=== PATIENT | female | born 1985 | race Caucasian/White ===

== ENCOUNTER 2016-03-25 05:00 | Inpatient (IN) | payer MEDICAID ==
[2016-03-24 10:44] LABS: ABSOLUTE BASOPHILS # (AUTO) 0.1 10^3/uL (0.0-0.2); ABSOLUTE EOSINOPHILS # (AUTO) 0.5 10^3/uL (0.0-0.6); ABSOLUTE LYMPHOCYTES (AUTO) 2.6 10^3/uL (0.5-4.7); ABSOLUTE MONOCYTES (AUTO) 0.8 10^3/uL (0.1-1.4); ABSOLUTE NEUT (AUTO) 9.6 10^3/uL (1.7-8.2); BASOPHILS % (AUTO) 0.5 % (0-2); EOSINOPHILS % (AUTO) 3.8 % (0-6); HEMATOCRIT 35.9 % (36.0-47.0); HGB HCT DIFFERENCE 0.1; LYMPHOCYTES % (AUTO) 19.4 % (13-45); MEAN CORPUSCULAR HGB CONC 33.4 g/dL (32.0-36.0); MEAN CORPUSCULAR VOLUME 78 fl (80-97); MONOCYTES % (AUTO) 6.2 % (3-13); RED BLOOD COUNT 4.62 10^6/uL (3.72-5.28); RED CELL DISTRIBUTION WIDTH 15.8 % (11.5-14.0); SEGMENTED NEUTROPHILS % (AUTO) 70.1 % (42-78); WHITE BLOOD COUNT 13.7 10^3/uL (4.0-10.5)
[2016-03-24 11:07] LABS: APPEARANCE,URINE CLEAR; BILIRUBIN,URINE NEGATIVE (NEGATIVE); GLUCOSE, URINE NEGATIVE (NEGATIVE); KETONES,URINE NEGATIVE (NEGATIVE); LEUKOCYTE ESTERASE,URINE NEGATIVE (NEGATIVE); NITRITE,URINE NEGATIVE (NEGATIVE); PROTEIN,URINE NEGATIVE (NEGATIVE); URINE SPECIFIC GRAVITY 1.018; UROBILINOGEN,URINE NEGATIVE mg/dL (<2.0)
[2016-03-24 21:01] LABS: URINE BARBITURATES SCREEN NEGATIVE; URINE METHADONE SCREEN NEGATIVE; URINE PHENCYCLIDINE SCREEN NEGATIVE
[~2016-03-25 05:00] MED LIST: CEFAZOLIN SODIUM 1 GM in DEXTROSE 5%-WATER 50 ML IV SCH; LACTATED RINGERS 1000 ML IV PRN; LIDOCAINE 0.5% INJ-PF (5 MG/ML) 50 ML SDV SUBCUT PRN; RINGERS SOLUTION,LACTATED 1,000 ML IV ONE
[2016-03-25] MEDS ORDERED: CEFAZOLIN 1 GM/D5W RTU 1 GM/50 ML RTUPB IV ONE (06:52)
[2016-03-25] MEDS ORDERED: DIPHENHYDRAMINE HCL 50 MG/ML VIAL IV PRN (08:19)
[2016-03-25] MEDS ORDERED: MEPERIDINE HCL/PF INJ 25 MG/1 ML DISP.SYRIN IV PRN (08:19)
[2016-03-25] MEDS ORDERED: OXYCODONE-ACETAMINOPHEN 5-325 MG TABLET PO PRN ×3 (08:19→11:13)
[2016-03-25] MEDS ORDERED: PROMETHAZINE HCL INJ 25 MG/1 ML VIAL IV PRN ×3 (08:19→11:13)
[2016-03-25] MEDS ORDERED: MORPHINE SULFATE 10 MG/ML INJ IV PRN (08:19)
[2016-03-25] MEDS ORDERED: FENTANYL CITRATE INJ/PF 100 MCG/2 ML AMPUL IV PRN ×3 (08:19)
--- NOTE | 2016-03-25 08:47 | Non Stress Test Report ---
Non Stress Test Datetime Report Generated by CPN: 03/25/2016 08:46 DEMOGRAPHIC EGA NST: 33.5 INDICATION Indication for Study: Decreased Movement; Ordered by Provider MONITORING Monitor Explained: Monitor Explained; Test Explained; Patient Verbalized Understanding Time on Monitor: 02/15/2016 17:38 Time off Monitor: 02/15/2016 18:07 NST Duration: 29 NST INTERVENTIONS NST Interventions: PO Hydration Physician Notified NST: Dr. Peters BABY A: [id number] BABY A Contraction Frequency : None FHR Baseline : 135 Accelerations : 15X15 Decelerations : None Variability : Moderate 6-25bpm NST Review: Meets Criteria for Reactive NST NST Review and Verified By : Kiran Pruitt, RN NST Results: Reactive NST REPORT Report Trigger: Send Report
[2016-03-25] MEDS ORDERED: OXYTOCIN 10 UNIT/ML VIAL ONE (09:13)
[2016-03-25] MEDS ORDERED: OXYTOCIN/NORMAL SALINE 20 UNIT/1,000 ML RTUINJ ONE (09:14)
[2016-03-25] MEDS ORDERED: FENTANYL CITRATE INJ/PF 100 MCG/2 ML AMPUL ONE (09:14)
[2016-03-25] MEDS ORDERED: MIDAZOLAM 2 MG/2 ML INJ ONE (09:14)
[2016-03-25] MEDS ORDERED: ACETAMINOPHEN 100 ML IV ONE (09:16)
[2016-03-25] MEDS ORDERED: MEPERIDINE HCL/PF INJ 25 MG/1 ML DISP.SYRIN ONE (10:02)
[2016-03-25] MEDS ORDERED: MORPHINE SULFATE 10 MG/ML INJ ONE (10:02)
--- NOTE | 2016-03-25 10:41 | Brief Operative Note ---
BRIEF OPERATIVE REPORT DATE OF SURGERY: 03/25/16 TIME OF SURGERY: 08:00 PREOPERATIVE DIAGNOSIS: 39w , previous section times 3, 10cm right ovarian cyst POSTOPERATIVE DIAGNOSIS: same, delivered, simple right ovarian cyst SURGEON: BIJAN MUÑOZ FINDINGS: vaible female weight 8-14, ap 8/9; spontaneous intact placenta 3vc; 10cm right simple ovarian cyst, normal uterus and tubes COMPLICATIONS: none ESTIMATED BLOOD LOSS: 600cc TISSUE REMOVED OR ALTERED: placenta, ovarian cyst TECHNICAL PROCEDURE: Repeat Low Transverse Section. Right Ovarian Cystectomy
[2016-03-25] MEDS ORDERED: SIMETHICONE 80 MG TAB.CHEW PO PRN (11:13)
[2016-03-25] MEDS ORDERED: HYDROMORPHONE HCL INJ/PF 2 MG/ML AMPULE IV PRN (11:13)
[2016-03-25] MEDS ORDERED: DIPH/PERTUSS(ACELL)/TETANUS VAC/PF 0.5 ML SYR (>=10YO) IM PRN (11:13)
[2016-03-25] MEDS ORDERED: MEASLES,MUMPS&RUBELLA VACC/PF 0.5 ML VIAL SUBCUT PRN (11:13)
[2016-03-25] MEDS ORDERED: ACETAMINOPHEN 325 MG TABLET PO PRN (11:13)
[2016-03-25] MEDS ORDERED: OXYTOCIN/NORMAL SALINE 1,000 ML IV PRN (11:13)
--- NOTE | 2016-03-25 12:01 | L&D Flow Sheet ---
LD Flowsheet Datetime Report Generated by CPN: 03/25/2016 12:00 Datetime: 03/25/2016 11:00 Respirations: 16 (Annette Ra, RN) Pain Scale: 2 (Annette Ra, RN) Pain Presence: Intermittent (Annette Ra, RN) Pain Type: Cramping (Annette Ra, RN) Pain Location: Abdomen (Annette Ra, RN) Pain Relief Measures: Comfort Measures (Annette Ra, RN) Datetime: 03/25/2016 10:45 Pulse: 61 (QS system process) SpO2 (%): 100 (QS system process) Pain Scale: 2 (Annette Ra, RN) Pain Presence: Intermittent (Annette Ra, RN) Pain Type: Cramping; Ache (Annette Ra, RN) Pain Location: Abdomen (Annette Ra, RN) Pain Relief Measures: Comfort Measures (Annette Ra, RN) Datetime: 03/25/2016 10:40 NBP Sys/Edel/Mean (mmHg): 106 (QS system process) : 71 (QS system process) : 82 (QS system process) Pulse: 70 (QS system process) Pulse: 64 (QS system process) SpO2 (%): 99 (QS system process) Datetime: 03/25/2016 10:35 Pulse: 60 (QS system process) SpO2 (%): 98 (QS system process) Datetime: 03/25/2016 10:30 Pulse: 57 (QS system process) Respirations: 17 (Annette Ra, RN) SpO2 (%): 100 (QS system process) Pain Scale: 2 (Annette Ra, RN) Pain Presence: Intermittent (Annette Ra, RN) Pain Type: Cramping; Ache (Annette Ra, RN) Pain Location: Abdomen (Annette Ra, RN) Pain Relief Measures: Comfort Measures (Annette Ra, RN) Datetime: 03/25/2016 10:25 NBP Sys/Deel/Mean (mmHg): 108 (QS system process) : 71 (QS system process) : 86 (QS system process) Pulse: 63 (QS system process) Pulse: 60 (QS system process) SpO2 (%): 99 (QS system process) Datetime: 03/25/2016 10:20 Pulse: 62 (QS system process) SpO2 (%): 99 (QS system process) Datetime: 03/25/2016 10:15 Pulse: 63 (QS system process) Respirations: 17 (Annette Ra, RN) SpO2 (%): 99 (QS system process) Pain Scale: 3 (Annette Knapp, RN) Pain Presence: Constant (Annette Knapp, RN) Pain Type: Burning; Ache (Annette Ra, RN) Pain Location: Abdomen (Annette Ra, RN) Pain Relief Measures: Comfort Measures (Annette Ra, RN) Datetime: 03/25/2016 10:10 NBP Sys/Edel/Mean (mmHg): 103 (QS system process) : 67 (QS system process) : 82 (QS system process) Pulse: 59 (QS system process) SpO2 (%): 99 (QS system process) Datetime: 03/25/2016 10:05 Pulse: 60 (QS system process) SpO2 (%): 99 (QS system process) Datetime: 03/25/2016 10:00 Pulse: 69 (QS system process) SpO2 (%): 98 (QS system process) Temperature (F): 98.0 (Annette Knapp RN) Temperature (C): 36.7 (QS system process) Pain Scale: 4 (Annette Knapp RN) Pain Presence: Intermittent (Annette Knapp RN) Pain Type: Burning; Ache (Annette Knapp RN) Pain Location: Abdomen (Annette Knapp RN) Pain Relief Measures: Comfort Measures (Annette Knapp RN) Pain Assessment Comments: pt requesting pain medication and medication for the shivering (Annette Knapp RN) Datetime: 03/25/2016 09:55 NBP Sys/Edel/Mean (mmHg): 106 (QS system process) : 64 (QS system process) : 78 (QS system process) Pulse: 71 (QS system process) Pulse: 67 (QS system process) SpO2 (%): 99 (QS system process) Datetime: 03/25/2016 09:50 Pulse: 74 (QS system process) SpO2 (%): 98 (QS system process) Datetime: 03/25/2016 09:45 Pulse: 66 (QS system process) Pulse: 64 (QS system process) SpO2 (%): 98 (QS system process) SpO2 (%): 94 (QS system process) Pain Scale: 0 (Annette Knapp RN) Pain Presence: None/Denies (Annette Knapp RN) Pain Type: N/A (Annette Knapp RN) Datetime: 03/25/2016 09:40 NBP Sys/Edel/Mean (mmHg): 102 (QS system process) : 63 (QS system process) : 78 (QS system process) Pulse: 69 (QS system process) Pulse: 74 (QS system process) SpO2 (%): 99 (QS system process) Datetime: 03/25/2016 09:35 Pulse: 77 (QS system process) SpO2 (%): 99 (QS system process) Datetime: 03/25/2016 09:30 Pulse: 91 (QS system process) SpO2 (%): 98 (QS system process) Pain Scale: 0 (Annette Ra, RN) Pain Presence: None/Denies (Annette Ra, RN) Pain Type: N/A (Annette Ra, RN) Datetime: 03/25/2016 09:25 NBP Sys/Edel/Mean (mmHg): 100 (QS system process) : 55 (QS system process) : 70 (QS system process) Pulse: 68 (QS system process) Pulse: 61 (QS system process) SpO2 (%): 100 (QS system process) Datetime: 03/25/2016 09:20 Pulse: 70 (QS system process) SpO2 (%): 98 (QS system process) Datetime: 03/25/2016 09:15 Pulse: 75 (QS system process) SpO2 (%): 98 (QS system process) Pain Scale: 0 (Annette Ra, RN) Pain Presence: None/Denies (Annette Ra, RN) Pain Type: N/A (Annette Ra, RN) Datetime: 03/25/2016 09:10 NBP Sys/Edel/Mean (mmHg): 98 (QS system process) : 55 (QS system process) : 71 (QS system process) Pulse: 70 (QS system process) Pulse: 74 (QS system process) SpO2 (%): 97 (QS system process) Datetime: 03/25/2016 09:08 NBP Sys/Edel/Mean (mmHg): 94 (QS system process) : 55 (QS system process) : 68 (QS system process) Pulse: 74 (QS system process) Datetime: 03/25/2016 09:06 Stage of : Recovery (Annette Knapp RN) NBP Sys/Edel/Mean (mmHg): 98 (QS system process) : 56 (QS system process) : 72 (QS system process) Pulse: 76 (QS system process) Datetime: 03/25/2016 09:02 Respirations: 16 (Annette Knapp RN) Temperature (F): 97.0 (Annette Knapp RN) Temperature (C): 36.1 (QS system process) Pain Scale: 0 (Annette Knapp RN) Pain Presence: None/Denies (Annette Knapp RN) Pain Type: N/A (Annette Knapp RN) LaborFlag: Antepartum (QS system process)
[2016-03-25] MEDS: OXYCODONE-ACETAMINOPHEN 5-325 MG TABLET PO PRN ×3 (12:28→23:54)
[2016-03-25] MEDS: RINGERS SOLUTION,LACTATED 1,000 ML IV PRN ×2 (12:31→20:40)
[2016-03-25] MEDS ORDERED: KETOROLAC TROMETHAMINE INJ/PF 30 MG/1 ML SDV IV SCH (14:00)
[2016-03-25] MEDS ORDERED: KETOROLAC TROMETHAMINE 60 MG/2 ML SDV ONE (14:24)
[2016-03-25] MEDS ORDERED: PHENYLEPHRINE HCL INJ/PF 10 MG/1 ML SDV ONE (14:24)
[2016-03-25] MEDS ORDERED: ONDANSETRON HCL INJ/PF 4 MG/2 ML SDV ONE (14:24)
[2016-03-25] MEDS: DOCUSATE SODIUM 100 MG CAPSULE PO SCH (17:30)
[2016-03-25] MEDS: KETOROLAC TROMETHAMINE INJ/PF 30 MG/1 ML SDV IV SCH (17:31)
[2016-03-26] MEDS: KETOROLAC TROMETHAMINE INJ/PF 30 MG/1 ML SDV IV SCH (02:06)
--- NOTE | 2016-03-26 06:11 | L&D Current Admission ---
Current Admit Datetime Report Generated by CPN: 03/26/2016 06:00 ADMISSION INFORMATION Chief Complaint: Decreased Movement (02/15/2016 17:53:Ade Brewster RN)
--- NOTE | 2016-03-26 06:12 | L&D General Admission ---
General Admit Datetime Report Generated by CPN: 03/26/2016 06:00 INFORMATION Patient Age: 30 (01/31/2016 21:05:QS system process) EDC: 03/30/2016 00:00 (01/31/2016 21:28:Bria Christian RN) EDC per Ultrasound: 03/30/2016 00:00 (01/31/2016 21:28:Bria Christian RN) LMP: 06/14/2015 00:00 (01/31/2016 21:28:Bria Christian RN) : 4 (01/31/2016 21:28:Bria Christian RN) Para: 3 (01/31/2016 21:28:Bria Christian RN) Term: 3 (01/31/2016 21:28:Bria Christian RN) : 0 (01/31/2016 21:28:Bria Christian RN) Spontaneous Abortions: 0 (01/31/2016 21:28:Bria Christian RN) Induced Abortions: 0 (01/31/2016 21:28:Bria Christian RN) Livin (01/31/2016 21:28:Bria Christian RN) Cesareans: 3 (01/31/2016 21:28:Bria Christian RN) VBACs: 0 (01/31/2016 21:28:Bria Christain RN) Ectopic: 0 (01/31/2016 21:28:Bria Christian RN) Multiple Births: 0 (01/31/2016 21:28:Bria Christian RN) Baby, Number in Womb: 1 (01/31/2016 21:28:Bria Christian RN) CARE Primary Director Product Safety: Other-Annotate (01/31/2016 21:28:Bria Christian RN) Director Product Safety [facility] (01/31/2016 21:28:Bria Christian RN) Month of 1st Visit: July (01/31/2016 21:28:Bria Christian RN) Adequate Care: Yes (01/31/2016 21:28:Bria Christian RN) Height (in): 65 (01/31/2016 21:23:QS system process) ALLERGIES Medication Allergy: No (01/31/2016 21:28:Bria Ring, RN) Medication Allergies: No Known Allergies (03/20/2016) (03/25/2016 07:42:QS system process) Latex Allergy: No Latex Allergies (01/31/2016 21:28:Bria Ring, RN) Food Allergies: None (01/31/2016 21:28:Bria Ring, RN) Environmental Allergies: None (01/31/2016 21:28:Bria Ring, RN) COMMUNICATION Primary Language: German (01/31/2016 21:28:Bria Ring, RN) Medical Tx Preferred Language: German (01/31/2016 21:28:Bria Ring, RN) DEMOGRAPHICS Address: [address] [place] [id number] (03/25/2016 07:42:QS system process) Zipcode: [id number] (01/31/2016 21:05:QS system process) Home (01/31/2016 21:05:QS system process) Work (01/31/2016 21:05:QS system process) SSN: [id number] (01/31/2016 21:05:QS system process) Next of Kin Name: ANJALI TEE (01/31/2016 21:05:QS system process) Next of Kin (01/31/2016 21:05:QS system process) Next of Kin Relationship: SPO (01/31/2016 21:05:QS system process) Date of : 1985 (01/31/2016 21:05:QS system process) Marital Status: (01/31/2016 21:05:QS system process) Sex: Female (01/31/2016 21:05:QS system process) Race: (01/31/2016 21:05:QS system process) Ethnicity: Non- or (01/31/2016 21:05:QS system process) Adventism: Hoahaoism (01/31/2016 21:05:QS system process) DRUG AND ALCOHOL USE Alcohol: No (01/31/2016 21:28:Bria Christian RN) Cigarettes: Former Smoker. [id number] (01/31/2016 21:28:Bria Christian RN) Marijuana: No (01/31/2016 21:28:Bria Christian RN) Cocaine: No (01/31/2016 21:28:Bria Christian RN) Other Illicit Drugs: No (01/31/2016 21:28:Bria Christian RN) VACCINE HISTORY Influenza Vaccine: No (01/31/2016 21:28:Bria Christian RN) Pneumococcal Vaccine: No (01/31/2016 21:28:Bria Christian RN) Tetanus Vaccine: Yes (01/31/2016 21:28:Bria Christian RN) Tdap Vaccine: Yes (01/31/2016 21:28:Bria Christian RN) Tdap Date: 2015 (01/31/2016 21:28:Bria Christian RN) Hepatitis B Vaccine: Yes (01/31/2016 21:28:Bria Christian RN) Feeding Preference: Breast (01/31/2016 21:28:Bria Christian RN) Benefit of Breast Feed Discussed: Yes (01/31/2016 21:28:Bria Christian RN) Circumcision: N/A (01/31/2016 21:28:Bria Christian RN) Classes Attended: No (01/31/2016 21:28:Bria Christian RN) Tubal Ligation: Yes (01/31/2016 21:28:Bria Christian RN) Consent: N/A (01/31/2016 21:28:Bria Christian RN) Consent Signed: N/A (01/31/2016 21:28:Bria Christian RN) Pain Management Plans: Spinal (01/31/2016 21:28:Bria Christian RN) Support Person: Anjali Tee (01/31/2016 21:28:Bria Christian RN) Support Person Relationship: (01/31/2016 21:28:Bria Christian RN) Cultural/Spritual Practice: No (01/31/2016 21:28:Bria Christian RN) Spir/Cult Dietary Needs: No (01/31/2016 21:28:Bria Christian RN) LIVING SITUATION/DISCHARGE PLAN Living Arrangements: House (01/31/2016 21:28:Bria Christian RN) Adequate Access to:: Electric; Heat; Refrigeration; Plumbing/Running water; Phone; Transportation (01/31/2016 21:28:Bria Christian RN) WIC Program: Yes (01/31/2016 21:28:Bria Christian RN) Discharge Water Manager Person: Anjali (01/31/2016 21:28:Bria Christian RN) Person to Help after Discharge: Anjali (01/31/2016 21:28:Bria Christian RN) Currently Using Commun Resources: Yes (01/31/2016 21:28:Bria Christian RN) Specify Current Resource Used: Medicaid and foodstamps (01/31/2016 21:28:Bria Christian RN) Outside Agency/Orange Picker: N/A (01/31/2016 21:28:Bria Christian RN) Car Seat for Discharge: Yes (01/31/2016 21:28:Bria Christian RN) Adoption Requested: No (01/31/2016 21:28:Bria Christian RN) Pt Contact w/infant Post : N/A (01/31/2016 21:28:Bria Ring, RN) LABS Blood Type: O Positive (01/31/2016 21:28:Bria Christian RN) Antibody Screen: Negative (01/31/2016 21:28:Bria Christian RN) Hemoglobin: 12.0 (03/24/2016 09:50:QS system process) Hematocrit: 35.9 L (03/24/2016 09:50:QS system process) MCV: 78 L (03/24/2016 09:50:QS system process) HIV Results: NEGATIVE (01/31/2016 22:01:QS system process) Rubella: POSITIVE NEGATIVE IF LESS THAN OR EQUAL TO 9.99 IU/mL POSITIVE IF GREATER THAN OR EQUAL TO 10.0 IU/mL (01/31/2016 22:01:QS system process) Rubella Titer: 23.60 (01/31/2016 22:01:QS system process) OB/PREVIOUS HISTORY LMP: 06/14/2015 00:00 (01/31/2016 21:28:Bria Christian RN) Previous Procedures: Ultrasound (01/31/2016 21:28:Bria Christian RN) Current Procedures: Ultrasound (01/31/2016 21:28:Bria Christian RN) History of Previous : Yes (01/31/2016 21:28:Bria Christian RN) History of Gestational Diabetes: No (01/31/2016 21:28:Bria Christian RN) History of PIH: No (01/31/2016 21:28:Bria Christian RN) History of Incompetent Cervix: No (01/31/2016 21:28:Bria Christian RN) History of Placenta Previa/Abrup: No (01/31/2016 21:28:Bria Christian RN) History of Macrosomia: Yes (01/31/2016 21:28:Bria Christian RN) History of IUGR: No (01/31/2016 21:28:Bria Christian RN) History of Hemorrhage: No (01/31/2016 21:28:Bria Christian RN) History of Loss/Stillborn: No (01/31/2016 21:28:Bria Christian RN) History of : No (01/31/2016 21:28:Bria Christian RN) History of D (Rh) Sensitization: No (01/31/2016 21:28:Bria Christian RN) History Recurrent Loss/Stillborn: No (01/31/2016 21:28:Bria Christian RN) History Depression/PP Depression: No (01/31/2016 21:28:Bria Christian RN) History of Uterine Anomaly/SUHAS: No (01/31/2016 21:28:Bria Christian RN) History of Infertility: No (01/31/2016 21:28:Brai Christian RN) History of ART Treatment: No (01/31/2016 21:28:Bria Christian RN) History of SUHAS: No (01/31/2016 21:28:Bria Christian RN) Comments Obstetrical History: G1: 2004; for breech presentation (42 weeks; baby turned during induction); boy 9#10 oz G2: 2006; repeat ; boy 8# 12 oz G3: 2012; repeat ; girl 10#15 oz (01/31/2016 21:28:Bria Christian RN) MEDICAL HISTORY Med Hx Diabetes: No (01/31/2016 21:28:Bria Christian RN) Med Hx Hypertension: No (01/31/2016 21:28:Bria Christian RN) Med Hx Heart Disease: No (01/31/2016 21:28:Bria Christian RN) Med Hx Autoimmune Disorder: No (01/31/2016 21:28:Bria Christian RN) Med Hx Kidney Disease/UTI: No (01/31/2016 21:28:Bria Christian RN) Med Hx Neurologic/Epilepsy: No (01/31/2016 21:28:Bria Christian RN) Med Hx Psychiatric Disorders: No (01/31/2016 21:28:Bria Christian RN) Med Hx Hepatitis/Liver Disease: No (01/31/2016 21:28:Bria Christian RN) Med Hx Varicosities/Phlebitis: No (01/31/2016 21:28:Bria Christian RN) Med Hx Thyroid Dysfunction: No (01/31/2016 21:28:Bria Christian RN) Med Hx Trauma/Violence: No (01/31/2016 21:28:Bria Christian RN) Med Hx Blood Transfusion: No (01/31/2016 21:28:Bria Christian RN) Med Hx Pulmonary (Asthma,TB): No (01/31/2016 21:28:Bria Christian RN) Med Hx Breast: No (01/31/2016 21:28:Bria Christian RN) Med Hx 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 MACHINE 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 Surgery: No (01/31/2016 21:28:Bria Christian RN) Med Hx Hospitalization/Surgery: Yes (01/31/2016 21:28:Bria Christian RN) Med Hx Anesthetic Complications: No (01/31/2016 21:28:Bria Christian RN) Med Hx Abnormal Pap Smear: Yes (01/31/2016 21:28:Bria Christian RN) Other Medical Diseases: No (01/31/2016 21:28:Bria Christian RN) Med Hx Significant Family Hx: No (01/31/2016 21:28:Bria Christian RN) Details of Med/Surg Hx: hospitalized for prior ; MRSA in 2014 (surgically removed in pubic area) (01/31/2016 21:28:Bria Christian RN) INFECTIOUS HISTORY Inf Hx Gonorrhea: No (01/31/2016 21:28:Bria Christian RN) Inf Hx Chlamydia: No (01/31/2016 21:28:Bria Christian RN) Inf Hx Syphilis: No (01/31/2016 21:28:Bria Christian RN) Inf Hx HIV/AIDS: No (01/31/2016 21:28:Bria Christian RN) Inf Hx Human Papilloma Virus: No (01/31/2016 21:28:Bria Christian RN) Inf Hx Pt/Partner Genital Herpes: No (01/31/2016 21:28:Bria Christian RN) Inf Hx Tuberculosis/Exposure: No (01/31/2016 21:28:Bria Christian RN) Inf Hx Hepatitis B,C: No (01/31/2016 21:28:Bria Christian RN) Inf Hx Rash or Viral Illness: No (01/31/2016 21:28:Bria Christian RN) GENETIC HISTORY Gen Hx Age >=35 at RK: Yes (01/31/2016 21:28:Bria Christian RN) Gen Hx Thalassemia: No (01/31/2016 21:28:Bria Christian RN) Gen Hx Congenital Heart Defect: No (01/31/2016 21:28:Bria Christian RN) Gen Hx Neural Tube Defect: No (01/31/2016 21:28:Bria Christian RN) Gen Hx Down's Syndrome: No (01/31/2016 21:28:Bria Christian RN) Gen Hx Allan-Sachs: No (01/31/2016 21:28:Bria Christian RN) Gen Hx Elio: No (01/31/2016 21:28:Bria Christian RN) Gen Hx Familial Dysautonomia: No (01/31/2016 21:28:Bria Christian RN) Gen Hx Sickle Cell Disease/Trait: Yes (01/31/2016 21:28:Bria Christian RN) Gen Hx Hemophilia/Blood Disorder: No (01/31/2016 21:28:Bria Christian RN) Gen Hx Muscular Dystrophy: No (01/31/2016 21:28:Bria Christian RN) Gen Hx Cystic Fibrosis: No (01/31/2016 21:28:Bria Christian RN) Gen Hx Huntingtons Chorea: No (01/31/2016 21:28:Bria Christian RN) Gen Hx Mental Retardation/Autism: No (01/31/2016 21:28:Bria Christian RN) Gen Hx Tested for Fragile X: No (01/31/2016 21:28:Bria Christian RN) Gen Hx Other Inher/Chromosomal: No (01/31/2016 21:28:Bria Christian RN) Gen Hx Maternal Metabolic DO: Yes (01/31/2016 21:28:Bria Christian RN) Gen Hx Pt Father or FOB Defect: No (01/31/2016 21:28:Bria Christian RN) Gen Hx Other Genetic History: No (01/31/2016 21:28:Bria Christian RN) Gen Hx Drugs/Meds since LMP: Yes (01/31/2016 21:28:Bria Christian RN) Gen Hx Medications: PNV; antacids (01/31/2016 21:28:Bria Christian RN) Details of Genetic History: RANDELL is 44 years old; FOB has sickle cell trait and all three children carry trait; FOB has cousins that from sickle cell; mom's father from type I diabetes (01/31/2016 21:28:Bria Christian RN)
[2016-03-26] MEDS: OXYCODONE-ACETAMINOPHEN 5-325 MG TABLET PO PRN ×3 (06:36→19:02)
[2016-03-26 07:51] LABS: HEMATOCRIT 29.8 % (36.0-47.0); HEMOGLOBIN 10.1 g/dL (12.0-15.5); HGB HCT DIFFERENCE 0.5; MEAN CORPUSCULAR HEMOGLOBIN 25.9 pg (27.0-33.4); MEAN CORPUSCULAR HGB CONC 33.9 g/dL (32.0-36.0); MEAN CORPUSCULAR VOLUME 77 fl (80-97); RED CELL DISTRIBUTION WIDTH 16.1 % (11.5-14.0); WHITE BLOOD COUNT 15.6 10^3/uL (4.0-10.5)
--- NOTE | 2016-03-26 09:02 | PDOC PROGRESS REPORT ---
Subjective-OB Subjective: Post Delivery Day: 1 30 year old. Denies any needs at this time, is voiding without difficulty, pain well controlled, lochia is stable, tolerating diet, passing gas. Physical Exam (OB) Vital Signs: Temp Pulse Resp BP Pulse Ox 98.1 F 87 16 111/63 99 03/26/16 07:24 03/26/16 07:24 03/26/16 07:24 03/26/16 07:24 03/26/16 07:24 Intake & Output 03/25/16 03/26/16 03/27/16 06:59 06:59 06:59 Intake Total 430 2850 Output Total 1500 Balance 430 1350 - Dressing Removed: No - medipore dressing removed; peripad placed over incision Incision: Dressing Closure Type: Sutures - Lochia Lochia Amount: Scant < 10 ml Lochia Color: Rubra/Red - Abdomen Description: Tender, Soft Hernia Present: No Fundal Description: Firm, Midline Fundal Height: u/u - u/2 Objective-Diagnostic Laboratory: 03/26/16 07:30 03/26/16 07:30 WBC 15.6 H RBC 3.90 Hgb 10.1 L Hct 29.8 L MCV 77 L MCH 25.9 L MCHC 33.9 RDW 16.1 H Plt Count 271 Assessment and Plan(PN) - Assessment and Plan (1) Status post repeat low transverse section Is this a current diagnosis for this admission?: YesPlan: routine post op care - Time Spent with Patient Time with patient: Less than 15 minutes Critical Time spent with patient: Less than 15 minutes Medications reviewed and adjusted accordingly: Yes - Disposition Anticipated Discharge: Home Within: within 24 hours
[2016-03-26] MEDS: PRENATAL VITAMIN W-O CA NO5/FE FUMARATE/FA CAPSULE PO SCH (09:18)
[2016-03-26] MEDS: IBUPROFEN 800 MG TABLET PO SCH ×3 (09:18→20:27)
[2016-03-26] MEDS: DOCUSATE SODIUM 100 MG CAPSULE PO SCH ×2 (09:19→19:02)
[2016-03-26] MEDS ORDERED: IBUPROFEN 800 MG TABLET PO SCH (12:00)
[2016-03-27] MEDS: OXYCODONE-ACETAMINOPHEN 5-325 MG TABLET PO PRN ×2 (01:08→07:06)
[2016-03-27] MEDS: IBUPROFEN 800 MG TABLET PO SCH ×2 (03:48→09:29)
--- NOTE | 2016-03-27 06:12 | L&D General Admission ---
General Admit Datetime Report Generated by CPN: 03/27/2016 06:00 INFORMATION Patient Age: 30 (01/31/2016 21:05:QS system process) EDC: 03/30/2016 00:00 (01/31/2016 21:28:Bria Christian RN) EDC per Ultrasound: 03/30/2016 00:00 (01/31/2016 21:28:Bria Christian RN) LMP: 06/14/2015 00:00 (01/31/2016 21:28:Bria Christian RN) : 4 (01/31/2016 21:28:Bria Christian RN) Para: 3 (01/31/2016 21:28:Bria Christian RN) Term: 3 (01/31/2016 21:28:Bria Christian RN) : 0 (01/31/2016 21:28:Bria Christian RN) Spontaneous Abortions: 0 (01/31/2016 21:28:Bria Christian RN) Induced Abortions: 0 (01/31/2016 21:28:Bria Christian RN) Livin (01/31/2016 21:28:Bria Christian RN) Cesareans: 3 (01/31/2016 21:28:Bria Christian RN) VBACs: 0 (01/31/2016 21:28:Bria Christian RN) Ectopic: 0 (01/31/2016 21:28:Bria Christian RN) Multiple Births: 0 (01/31/2016 21:28:Bria Christian RN) Baby, Number in Womb: 1 (01/31/2016 21:28:Bria Christian RN) CARE Primary Grounding Engineer: Other-Annotate (01/31/2016 21:28:Bria Christian RN) Grounding Engineer Other: [facility] (01/31/2016 21:28:Bria Christian RN) Month of 1st Visit: July (01/31/2016 21:28:Bria Christian RN) Adequate Care: Yes (01/31/2016 21:28:Bria Christian RN) Height (in): 65 (01/31/2016 21:23:QS system process) ALLERGIES Medication Allergy: No (01/31/2016 21:28:Bria Ring, RN) Medication Allergies: No Known Allergies (03/20/2016) (03/25/2016 07:42:QS system process) Latex Allergy: No Latex Allergies (01/31/2016 21:28:Bria Ring, RN) Food Allergies: None (01/31/2016 21:28:Bria Ring, RN) Environmental Allergies: None (01/31/2016 21:28:Bria Ring, RN) COMMUNICATION Primary Language: Yakut (01/31/2016 21:28:Bria Ring, RN) Medical Tx Preferred Language: Yakut (01/31/2016 21:28:Bria Ring, RN) DEMOGRAPHICS Address: [address] [place] [id number] (03/25/2016 07:42:QS system process) Zipcode: [id number] (01/31/2016 21:05:QS system process) Home (01/31/2016 21:05:QS system process) Work (01/31/2016 21:05:QS system process) SSN: [id number] (01/31/2016 21:05:QS system process) Next of Kin Name: ANJALI TEE (01/31/2016 21:05:QS system process) Next of Kin (01/31/2016 21:05:QS system process) Next of Kin Relationship: SPO (01/31/2016 21:05:QS system process) Date of : 1985 (01/31/2016 21:05:QS system process) Marital Status: (01/31/2016 21:05:QS system process) Sex: Female (01/31/2016 21:05:QS system process) Race: (01/31/2016 21:05:QS system process) Ethnicity: Non- or (01/31/2016 21:05:QS system process) Christian: Faith (01/31/2016 21:05:QS system process) DRUG AND ALCOHOL USE Alcohol: No (01/31/2016 21:28:Bria Christian RN) Cigarettes: Former Smoker. [id number] (01/31/2016 21:28:Bria Christian RN) Marijuana: No (01/31/2016 21:28:Bria Christian RN) Cocaine: No (01/31/2016 21:28:Bria Christian RN) Other Illicit Drugs: No (01/31/2016 21:28:Bria Christian RN) VACCINE HISTORY Influenza Vaccine: No (01/31/2016 21:28:Bria Christian RN) Pneumococcal Vaccine: No (01/31/2016 21:28:Bria Christian RN) Tetanus Vaccine: Yes (01/31/2016 21:28:Bria Christian RN) Tdap Vaccine: Yes (01/31/2016 21:28:Bria Christian RN) Tdap Date: 2015 (01/31/2016 21:28:Bria Christian RN) Hepatitis B Vaccine: Yes (01/31/2016 21:28:Bria Christian RN) Feeding Preference: Breast (01/31/2016 21:28:Bria Christian RN) Benefit of Breast Feed Discussed: Yes (01/31/2016 21:28:Bria Christian RN) Circumcision: N/A (01/31/2016 21:28:Bria Christian RN) Classes Attended: No (01/31/2016 21:28:Bria Christian RN) Tubal Ligation: Yes (01/31/2016 21:28:Bria Christian RN) Consent: N/A (01/31/2016 21:28:Bria Christian RN) Consent Signed: N/A (01/31/2016 21:28:Bria Christian RN) Pain Management Plans: Spinal (01/31/2016 21:28:Bria Christian RN) Support Person: Anjali Tee (01/31/2016 21:28:Bria Christian RN) Support Person Relationship: (01/31/2016 21:28:Bria Christian RN) Cultural/Spritual Practice: No (01/31/2016 21:28:Bria Christian RN) Spir/Cult Dietary Needs: No (01/31/2016 21:28:Bria Christian RN) LIVING SITUATION/DISCHARGE PLAN Living Arrangements: House (01/31/2016 21:28:Bria Christian RN) Adequate Access to:: Electric; Heat; Refrigeration; Plumbing/Running water; Phone; Transportation (01/31/2016 21:28:Bria Christian RN) WIC Program: Yes (01/31/2016 21:28:Bria Christian RN) Discharge Core Blower Person: Anjali (01/31/2016 21:28:Bria Christian RN) Person to Help after Discharge: Anjali (01/31/2016 21:28:Bria Christian RN) Currently Using Commun Resources: Yes (01/31/2016 21:28:Bria Christian RN) Specify Current Resource Used: Medicaid and foodstamps (01/31/2016 21:28:Bria Christian RN) Outside Agency/Loss Prevention Manager: N/A (01/31/2016 21:28:Bria Christian RN) Car Seat for Discharge: Yes (01/31/2016 21:28:Bria Christian RN) Adoption Requested: No (01/31/2016 21:28:Bria Christian RN) Pt Contact w/infant Post : N/A (01/31/2016 21:28:Bria Ring, RN) LABS Blood Type: O Positive (01/31/2016 21:28:Bria Christian RN) Antibody Screen: Negative (01/31/2016 21:28:Bria Christian RN) Hemoglobin: 10.1 L (03/26/2016 07:30:QS system process) Hematocrit: 29.8 L (03/26/2016 07:30:QS system process) MCV: 77 L (03/26/2016 07:30:QS system process) HIV Results: NEGATIVE (01/31/2016 22:01:QS system process) Rubella: POSITIVE NEGATIVE IF LESS THAN OR EQUAL TO 9.99 IU/mL POSITIVE IF GREATER THAN OR EQUAL TO 10.0 IU/mL (01/31/2016 22:01:QS system process) Rubella Titer: 23.60 (01/31/2016 22:01:QS system process) OB/PREVIOUS HISTORY LMP: 06/14/2015 00:00 (01/31/2016 21:28:Bria Christian RN) Previous Procedures: Ultrasound (01/31/2016 21:28:Bria Christian RN) Current Procedures: Ultrasound (01/31/2016 21:28:Bria Christian RN) History of Previous : Yes (01/31/2016 21:28:Bria Christian RN) History of Gestational Diabetes: No (01/31/2016 21:28:Bria Christian RN) History of PIH: No (01/31/2016 21:28:Bria Christian RN) History of Incompetent Cervix: No (01/31/2016 21:28:Bria Christian RN) History of Placenta Previa/Abrup: No (01/31/2016 21:28:Bria Christian RN) History of Macrosomia: Yes (01/31/2016 21:28:Bria Christian RN) History of IUGR: No (01/31/2016 21:28:Bria Christian RN) History of Hemorrhage: No (01/31/2016 21:28:Bria Christian RN) History of Loss/Stillborn: No (01/31/2016 21:28:Bria Christian RN) History of : No (01/31/2016 21:28:Bria Christian RN) History of D (Rh) Sensitization: No (01/31/2016 21:28:Bria Christian RN) History Recurrent Loss/Stillborn: No (01/31/2016 21:28:Bria Christian RN) History Depression/PP Depression: No (01/31/2016 21:28:Bria Christian RN) History of Uterine Anomaly/SUHAS: No (01/31/2016 21:28:Bria Christian RN) History of Infertility: No (01/31/2016 21:28:Bria Christian RN) History of ART Treatment: No (01/31/2016 21:28:Bria Christian RN) History of SUHAS: No (01/31/2016 21:28:Bria Christian RN) Comments Obstetrical History: G1: 2004; for breech presentation (42 weeks; baby turned during induction); boy 9#10 oz G2: 2006; repeat ; boy 8# 12 oz G3: 2012; repeat ; girl 10#15 oz (01/31/2016 21:28:Bria Christian RN) MEDICAL HISTORY Med Hx Diabetes: No (01/31/2016 21:28:Bria Christian RN) Med Hx Hypertension: No (01/31/2016 21:28:Bria Christian RN) Med Hx Heart Disease: No (01/31/2016 21:28:Bria Christian RN) Med Hx Autoimmune Disorder: No (01/31/2016 21:28:Bria Christian RN) Med Hx Kidney Disease/UTI: No (01/31/2016 21:28:Bira Christian RN) Med Hx Neurologic/Epilepsy: No (01/31/2016 21:28:Bria Christian RN) Med Hx Psychiatric Disorders: No (01/31/2016 21:28:Bria Christian RN) Med Hx Hepatitis/Liver Disease: No (01/31/2016 21:28:Bria Christian RN) Med Hx Varicosities/Phlebitis: No (01/31/2016 21:28:Bria Christian RN) Med Hx Thyroid Dysfunction: No (01/31/2016 21:28:Bria Christian RN) Med Hx Trauma/Violence: No (01/31/2016 21:28:Bria Christian RN) Med Hx Blood Transfusion: No (01/31/2016 21:28:Bria Christian RN) Med Hx Pulmonary (Asthma,TB): No (01/31/2016 21:28:Bria Christian RN) Med Hx Breast: No (01/31/2016 21:28:Bria Christian RN) Med Hx CATEGORY DEVELOPMENT MANAGER Surgery: No (01/31/2016 21:28:Bria Christian RN) Med Hx Hospitalization/Surgery: Yes (01/31/2016 21:28:Bria Christian RN) Med Hx Anesthetic Complications: No (01/31/2016 21:28:Bria Christian RN) Med Hx Abnormal Pap Smear: Yes (01/31/2016 21:28:Bria Christian RN) Other Medical Diseases: No (01/31/2016 21:28:Bria Christian RN) Med Hx Significant Family Hx: No (01/31/2016 21:28:Bria Christian RN) Details of Med/Surg Hx: hospitalized for prior ; MRSA in 2014 (surgically removed in pubic area) (01/31/2016 21:28:Bria Christian RN) INFECTIOUS HISTORY Inf Hx Gonorrhea: No (01/31/2016 21:28:Bria Christian RN) Inf Hx Chlamydia: No (01/31/2016 21:28:Bria Christian RN) Inf Hx Syphilis: No (01/31/2016 21:28:Bria Christian RN) Inf Hx HIV/AIDS: No (01/31/2016 21:28:Bria Christian RN) Inf Hx Human Papilloma Virus: No (01/31/2016 21:28:Bria Christian RN) Inf Hx Pt/Partner Genital Herpes: No (01/31/2016 21:28:Bria Christian RN) Inf Hx Tuberculosis/Exposure: No (01/31/2016 21:28:Bria Christian RN) Inf Hx Hepatitis B,C: No (01/31/2016 21:28:Bria Christian RN) Inf Hx Rash or Viral Illness: No (01/31/2016 21:28:Bria Christian RN) GENETIC HISTORY Gen Hx Age >=35 at RK: Yes (01/31/2016 21:28:Bria Christian RN) Gen Hx Thalassemia: No (01/31/2016 21:28:Bria Christian RN) Gen Hx Congenital Heart Defect: No (01/31/2016 21:28:Bria Christian RN) Gen Hx Neural Tube Defect: No (01/31/2016 21:28:Bria Christian RN) Gen Hx Down's Syndrome: No (01/31/2016 21:28:Bria Christian RN) Gen Hx Allan-Sachs: No (01/31/2016 21:28:Bria Christian RN) Gen Hx Elio: No (01/31/2016 21:28:Bria Christian RN) Gen Hx Familial Dysautonomia: No (01/31/2016 21:28:Bria Christian RN) Gen Hx Sickle Cell Disease/Trait: Yes (01/31/2016 21:28:Bria Christian RN) Gen Hx Hemophilia/Blood Disorder: No (01/31/2016 21:28:Bria Christian RN) Gen Hx Muscular Dystrophy: No (01/31/2016 21:28:Bria Christian RN) Gen Hx Cystic Fibrosis: No (01/31/2016 21:28:Bria Christian RN) Gen Hx [place] Chorea: No (01/31/2016 21:28:Bria Christian RN) Gen Hx Mental Retardation/Autism: No (01/31/2016 21:28:Bria Christian RN) Gen Hx Tested for Fragile X: No (01/31/2016 21:28:Bria Christian RN) Gen Hx Other Inher/Chromosomal: No (01/31/2016 21:28:Bria Christian RN) Gen Hx Maternal Metabolic DO: Yes (01/31/2016 21:28:Bria Christian RN) Gen Hx Pt Father or FOB Defect: No (01/31/2016 21:28:Bria Christian RN) Gen Hx Other Genetic History: No (01/31/2016 21:28:Bria Christian RN) Gen Hx Drugs/Meds since LMP: Yes (01/31/2016 21:28:Bria Christian RN) Gen Hx Medications: PNV; antacids (01/31/2016 21:28:Bria Christian RN) Details of Genetic History: RANDELL is 44 years old; FOB has sickle cell trait and all three children carry trait; FOB has cousins that from sickle cell; mom's father from type I diabetes (01/31/2016 21:28:Bria Christian RN)
--- NOTE | 2016-03-27 06:12 | L&D Current Admission ---
Current Admit Datetime Report Generated by CPN: 03/27/2016 06:00 ADMISSION INFORMATION Chief Complaint: Decreased Movement (02/15/2016 17:53:Ade Brewster RN)
[2016-03-27] MEDS: DOCUSATE SODIUM 100 MG CAPSULE PO SCH (09:28)
[2016-03-27] MEDS: PRENATAL VITAMIN W-O CA NO5/FE FUMARATE/FA CAPSULE PO SCH (09:29)
[2016-03-27 12:07] VITALS: BP 113/73
--- NOTE | 2016-03-27 13:24 | PDOC DISCHARGE SUMMARY ---
Discharge Summary-OB Discharge Date: 03/27/16 - Final Diagnosis (1) Status post repeat low transverse section Is this a current diagnosis for this admission?: Yes - Discharge Medication Home Medications: Vit/Iron Fumarate/FA [ Tablet] 1 each PO DAILY 01/31/16 Docusate Sodium [Colace 100 mg Capsule] 100 mg PO BID #60 capsule 03/27/16 Ferrous Sulfate [Feosol 325 mg Tablet] 325 mg PO BID #60 tab 03/27/16 Ibuprofen [Motrin 800 mg Tablet] 800 mg PO Q8HP PRN #90 tablet 03/27/16 Oxycodone HCl/Acetaminophen [Percocet 5-325 mg Tablet] 1 tab PO Q4HP PRN #30 tablet 03/27/16 Pnv W-O Ca No5/Fe Fumarate/FA [-U Multiple Vitamin Capsule] 1 cap PO DAILY #0 capsule 03/27/16 Reason(s) for Admission: Ceasarean Section-Repeat Procedures: NST, Ultrasound Intrapartum Procedure(s): : Low Cervical, Transverse - [place] Data Baby 1 Female at 1 minute: 8 at 5 minutes: 9 Weight: 4.026 kg Home with Mother: Yes Complications: No - Diagnosis Test Laboratory: Temp Pulse Resp BP Pulse Ox 97.7 F 76 18 110/62 100 03/27/16 09:50 03/27/16 09:50 03/27/16 09:50 03/27/16 09:50 03/27/16 09:50 03/24/16 03/24/16 03/26/16 09:45 09:50 07:30 RBC 4.62 3.90 Hgb 12.0 10.1 L Hct 35.9 L 29.8 L Urine Opiates Screen NEGATIVE - Discharge information/Instructions Discharge Activity: Activity As Tolerated, No Driving, No Lifting Over 10 Pounds , No Lifting/Push/Pulling, Pelvic Rest, No tub bath Discharge Diet: As Tolerated Disposition: HOME, SELF-CARE Follow up with: [facility] in: 1, Weeks - incision check Physical Exam (OB) Vital Signs: Temp Pulse Resp BP Pulse Ox 97.7 F 76 18 110/62 100 03/27/16 09:50 03/27/16 09:50 03/27/16 09:50 03/27/16 09:50 03/27/16 09:50 Intake & Output 03/26/16 03/27/16 03/28/16 06:59 06:59 06:59 Intake Total 2850 1580 400 Output Total 1500 Balance 1350 1580 400 - General General Appearance: Appears well, Alert In distress: None - Dressing Removed: Yes - pink peripad in place over sutures Incision: Well Approximated Closure Type: Sutures - Lochia Lochia Amount: Scant < 10 ml Lochia Color: Rubra/Red - Abdomen Description: Tender, Soft Hernia Present: No Flatus Presence: Present Fundal Description: Firm, Midline Fundal Height: u/u - u/2 - Respiratory Respiratory Status: No respiratory distress - Extremities Upper extremity: Normal inspection Lower extremities: Normal inspection - Neurological Cognition: Normal Orientation: AAOx4 - Psychological Associated symptoms: Normal affect, Normal mood - bonding well with baby, family supportive and at bedside
--- NOTE | 2016-03-28 06:13 | L&D Current Admission ---
Current Admit Datetime Report Generated by CPN: 03/28/2016 06:00 ADMISSION INFORMATION Chief Complaint: Decreased Movement (02/15/2016 17:53:Ade Brewster RN)
--- NOTE | 2016-03-28 06:13 | L&D General Admission ---
General Admit Datetime Report Generated by CPN: 03/28/2016 06:00 INFORMATION Patient Age: 30 (01/31/2016 21:05:QS system process) EDC: 03/30/2016 00:00 (01/31/2016 21:28:Bria Christian RN) EDC per Ultrasound: 03/30/2016 00:00 (01/31/2016 21:28:Bria Christian RN) LMP: 06/14/2015 00:00 (01/31/2016 21:28:Bria Christian RN) : 4 (01/31/2016 21:28:Bria Christian RN) Para: 3 (01/31/2016 21:28:Bria Christian RN) Term: 3 (01/31/2016 21:28:Bria Christian RN) : 0 (01/31/2016 21:28:Bria Christian RN) Spontaneous Abortions: 0 (01/31/2016 21:28:Bria Christian RN) Induced Abortions: 0 (01/31/2016 21:28:Bria Christian RN) Livin (01/31/2016 21:28:Bria Christian RN) Cesareans: 3 (01/31/2016 21:28:Bria Christian RN) VBACs: 0 (01/31/2016 21:28:Bria Christian RN) Ectopic: 0 (01/31/2016 21:28:Bria Christian RN) Multiple Births: 0 (01/31/2016 21:28:Bria Christian RN) Baby, Number in Womb: 1 (01/31/2016 21:28:Bria Christian RN) CARE Primary Display Manager: Other-Annotate (01/31/2016 21:28:Bria Christian RN) Display Manager Other: [facility] (01/31/2016 21:28:Bria Christian RN) Month of 1st Visit: July (01/31/2016 21:28:Bria Christian RN) Adequate Care: Yes (01/31/2016 21:28:Bria Christian RN) Height (in): 65 (01/31/2016 21:23:QS system process) ALLERGIES Medication Allergy: No (01/31/2016 21:28:Bria Ring, RN) Medication Allergies: No Known Allergies (03/20/2016) (03/25/2016 07:42:QS system process) Latex Allergy: No Latex Allergies (01/31/2016 21:28:Bria Ring, RN) Food Allergies: None (01/31/2016 21:28:Bria Ring, RN) Environmental Allergies: None (01/31/2016 21:28:Bria Ring, RN) COMMUNICATION Primary Language: Arabic (01/31/2016 21:28:Bria Ring, RN) Medical Tx Preferred Language: Arabic (01/31/2016 21:28:Bria Ring, RN) DEMOGRAPHICS Address: [address] [place] [id number] (03/25/2016 07:42:QS system process) Zipcode: [id number] (01/31/2016 21:05:QS system process) Home (01/31/2016 21:05:QS system process) Work (01/31/2016 21:05:QS system process) SSN: [id number] (01/31/2016 21:05:QS system process) Next of Kin Name: ANJALI TEE (01/31/2016 21:05:QS system process) Next of Kin (01/31/2016 21:05:QS system process) Next of Kin Relationship: SPO (01/31/2016 21:05:QS system process) Date of : 1985 (01/31/2016 21:05:QS system process) Marital Status: (01/31/2016 21:05:QS system process) Sex: Female (01/31/2016 21:05:QS system process) Race: (01/31/2016 21:05:QS system process) Ethnicity: Non- or (01/31/2016 21:05:QS system process) Yarsani: Uatsdin (01/31/2016 21:05:QS system process) DRUG AND ALCOHOL USE Alcohol: No (01/31/2016 21:28:Bria Christian RN) Cigarettes: Former Smoker. [id number] (01/31/2016 21:28:Bria Christian RN) Marijuana: No (01/31/2016 21:28:Bria Christian RN) Cocaine: No (01/31/2016 21:28:Bria Christian RN) Other Illicit Drugs: No (01/31/2016 21:28:Bria Christian RN) VACCINE HISTORY Influenza Vaccine: No (01/31/2016 21:28:Bria Christian RN) Pneumococcal Vaccine: No (01/31/2016 21:28:Bria Christian RN) Tetanus Vaccine: Yes (01/31/2016 21:28:Bria Christian RN) Tdap Vaccine: Yes (01/31/2016 21:28:Bria Christian RN) Tdap Date: 2015 (01/31/2016 21:28:Bria Christian RN) Hepatitis B Vaccine: Yes (01/31/2016 21:28:Bria Christian RN) Feeding Preference: Breast (01/31/2016 21:28:Bria Christian RN) Benefit of Breast Feed Discussed: Yes (01/31/2016 21:28:Bria Christian RN) Circumcision: N/A (01/31/2016 21:28:Bria Christian RN) Classes Attended: No (01/31/2016 21:28:Bria Christian RN) Tubal Ligation: Yes (01/31/2016 21:28:Bria Christian RN) Consent: N/A (01/31/2016 21:28:Bria Christian RN) Consent Signed: N/A (01/31/2016 21:28:Bria Christian RN) Pain Management Plans: Spinal (01/31/2016 21:28:Bria Christian RN) Support Person: Anjali Tee (01/31/2016 21:28:Bria Christian RN) Support Person Relationship: (01/31/2016 21:28:Bria Christian RN) Cultural/Spritual Practice: No (01/31/2016 21:28:Bria Christian RN) Spir/Cult Dietary Needs: No (01/31/2016 21:28:Bria Christian RN) LIVING SITUATION/DISCHARGE PLAN Living Arrangements: House (01/31/2016 21:28:Bria Christian RN) Adequate Access to:: Electric; Heat; Refrigeration; Plumbing/Running water; Phone; Transportation (01/31/2016 21:28:Bria Christian RN) WIC Program: Yes (01/31/2016 21:28:Bria Christian RN) Discharge Digital Computer Operator Person: Anjali (01/31/2016 21:28:Bria Christian RN) Person to Help after Discharge: Anjali (01/31/2016 21:28:Bria Christian RN) Currently Using Commun Resources: Yes (01/31/2016 21:28:Bria Christian RN) Specify Current Resource Used: Medicaid and foodstamps (01/31/2016 21:28:Bria Christian RN) Outside Agency/Summer School Coordinator: N/A (01/31/2016 21:28:Bria Christian RN) Car Seat for Discharge: Yes (01/31/2016 21:28:Bria Christian RN) Adoption Requested: No (01/31/2016 21:28:Bria Christian RN) Pt Contact w/infant Post : N/A (01/31/2016 21:28:Bria Ring, RN) LABS Blood Type: O Positive (01/31/2016 21:28:Bria Christian RN) Antibody Screen: Negative (01/31/2016 21:28:Bria Christian RN) Hemoglobin: 10.1 L (03/26/2016 07:30:QS system process) Hematocrit: 29.8 L (03/26/2016 07:30:QS system process) MCV: 77 L (03/26/2016 07:30:QS system process) HIV Results: NEGATIVE (01/31/2016 22:01:QS system process) Rubella: POSITIVE NEGATIVE IF LESS THAN OR EQUAL TO 9.99 IU/mL POSITIVE IF GREATER THAN OR EQUAL TO 10.0 IU/mL (01/31/2016 22:01:QS system process) Rubella Titer: 23.60 (01/31/2016 22:01:QS system process) OB/PREVIOUS HISTORY LMP: 06/14/2015 00:00 (01/31/2016 21:28:Bria Christian RN) Previous Procedures: Ultrasound (01/31/2016 21:28:Bria Christian RN) Current Procedures: Ultrasound (01/31/2016 21:28:Bria Christian RN) History of Previous : Yes (01/31/2016 21:28:Bria Christian RN) History of Gestational Diabetes: No (01/31/2016 21:28:Bria Christian RN) History of PIH: No (01/31/2016 21:28:Bria Christian RN) History of Incompetent Cervix: No (01/31/2016 21:28:Bria Christian RN) History of Placenta Previa/Abrup: No (01/31/2016 21:28:Bria Christian RN) History of Macrosomia: Yes (01/31/2016 21:28:Bria Christian RN) History of IUGR: No (01/31/2016 21:28:Bria Christian RN) History of Hemorrhage: No (01/31/2016 21:28:Bria Christian RN) History of Loss/Stillborn: No (01/31/2016 21:28:Bria Christian RN) History of : No (01/31/2016 21:28:Bria Christian RN) History of D (Rh) Sensitization: No (01/31/2016 21:28:Bria Christian RN) History Recurrent Loss/Stillborn: No (01/31/2016 21:28:Bria Christian RN) History Depression/PP Depression: No (01/31/2016 21:28:Bria Christian RN) History of Uterine Anomaly/SUHAS: No (01/31/2016 21:28:Bria Christian RN) History of Infertility: No (01/31/2016 21:28:Bria Christian RN) History of ART Treatment: No (01/31/2016 21:28:Bria Christian RN) History of SUHAS: No (01/31/2016 21:28:Bria Christian RN) Comments Obstetrical History: G1: 2004; for breech presentation (42 weeks; baby turned during induction); boy 9#10 oz G2: 2006; repeat ; boy 8# 12 oz G3: 2012; repeat ; girl 10#15 oz (01/31/2016 21:28:Bria Christian RN) MEDICAL HISTORY Med Hx Diabetes: No (01/31/2016 21:28:Bria Christian RN) Med Hx Hypertension: No (01/31/2016 21:28:Bria Christian RN) Med Hx Heart Disease: No (01/31/2016 21:28:Bria Christian RN) Med Hx Autoimmune Disorder: No (01/31/2016 21:28:Bria Christian RN) Med Hx Kidney Disease/UTI: No (01/31/2016 21:28:Bria Christian RN) Med Hx Neurologic/Epilepsy: No (01/31/2016 21:28:Bria Christian RN) Med Hx Psychiatric Disorders: No (01/31/2016 21:28:Bria Christian RN) Med Hx Hepatitis/Liver Disease: No (01/31/2016 21:28:Bria Christian RN) Med Hx Varicosities/Phlebitis: No (01/31/2016 21:28:Bria Christian RN) Med Hx Thyroid Dysfunction: No (01/31/2016 21:28:Bria Christian RN) Med Hx Trauma/Violence: No (01/31/2016 21:28:Bria Christian RN) Med Hx Blood Transfusion: No (01/31/2016 21:28:Bria Christian RN) Med Hx Pulmonary (Asthma,TB): No (01/31/2016 21:28:Bria Christian RN) Med Hx Breast: No (01/31/2016 21:28:Bria Christian RN) Med Hx MOLASSES AND CARAMEL OPERATOR Surgery: No (01/31/2016 21:28:Bria Christian RN) Med Hx Hospitalization/Surgery: Yes (01/31/2016 21:28:Bria Christian RN) Med Hx Anesthetic Complications: No (01/31/2016 21:28:Bria Christian RN) Med Hx Abnormal Pap Smear: Yes (01/31/2016 21:28:Bria Christian RN) Other Medical Diseases: No (01/31/2016 21:28:Bria Christian RN) Med Hx Significant Family Hx: No (01/31/2016 21:28:Bria Christian RN) Details of Med/Surg Hx: hospitalized for prior ; MRSA in 2014 (surgically removed in pubic area) (01/31/2016 21:28:Bria Christian RN) INFECTIOUS HISTORY Inf Hx Gonorrhea: No (01/31/2016 21:28:Bria Christian RN) Inf Hx Chlamydia: No (01/31/2016 21:28:Bria Christian RN) Inf Hx Syphilis: No (01/31/2016 21:28:Bria Christian RN) Inf Hx HIV/AIDS: No (01/31/2016 21:28:Bria Christian RN) Inf Hx Human Papilloma Virus: No (01/31/2016 21:28:Bria Christian RN) Inf Hx Pt/Partner Genital Herpes: No (01/31/2016 21:28:Bria Christian RN) Inf Hx Tuberculosis/Exposure: No (01/31/2016 21:28:Bria Christian RN) Inf Hx Hepatitis B,C: No (01/31/2016 21:28:Bria Christian RN) Inf Hx Rash or Viral Illness: No (01/31/2016 21:28:Bria Christian RN) GENETIC HISTORY Gen Hx Age >=35 at RK: Yes (01/31/2016 21:28:Bria Christian RN) Gen Hx Thalassemia: No (01/31/2016 21:28:Bria Christian RN) Gen Hx Congenital Heart Defect: No (01/31/2016 21:28:Bria Christian RN) Gen Hx Neural Tube Defect: No (01/31/2016 21:28:Bria Christian RN) Gen Hx Down's Syndrome: No (01/31/2016 21:28:Bria Christian RN) Gen Hx Allan-Sachs: No (01/31/2016 21:28:Bria Christian RN) Gen Hx Elio: No (01/31/2016 21:28:Bria Christian RN) Gen Hx Familial Dysautonomia: No (01/31/2016 21:28:Bria Christian RN) Gen Hx Sickle Cell Disease/Trait: Yes (01/31/2016 21:28:Bria Christian RN) Gen Hx Hemophilia/Blood Disorder: No (01/31/2016 21:28:Bria Christian RN) Gen Hx Muscular Dystrophy: No (01/31/2016 21:28:Bria Christian RN) Gen Hx Cystic Fibrosis: No (01/31/2016 21:28:Bria Christian RN) Gen Hx [place] Chorea: No (01/31/2016 21:28:Bria Christian RN) Gen Hx Mental Retardation/Autism: No (01/31/2016 21:28:Bria Christian RN) Gen Hx Tested for Fragile X: No (01/31/2016 21:28:Bria Christian RN) Gen Hx Other Inher/Chromosomal: No (01/31/2016 21:28:Bria Christian RN) Gen Hx Maternal Metabolic DO: Yes (01/31/2016 21:28:Bria Chirstian RN) Gen Hx Pt Father or FOB Defect: No (01/31/2016 21:28:Bria Christian RN) Gen Hx Other Genetic History: No (01/31/2016 21:28:Bria Christian RN) Gen Hx Drugs/Meds since LMP: Yes (01/31/2016 21:28:Bria Christian RN) Gen Hx Medications: PNV; antacids (01/31/2016 21:28:Bria Christian RN) Details of Genetic History: RANDELL is 42 years old; FOB has sickle cell trait and all three children carry trait; FOB has cousins that from sickle cell; mom's father from type I diabetes (01/31/2016 21:28:Bria Christian RN)
--- NOTE | 2016-03-29 06:11 | L&D Current Admission ---
Current Admit Datetime Report Generated by CPN: 03/29/2016 06:00 ADMISSION INFORMATION Chief Complaint: Decreased Movement (02/15/2016 17:53:Ade Brewster RN)
--- NOTE | 2016-03-29 06:11 | L&D General Admission ---
General Admit Datetime Report Generated by CPN: 03/29/2016 06:00 INFORMATION Patient Age: 30 (01/31/2016 21:05:QS system process) EDC: 03/30/2016 00:00 (01/31/2016 21:28:Bria Christian RN) EDC per Ultrasound: 03/30/2016 00:00 (01/31/2016 21:28:Bria Christian RN) LMP: 06/14/2015 00:00 (01/31/2016 21:28:Bria Christian RN) : 4 (01/31/2016 21:28:Bria Christian RN) Para: 3 (01/31/2016 21:28:Bria Christian RN) Term: 3 (01/31/2016 21:28:Bria Christian RN) : 0 (01/31/2016 21:28:Bria Christian RN) Spontaneous Abortions: 0 (01/31/2016 21:28:Bria Christian RN) Induced Abortions: 0 (01/31/2016 21:28:Bria Christian RN) Livin (01/31/2016 21:28:Bria Christian RN) Cesareans: 3 (01/31/2016 21:28:Bria Christian RN) VBACs: 0 (01/31/2016 21:28:Bria Christian RN) Ectopic: 0 (01/31/2016 21:28:Bria Christian RN) Multiple Births: 0 (01/31/2016 21:28:Bria Christian RN) Baby, Number in Womb: 1 (01/31/2016 21:28:Bria Christian RN) CARE Primary Hand Ii Tube Bender: Other-Annotate (01/31/2016 21:28:Bria Christian RN) Hand Ii Tube Bender [facility] (01/31/2016 21:28:Bria Christian RN) Month of 1st Visit: July (01/31/2016 21:28:Bria Christian RN) Adequate Care: Yes (01/31/2016 21:28:Bria Christian RN) Height (in): 65 (01/31/2016 21:23:QS system process) ALLERGIES Medication Allergy: No (01/31/2016 21:28:Bria Ring, RN) Medication Allergies: No Known Allergies (03/20/2016) (03/25/2016 07:42:QS system process) Latex Allergy: No Latex Allergies (01/31/2016 21:28:Bria Ring, RN) Food Allergies: None (01/31/2016 21:28:Bria Ring, RN) Environmental Allergies: None (01/31/2016 21:28:Bria Ring, RN) COMMUNICATION Primary Language: Sami (01/31/2016 21:28:Bria Ring, RN) Medical Tx Preferred Language: Sami (01/31/2016 21:28:Bria Ring, RN) DEMOGRAPHICS Address: [address] [place] [id number] (03/25/2016 07:42:QS system process) Zipcode: [id number] (01/31/2016 21:05:QS system process) Home (01/31/2016 21:05:QS system process) Work (01/31/2016 21:05:QS system process) SSN: [id number] (01/31/2016 21:05:QS system process) Next of Kin Name: ANJALI TEE (01/31/2016 21:05:QS system process) Next of Kin (01/31/2016 21:05:QS system process) Next of Kin Relationship: SPO (01/31/2016 21:05:QS system process) Date of : 1985 (01/31/2016 21:05:QS system process) Marital Status: (01/31/2016 21:05:QS system process) Sex: Female (01/31/2016 21:05:QS system process) Race: (01/31/2016 21:05:QS system process) Ethnicity: Non- or (01/31/2016 21:05:QS system process) Adventist: Shinto (01/31/2016 21:05:QS system process) DRUG AND ALCOHOL USE Alcohol: No (01/31/2016 21:28:Bria Christian RN) Cigarettes: Former Smoker. [id number] (01/31/2016 21:28:Bria Christian RN) Marijuana: No (01/31/2016 21:28:Bria Christian RN) Cocaine: No (01/31/2016 21:28:Bria Christian RN) Other Illicit Drugs: No (01/31/2016 21:28:Bria Christian RN) VACCINE HISTORY Influenza Vaccine: No (01/31/2016 21:28:Bria Christian RN) Pneumococcal Vaccine: No (01/31/2016 21:28:Bria Christian RN) Tetanus Vaccine: Yes (01/31/2016 21:28:Bria Christian RN) Tdap Vaccine: Yes (01/31/2016 21:28:Bria Christian RN) Tdap Date: 2015 (01/31/2016 21:28:Bria Christian RN) Hepatitis B Vaccine: Yes (01/31/2016 21:28:Bria Christian RN) Feeding Preference: Breast (01/31/2016 21:28:Bria Christian RN) Benefit of Breast Feed Discussed: Yes (01/31/2016 21:28:Bria Christian RN) Circumcision: N/A (01/31/2016 21:28:Bria Christian RN) Classes Attended: No (01/31/2016 21:28:Bria Christian RN) Tubal Ligation: Yes (01/31/2016 21:28:Bria Christian RN) Consent: N/A (01/31/2016 21:28:Bria Christian RN) Consent Signed: N/A (01/31/2016 21:28:Bria Christian RN) Pain Management Plans: Spinal (01/31/2016 21:28:Bria Christian RN) Support Person: Anjali Tee (01/31/2016 21:28:Bria Christian RN) Support Person Relationship: (01/31/2016 21:28:Bria Christian RN) Cultural/Spritual Practice: No (01/31/2016 21:28:Bria Christian RN) Spir/Cult Dietary Needs: No (01/31/2016 21:28:Bria Christian RN) LIVING SITUATION/DISCHARGE PLAN Living Arrangements: House (01/31/2016 21:28:Bria Christian RN) Adequate Access to:: Electric; Heat; Refrigeration; Plumbing/Running water; Phone; Transportation (01/31/2016 21:28:Bria Christian RN) WIC Program: Yes (01/31/2016 21:28:Bria Christian RN) Discharge Clin Nurse Person: Anjali (01/31/2016 21:28:Bria Christian RN) Person to Help after Discharge: Anjali (01/31/2016 21:28:Bria Christian RN) Currently Using Commun Resources: Yes (01/31/2016 21:28:Bria hCristian RN) Specify Current Resource Used: Medicaid and foodstamps (01/31/2016 21:28:Bria Christian RN) Outside Agency/Fishing Tool Supervisor: N/A (01/31/2016 21:28:Bria Christian RN) Car Seat for Discharge: Yes (01/31/2016 21:28:Bria Christian RN) Adoption Requested: No (01/31/2016 21:28:Bria Christian RN) Pt Contact w/infant Post : N/A (01/31/2016 21:28:Bria Ring, RN) LABS Blood Type: O Positive (01/31/2016 21:28:Bria Christian RN) Antibody Screen: Negative (01/31/2016 21:28:Bria Christian RN) Hemoglobin: 10.1 L (03/26/2016 07:30:QS system process) Hematocrit: 29.8 L (03/26/2016 07:30:QS system process) MCV: 77 L (03/26/2016 07:30:QS system process) HIV Results: NEGATIVE (01/31/2016 22:01:QS system process) Rubella: POSITIVE NEGATIVE IF LESS THAN OR EQUAL TO 9.99 IU/mL POSITIVE IF GREATER THAN OR EQUAL TO 10.0 IU/mL (01/31/2016 22:01:QS system process) Rubella Titer: 23.60 (01/31/2016 22:01:QS system process) OB/PREVIOUS HISTORY LMP: 06/14/2015 00:00 (01/31/2016 21:28:Bria Christian RN) Previous Procedures: Ultrasound (01/31/2016 21:28:Bria Christian RN) Current Procedures: Ultrasound (01/31/2016 21:28:Bria Christian RN) History of Previous : Yes (01/31/2016 21:28:Bria Christian RN) History of Gestational Diabetes: No (01/31/2016 21:28:Bria Christian RN) History of PIH: No (01/31/2016 21:28:Bria Christian RN) History of Incompetent Cervix: No (01/31/2016 21:28:Bria Christian RN) History of Placenta Previa/Abrup: No (01/31/2016 21:28:Bria Christian RN) History of Macrosomia: Yes (01/31/2016 21:28:Bria Christian RN) History of IUGR: No (01/31/2016 21:28:Bria Christian RN) History of Hemorrhage: No (01/31/2016 21:28:Bria Christian RN) History of Loss/Stillborn: No (01/31/2016 21:28:Bria Christian RN) History of : No (01/31/2016 21:28:Bria Christian RN) History of D (Rh) Sensitization: No (01/31/2016 21:28:Bria Christian RN) History Recurrent Loss/Stillborn: No (01/31/2016 21:28:Bria Christian RN) History Depression/PP Depression: No (01/31/2016 21:28:Bria Christian RN) History of Uterine Anomaly/SUHAS: No (01/31/2016 21:28:Bria Christian RN) History of Infertility: No (01/31/2016 21:28:Bria Christian RN) History of ART Treatment: No (01/31/2016 21:28:Bria Christian RN) History of SUHAS: No (01/31/2016 21:28:Bria Christian RN) Comments Obstetrical History: G1: 2004; for breech presentation (42 weeks; baby turned during induction); boy 9#10 oz G2: 2006; repeat ; boy 8# 12 oz G3: 2012; repeat ; girl 10#15 oz (01/31/2016 21:28:Bria Christian RN) MEDICAL HISTORY Med Hx Diabetes: No (01/31/2016 21:28:Bria Christian RN) Med Hx Hypertension: No (01/31/2016 21:28:Bria Christian RN) Med Hx Heart Disease: No (01/31/2016 21:28:Bria Christian RN) Med Hx Autoimmune Disorder: No (01/31/2016 21:28:Bria Christian RN) Med Hx Kidney Disease/UTI: No (01/31/2016 21:28:Bria Christian RN) Med Hx Neurologic/Epilepsy: No (01/31/2016 21:28:Bria Christian RN) Med Hx Psychiatric Disorders: No (01/31/2016 21:28:Bria Christian RN) Med Hx Hepatitis/Liver Disease: No (01/31/2016 21:28:Bria Christian RN) Med Hx Varicosities/Phlebitis: No (01/31/2016 21:28:Bria Christian RN) Med Hx Thyroid Dysfunction: No (01/31/2016 21:28:Bria Christian RN) Med Hx Trauma/Violence: No (01/31/2016 21:28:Bria Christian RN) Med Hx Blood Transfusion: No (01/31/2016 21:28:Bria Christian RN) Med Hx Pulmonary (Asthma,TB): No (01/31/2016 21:28:Bria Christian RN) Med Hx Breast: No (01/31/2016 21:28:Bria Christian RN) Med Hx OUTLET MANAGER Surgery: No (01/31/2016 21:28:Bria Christian RN) Med Hx Hospitalization/Surgery: Yes (01/31/2016 21:28:Bria Christian RN) Med Hx Anesthetic Complications: No (01/31/2016 21:28:Bria Christian RN) Med Hx Abnormal Pap Smear: Yes (01/31/2016 21:28:Bria Christian RN) Other Medical Diseases: No (01/31/2016 21:28:Bria Christian RN) Med Hx Significant Family Hx: No (01/31/2016 21:28:Bria Christian RN) Details of Med/Surg Hx: hospitalized for prior ; MRSA in 2014 (surgically removed in pubic area) (01/31/2016 21:28:Bria Christian RN) INFECTIOUS HISTORY Inf Hx Gonorrhea: No (01/31/2016 21:28:Bria Christian RN) Inf Hx Chlamydia: No (01/31/2016 21:28:Bria Christian RN) Inf Hx Syphilis: No (01/31/2016 21:28:Bria Christian RN) Inf Hx HIV/AIDS: No (01/31/2016 21:28:Bria Christian RN) Inf Hx Human Papilloma Virus: No (01/31/2016 21:28:Bria Christian RN) Inf Hx Pt/Partner Genital Herpes: No (01/31/2016 21:28:Bria Christian RN) Inf Hx Tuberculosis/Exposure: No (01/31/2016 21:28:Bria Christian RN) Inf Hx Hepatitis B,C: No (01/31/2016 21:28:Bria Christian RN) Inf Hx Rash or Viral Illness: No (01/31/2016 21:28:Bria Christian RN) GENETIC HISTORY Gen Hx Age >=35 at RK: Yes (01/31/2016 21:28:Bria Christian RN) Gen Hx Thalassemia: No (01/31/2016 21:28:Bria Christian RN) Gen Hx Congenital Heart Defect: No (01/31/2016 21:28:Bria Christian RN) Gen Hx Neural Tube Defect: No (01/31/2016 21:28:Bria Christian RN) Gen Hx Down's Syndrome: No (01/31/2016 21:28:Bria Christian RN) Gen Hx Allan-Sachs: No (01/31/2016 21:28:Bria Christian RN) Gen Hx Elio: No (01/31/2016 21:28:Bria Christian RN) Gen Hx Familial Dysautonomia: No (01/31/2016 21:28:Bria Christian RN) Gen Hx Sickle Cell Disease/Trait: Yes (01/31/2016 21:28:Bria Christian RN) Gen Hx Hemophilia/Blood Disorder: No (01/31/2016 21:28:Bria Christian RN) Gen Hx Muscular Dystrophy: No (01/31/2016 21:28:Bria Christian RN) Gen Hx Cystic Fibrosis: No (01/31/2016 21:28:Bria Christian RN) Gen Hx [place] Chorea: No (01/31/2016 21:28:Bria Christian RN) Gen Hx Mental Retardation/Autism: No (01/31/2016 21:28:Bria Christian RN) Gen Hx Tested for Fragile X: No (01/31/2016 21:28:Bria Christian RN) Gen Hx Other Inher/Chromosomal: No (01/31/2016 21:28:Bria Christian RN) Gen Hx Maternal Metabolic DO: Yes (01/31/2016 21:28:Bria Christian RN) Gen Hx Pt Father or FOB Defect: No (01/31/2016 21:28:Bria Christian RN) Gen Hx Other Genetic History: No (01/31/2016 21:28:Bria Christian RN) Gen Hx Drugs/Meds since LMP: Yes (01/31/2016 21:28:Bria Christian RN) Gen Hx Medications: PNV; antacids (01/31/2016 21:28:Bria Christian RN) Details of Genetic History: RANDELL is 42 years old; FOB has sickle cell trait and all three children carry trait; FOB has cousins that from sickle cell; mom's father from type I diabetes (01/31/2016 21:28:Bria Christian RN)
--- NOTE | 2016-03-30 06:11 | L&D Current Admission ---
Current Admit Datetime Report Generated by CPN: 03/30/2016 06:00 ADMISSION INFORMATION Chief Complaint: Decreased Movement (02/15/2016 17:53:Ade Brewster RN)
--- NOTE | 2016-03-30 06:11 | L&D General Admission ---
General Admit Datetime Report Generated by CPN: 03/30/2016 06:00 INFORMATION Patient Age: 30 (01/31/2016 21:05:QS system process) EDC: 03/30/2016 00:00 (01/31/2016 21:28:Bria Christian RN) EDC per Ultrasound: 03/30/2016 00:00 (01/31/2016 21:28:Bria Christian RN) LMP: 06/14/2015 00:00 (01/31/2016 21:28:Bria Christian RN) : 4 (01/31/2016 21:28:Bria Christian RN) Para: 3 (01/31/2016 21:28:Bria Christian RN) Term: 3 (01/31/2016 21:28:Bria Christian RN) : 0 (01/31/2016 21:28:Bria Christian RN) Spontaneous Abortions: 0 (01/31/2016 21:28:Bria Christian RN) Induced Abortions: 0 (01/31/2016 21:28:Bria Christian RN) Livin (01/31/2016 21:28:Bria Christian RN) Cesareans: 3 (01/31/2016 21:28:Bria Christian RN) VBACs: 0 (01/31/2016 21:28:Bria Christian RN) Ectopic: 0 (01/31/2016 21:28:Bria Christian RN) Multiple Births: 0 (01/31/2016 21:28:Bria Christian RN) Baby, Number in Womb: 1 (01/31/2016 21:28:Bria Christian RN) CARE Primary Manager Php: Other-Annotate (01/31/2016 21:28:Bria Christian RN) Manager Php Other: [facility] (01/31/2016 21:28:Bria Christian RN) Month of 1st Visit: July (01/31/2016 21:28:Bria Christian RN) Adequate Care: Yes (01/31/2016 21:28:Bria Christian RN) Height (in): 65 (01/31/2016 21:23:QS system process) ALLERGIES Medication Allergy: No (01/31/2016 21:28:Bria Ring, RN) Medication Allergies: No Known Allergies (03/20/2016) (03/25/2016 07:42:QS system process) Latex Allergy: No Latex Allergies (01/31/2016 21:28:Bria Ring, RN) Food Allergies: None (01/31/2016 21:28:Bria Ring, RN) Environmental Allergies: None (01/31/2016 21:28:Bria Ring, RN) COMMUNICATION Primary Language: Malay (01/31/2016 21:28:Bria Ring, RN) Medical Tx Preferred Language: Malay (01/31/2016 21:28:Bria Ring, RN) DEMOGRAPHICS Address: [address] [place] [address] (03/25/2016 07:42:QS system process) Zipcode: [id number] (01/31/2016 21:05:QS system process) Home (01/31/2016 21:05:QS system process) Work (01/31/2016 21:05:QS system process) SSN: [id number] (01/31/2016 21:05:QS system process) Next of Kin Name: ANJALI TEE (01/31/2016 21:05:QS system process) Next of Kin (01/31/2016 21:05:QS system process) Next of Kin Relationship: SPO (01/31/2016 21:05:QS system process) Date of : 1985 (01/31/2016 21:05:QS system process) Marital Status: (01/31/2016 21:05:QS system process) Sex: Female (01/31/2016 21:05:QS system process) Race: (01/31/2016 21:05:QS system process) Ethnicity: Non- or (01/31/2016 21:05:QS system process) Confucianist: Congregation (01/31/2016 21:05:QS system process) DRUG AND ALCOHOL USE Alcohol: No (01/31/2016 21:28:Bria Christian RN) Cigarettes: Former Smoker. [id number] (01/31/2016 21:28:Bria Christian RN) Marijuana: No (01/31/2016 21:28:Bria Christian RN) Cocaine: No (01/31/2016 21:28:Bria Christian RN) Other Illicit Drugs: No (01/31/2016 21:28:Bria Christian RN) VACCINE HISTORY Influenza Vaccine: No (01/31/2016 21:28:Bria Christian RN) Pneumococcal Vaccine: No (01/31/2016 21:28:Bria Christian RN) Tetanus Vaccine: Yes (01/31/2016 21:28:Bria Christian RN) Tdap Vaccine: Yes (01/31/2016 21:28:Bria Christian RN) Tdap Date: 2015 (01/31/2016 21:28:Bria Christian RN) Hepatitis B Vaccine: Yes (01/31/2016 21:28:Bria Christian RN) Feeding Preference: Breast (01/31/2016 21:28:Bria Christian RN) Benefit of Breast Feed Discussed: Yes (01/31/2016 21:28:Bria Christian RN) Circumcision: N/A (01/31/2016 21:28:Bria Christian RN) Classes Attended: No (01/31/2016 21:28:Bria Christian RN) Tubal Ligation: Yes (01/31/2016 21:28:Bria Christian RN) Consent: N/A (01/31/2016 21:28:Bria Christian RN) Consent Signed: N/A (01/31/2016 21:28:Bria Christian RN) Pain Management Plans: Spinal (01/31/2016 21:28:Bria Christian RN) Support Person: Anjali Tee (01/31/2016 21:28:Bria Christian RN) Support Person Relationship: (01/31/2016 21:28:Bria Christian RN) Cultural/Spritual Practice: No (01/31/2016 21:28:Bria Christian RN) Spir/Cult Dietary Needs: No (01/31/2016 21:28:Bria Christian RN) LIVING SITUATION/DISCHARGE PLAN Living Arrangements: House (01/31/2016 21:28:Bria Christian RN) Adequate Access to:: Electric; Heat; Refrigeration; Plumbing/Running water; Phone; Transportation (01/31/2016 21:28:Bria Christian RN) WIC Program: Yes (01/31/2016 21:28:Bria Christian RN) Discharge Data Analytics Developer Person: Anjali (01/31/2016 21:28:Bria Christian RN) Person to Help after Discharge: Anjali (01/31/2016 21:28:Bria Christian RN) Currently Using Commun Resources: Yes (01/31/2016 21:28:Bria Christian RN) Specify Current Resource Used: Medicaid and foodstamps (01/31/2016 21:28:Bria Christian RN) Outside Agency/Product/Device Technologist: N/A (01/31/2016 21:28:Bria Christian RN) Car Seat for Discharge: Yes (01/31/2016 21:28:Bria Christian RN) Adoption Requested: No (01/31/2016 21:28:Bria Christian RN) Pt Contact w/infant Post : N/A (01/31/2016 21:28:Bria Ring, RN) LABS Blood Type: O Positive (01/31/2016 21:28:Bria hCristian RN) Antibody Screen: Negative (01/31/2016 21:28:Bria Christian RN) Hemoglobin: 10.1 L (03/26/2016 07:30:QS system process) Hematocrit: 29.8 L (03/26/2016 07:30:QS system process) MCV: 77 L (03/26/2016 07:30:QS system process) HIV Results: NEGATIVE (01/31/2016 22:01:QS system process) Rubella: POSITIVE NEGATIVE IF LESS THAN OR EQUAL TO 9.99 IU/mL POSITIVE IF GREATER THAN OR EQUAL TO 10.0 IU/mL (01/31/2016 22:01:QS system process) Rubella Titer: 23.60 (01/31/2016 22:01:QS system process) OB/PREVIOUS HISTORY LMP: 06/14/2015 00:00 (01/31/2016 21:28:Bria Christian RN) Previous Procedures: Ultrasound (01/31/2016 21:28:Bria Christian RN) Current Procedures: Ultrasound (01/31/2016 21:28:Bria Christian RN) History of Previous : Yes (01/31/2016 21:28:Bria Christian RN) History of Gestational Diabetes: No (01/31/2016 21:28:Bria Christian RN) History of PIH: No (01/31/2016 21:28:Bria Christian RN) History of Incompetent Cervix: No (01/31/2016 21:28:Bria Christian RN) History of Placenta Previa/Abrup: No (01/31/2016 21:28:Bria Christian RN) History of Macrosomia: Yes (01/31/2016 21:28:Bria Christian RN) History of IUGR: No (01/31/2016 21:28:Bria Christian RN) History of Hemorrhage: No (01/31/2016 21:28:Bria Christian RN) History of Loss/Stillborn: No (01/31/2016 21:28:Bria Christian RN) History of : No (01/31/2016 21:28:Bria Christian RN) History of D (Rh) Sensitization: No (01/31/2016 21:28:Bria Christian RN) History Recurrent Loss/Stillborn: No (01/31/2016 21:28:Bria Christian RN) History Depression/PP Depression: No (01/31/2016 21:28:Bria Christian RN) History of Uterine Anomaly/SUHAS: No (01/31/2016 21:28:Bria Christian RN) History of Infertility: No (01/31/2016 21:28:Bria Christian RN) History of ART Treatment: No (01/31/2016 21:28:Bria Christian RN) History of SUHAS: No (01/31/2016 21:28:Bria Christian RN) Comments Obstetrical History: G1: 2004; for breech presentation (42 weeks; baby turned during induction); boy 9#10 oz G2: 2006; repeat ; boy 8# 12 oz G3: 2012; repeat ; girl 10#15 oz (01/31/2016 21:28:Bria Christian RN) MEDICAL HISTORY Med Hx Diabetes: No (01/31/2016 21:28:Bria Christian RN) Med Hx Hypertension: No (01/31/2016 21:28:Bria Christian RN) Med Hx Heart Disease: No (01/31/2016 21:28:Bria Christian RN) Med Hx Autoimmune Disorder: No (01/31/2016 21:28:Bria Christian RN) Med Hx Kidney Disease/UTI: No (01/31/2016 21:28:Bria Christian RN) Med Hx Neurologic/Epilepsy: No (01/31/2016 21:28:Bria Christian RN) Med Hx Psychiatric Disorders: No (01/31/2016 21:28:Bria Christian RN) Med Hx Hepatitis/Liver Disease: No (01/31/2016 21:28:Bria Christian RN) Med Hx Varicosities/Phlebitis: No (01/31/2016 21:28:Bria Christian RN) Med Hx Thyroid Dysfunction: No (01/31/2016 21:28:Bria Christian RN) Med Hx Trauma/Violence: No (01/31/2016 21:28:Bria Christian RN) Med Hx Blood Transfusion: No (01/31/2016 21:28:Bria Christian RN) Med Hx Pulmonary (Asthma,TB): No (01/31/2016 21:28:Bria Christian RN) Med Hx Breast: No (01/31/2016 21:28:Bria Christian RN) Med Hx INSURANCE PRODUCER Surgery: No (01/31/2016 21:28:Bria Christian RN) Med Hx Hospitalization/Surgery: Yes (01/31/2016 21:28:Bria Christian RN) Med Hx Anesthetic Complications: No (01/31/2016 21:28:Bria Christian RN) Med Hx Abnormal Pap Smear: Yes (01/31/2016 21:28:Bria Christian RN) Other Medical Diseases: No (01/31/2016 21:28:Bria Christian RN) Med Hx Significant Family Hx: No (01/31/2016 21:28:Bria Christian RN) Details of Med/Surg Hx: hospitalized for prior ; MRSA in 2014 (surgically removed in pubic area) (01/31/2016 21:28:Bria Christian RN) INFECTIOUS HISTORY Inf Hx Gonorrhea: No (01/31/2016 21:28:Bria Christian RN) Inf Hx Chlamydia: No (01/31/2016 21:28:Bria Christian RN) Inf Hx Syphilis: No (01/31/2016 21:28:Bria Christian RN) Inf Hx HIV/AIDS: No (01/31/2016 21:28:Bria Christian RN) Inf Hx Human Papilloma Virus: No (01/31/2016 21:28:Bria Christian RN) Inf Hx Pt/Partner Genital Herpes: No (01/31/2016 21:28:Bria Christian RN) Inf Hx Tuberculosis/Exposure: No (01/31/2016 21:28:Bria Christian RN) Inf Hx Hepatitis B,C: No (01/31/2016 21:28:Bria Christian RN) Inf Hx Rash or Viral Illness: No (01/31/2016 21:28:Bria Christian RN) GENETIC HISTORY Gen Hx Age >=35 at RK: Yes (01/31/2016 21:28:Bria Christian RN) Gen Hx Thalassemia: No (01/31/2016 21:28:Bria Christian RN) Gen Hx Congenital Heart Defect: No (01/31/2016 21:28:Bria Christian RN) Gen Hx Neural Tube Defect: No (01/31/2016 21:28:Bria Christian RN) Gen Hx Down's Syndrome: No (01/31/2016 21:28:Bria Christian RN) Gen Hx Allan-Sachs: No (01/31/2016 21:28:Bria Christian RN) Gen Hx Elio: No (01/31/2016 21:28:Bria Christian RN) Gen Hx Familial Dysautonomia: No (01/31/2016 21:28:Bria Christian RN) Gen Hx Sickle Cell Disease/Trait: Yes (01/31/2016 21:28:Bria Christian RN) Gen Hx Hemophilia/Blood Disorder: No (01/31/2016 21:28:Bria Christian RN) Gen Hx Muscular Dystrophy: No (01/31/2016 21:28:Bria Christian RN) Gen Hx Cystic Fibrosis: No (01/31/2016 21:28:Bria Christian RN) Gen Hx [place] Chorea: No (01/31/2016 21:28:Bria Christian RN) Gen Hx Mental Retardation/Autism: No (01/31/2016 21:28:Bria Christian RN) Gen Hx Tested for Fragile X: No (01/31/2016 21:28:Bria Christian RN) Gen Hx Other Inher/Chromosomal: No (01/31/2016 21:28:Bria Christian RN) Gen Hx Maternal Metabolic DO: Yes (01/31/2016 21:28:Bria Christian RN) Gen Hx Pt Father or FOB Defect: No (01/31/2016 21:28:Bria Christian RN) Gen Hx Other Genetic History: No (01/31/2016 21:28:Bria Christian RN) Gen Hx Drugs/Meds since LMP: Yes (01/31/2016 21:28:Bria Christian RN) Gen Hx Medications: PNV; antacids (01/31/2016 21:28:Bria Christian RN) Details of Genetic History: RANDELL is 42 years old; FOB has sickle cell trait and all three children carry trait; FOB has cousins that from sickle cell; mom's father from type I diabetes (01/31/2016 21:28:Bria Christian RN)
--- NOTE | 2016-03-31 06:12 | L&D General Admission ---
General Admit Datetime Report Generated by CPN: 03/31/2016 06:00 INFORMATION Patient Age: 30 (01/31/2016 21:05:QS system process) EDC: 03/30/2016 00:00 (01/31/2016 21:28:Bria Christian RN) EDC per Ultrasound: 03/30/2016 00:00 (01/31/2016 21:28:Bria Christian RN) LMP: 06/14/2015 00:00 (01/31/2016 21:28:Bria Christian RN) : 4 (01/31/2016 21:28:Bria Christian RN) Para: 3 (01/31/2016 21:28:Bria Christian RN) Term: 3 (01/31/2016 21:28:Bria Chrsitian RN) : 0 (01/31/2016 21:28:Bria Christian RN) Spontaneous Abortions: 0 (01/31/2016 21:28:Bria Christian RN) Induced Abortions: 0 (01/31/2016 21:28:Bria Christian RN) Livin (01/31/2016 21:28:Bria Christian RN) Cesareans: 3 (01/31/2016 21:28:Bria Christian RN) VBACs: 0 (01/31/2016 21:28:Bria Christian RN) Ectopic: 0 (01/31/2016 21:28:Bria Christian RN) Multiple Births: 0 (01/31/2016 21:28:Bria Christian RN) Baby, Number in Womb: 1 (01/31/2016 21:28:Bria Christian RN) CARE Primary Machinist Bench: Other-Annotate (01/31/2016 21:28:Bria Christian RN) Machinist Bench [facility] (01/31/2016 21:28:Bria Christian RN) Month of 1st Visit: July (01/31/2016 21:28:Bria Christian RN) Adequate Care: Yes (01/31/2016 21:28:Bria Christian RN) Height (in): 65 (01/31/2016 21:23:QS system process) ALLERGIES Medication Allergy: No (01/31/2016 21:28:Bria Ring, RN) Medication Allergies: No Known Allergies (03/20/2016) (03/25/2016 07:42:QS system process) Latex Allergy: No Latex Allergies (01/31/2016 21:28:Bria Ring, RN) Food Allergies: None (01/31/2016 21:28:Bria Ring, RN) Environmental Allergies: None (01/31/2016 21:28:Bria Ring, RN) COMMUNICATION Primary Language: Slovenian (01/31/2016 21:28:Bria Ring, RN) Medical Tx Preferred Language: Slovenian (01/31/2016 21:28:Bria Ring, RN) DEMOGRAPHICS Address: [address] [place] [id number] (03/25/2016 07:42:QS system process) Zipcode: [address] (01/31/2016 21:05:QS system process) Home (01/31/2016 21:05:QS system process) Work (01/31/2016 21:05:QS system process) SSN: [id number] (01/31/2016 21:05:QS system process) Next of Kin Name: ANJALI TEE (01/31/2016 21:05:QS system process) Next of Kin (01/31/2016 21:05:QS system process) Next of Kin Relationship: SPO (01/31/2016 21:05:QS system process) Date of : 1985 (01/31/2016 21:05:QS system process) Marital Status: (01/31/2016 21:05:QS system process) Sex: Female (01/31/2016 21:05:QS system process) Race: (01/31/2016 21:05:QS system process) Ethnicity: Non- or (01/31/2016 21:05:QS system process) Confucianism: Confucianism (01/31/2016 21:05:QS system process) DRUG AND ALCOHOL USE Alcohol: No (01/31/2016 21:28:Bria Christian RN) Cigarettes: Former Smoker. [id number] (01/31/2016 21:28:Bria Christian RN) Marijuana: No (01/31/2016 21:28:Bria Christian RN) Cocaine: No (01/31/2016 21:28:Bria Christian RN) Other Illicit Drugs: No (01/31/2016 21:28:Bria Christian RN) VACCINE HISTORY Influenza Vaccine: No (01/31/2016 21:28:Bria Christian RN) Pneumococcal Vaccine: No (01/31/2016 21:28:Bria Christian RN) Tetanus Vaccine: Yes (01/31/2016 21:28:Bria Christian RN) Tdap Vaccine: Yes (01/31/2016 21:28:Bria Christian RN) Tdap Date: 2015 (01/31/2016 21:28:Bria Christian RN) Hepatitis B Vaccine: Yes (01/31/2016 21:28:Bria Christian RN) Feeding Preference: Breast (01/31/2016 21:28:Bria Christian RN) Benefit of Breast Feed Discussed: Yes (01/31/2016 21:28:Bria Christian RN) Circumcision: N/A (01/31/2016 21:28:Bria Christian RN) Classes Attended: No (01/31/2016 21:28:Bria Christian RN) Tubal Ligation: Yes (01/31/2016 21:28:Bria Christian RN) Consent: N/A (01/31/2016 21:28:Bria Christian RN) Consent Signed: N/A (01/31/2016 21:28:Bria Christian RN) Pain Management Plans: Spinal (01/31/2016 21:28:Bria Christian RN) Support Person: Anjali Tee (01/31/2016 21:28:Bria Christian RN) Support Person Relationship: (01/31/2016 21:28:Bria Christian RN) Cultural/Spritual Practice: No (01/31/2016 21:28:Bria Christian RN) Spir/Cult Dietary Needs: No (01/31/2016 21:28:Bria Christian RN) LIVING SITUATION/DISCHARGE PLAN Living Arrangements: House (01/31/2016 21:28:Bria Christian RN) Adequate Access to:: Electric; Heat; Refrigeration; Plumbing/Running water; Phone; Transportation (01/31/2016 21:28:Bria Christian RN) WIC Program: Yes (01/31/2016 21:28:Bria Christian RN) Discharge Cable Installer Repairer Person: Anjali (01/31/2016 21:28:Bria Christian RN) Person to Help after Discharge: Anjali (01/31/2016 21:28:Bria Christian RN) Currently Using Commun Resources: Yes (01/31/2016 21:28:Bria Christian RN) Specify Current Resource Used: Medicaid and foodstamps (01/31/2016 21:28:Bria Christian RN) Outside Agency/Livestock Commission Agent: N/A (01/31/2016 21:28:Bria Christian RN) Car Seat for Discharge: Yes (01/31/2016 21:28:Bria Christian RN) Adoption Requested: No (01/31/2016 21:28:Bria Christian RN) Pt Contact w/infant Post : N/A (01/31/2016 21:28:Bria Ring, RN) LABS Blood Type: O Positive (01/31/2016 21:28:Bria Christian RN) Antibody Screen: Negative (01/31/2016 21:28:Bria Christian RN) Hemoglobin: 10.1 L (03/26/2016 07:30:QS system process) Hematocrit: 29.8 L (03/26/2016 07:30:QS system process) MCV: 77 L (03/26/2016 07:30:QS system process) HIV Results: NEGATIVE (01/31/2016 22:01:QS system process) Rubella: POSITIVE NEGATIVE IF LESS THAN OR EQUAL TO 9.99 IU/mL POSITIVE IF GREATER THAN OR EQUAL TO 10.0 IU/mL (01/31/2016 22:01:QS system process) Rubella Titer: 23.60 (01/31/2016 22:01:QS system process) OB/PREVIOUS HISTORY LMP: 06/14/2015 00:00 (01/31/2016 21:28:Bria Christian RN) Previous Procedures: Ultrasound (01/31/2016 21:28:Bria Christian RN) Current Procedures: Ultrasound (01/31/2016 21:28:Bria Christian RN) History of Previous : Yes (01/31/2016 21:28:Bria Christian RN) History of Gestational Diabetes: No (01/31/2016 21:28:Bria Christian RN) History of PIH: No (01/31/2016 21:28:Bria Christian RN) History of Incompetent Cervix: No (01/31/2016 21:28:Bria Christian RN) History of Placenta Previa/Abrup: No (01/31/2016 21:28:Bria Christian RN) History of Macrosomia: Yes (01/31/2016 21:28:Bria Christian RN) History of IUGR: No (01/31/2016 21:28:Bria Christian RN) History of Hemorrhage: No (01/31/2016 21:28:Bria Christian RN) History of Loss/Stillborn: No (01/31/2016 21:28:Bria Christian RN) History of : No (01/31/2016 21:28:Bria Christian RN) History of D (Rh) Sensitization: No (01/31/2016 21:28:Bria Christian RN) History Recurrent Loss/Stillborn: No (01/31/2016 21:28:Bria Christian RN) History Depression/PP Depression: No (01/31/2016 21:28:Bria Christian RN) History of Uterine Anomaly/SUHAS: No (01/31/2016 21:28:Bria Christian RN) History of Infertility: No (01/31/2016 21:28:Bria Christian RN) History of ART Treatment: No (01/31/2016 21:28:Bria Christian RN) History of SUHAS: No (01/31/2016 21:28:Bria Christian RN) Comments Obstetrical History: G1: 2004; for breech presentation (42 weeks; baby turned during induction); boy 9#10 oz G2: 2006; repeat ; boy 8# 12 oz G3: 2012; repeat ; girl 10#15 oz (01/31/2016 21:28:Bria Christian RN) MEDICAL HISTORY Med Hx Diabetes: No (01/31/2016 21:28:Bria Christian RN) Med Hx Hypertension: No (01/31/2016 21:28:Bria Christian RN) Med Hx Heart Disease: No (01/31/2016 21:28:Bria Christian RN) Med Hx Autoimmune Disorder: No (01/31/2016 21:28:Bria Christian RN) Med Hx Kidney Disease/UTI: No (01/31/2016 21:28:Bria Christian RN) Med Hx Neurologic/Epilepsy: No (01/31/2016 21:28:Bria Christian RN) Med Hx Psychiatric Disorders: No (01/31/2016 21:28:Bria Christian RN) Med Hx Hepatitis/Liver Disease: No (01/31/2016 21:28:Bria Christian RN) Med Hx Varicosities/Phlebitis: No (01/31/2016 21:28:Bria Christian RN) Med Hx Thyroid Dysfunction: No (01/31/2016 21:28:Bria Christian RN) Med Hx Trauma/Violence: No (01/31/2016 21:28:Bria Christian RN) Med Hx Blood Transfusion: No (01/31/2016 21:28:Bria Christian RN) Med Hx Pulmonary (Asthma,TB): No (01/31/2016 21:28:Bria Christian RN) Med Hx Breast: No (01/31/2016 21:28:Bria Christian RN) Med Hx TOOL DESIGN ENGINEER Surgery: No (01/31/2016 21:28:Bria Christian RN) Med Hx Hospitalization/Surgery: Yes (01/31/2016 21:28:Bria Christian RN) Med Hx Anesthetic Complications: No (01/31/2016 21:28:Bria Christian RN) Med Hx Abnormal Pap Smear: Yes (01/31/2016 21:28:Bria Christian RN) Other Medical Diseases: No (01/31/2016 21:28:Bria Christian RN) Med Hx Significant Family Hx: No (01/31/2016 21:28:Bria Christian RN) Details of Med/Surg Hx: hospitalized for prior ; MRSA in 2014 (surgically removed in pubic area) (01/31/2016 21:28:Bria Christian RN) INFECTIOUS HISTORY Inf Hx Gonorrhea: No (01/31/2016 21:28:Bria Christian RN) Inf Hx Chlamydia: No (01/31/2016 21:28:Bria Christian RN) Inf Hx Syphilis: No (01/31/2016 21:28:Bria Christian RN) Inf Hx HIV/AIDS: No (01/31/2016 21:28:Bria Christian RN) Inf Hx Human Papilloma Virus: No (01/31/2016 21:28:Bria Christian RN) Inf Hx Pt/Partner Genital Herpes: No (01/31/2016 21:28:Bria Christian RN) Inf Hx Tuberculosis/Exposure: No (01/31/2016 21:28:Bria Christian RN) Inf Hx Hepatitis B,C: No (01/31/2016 21:28:Bria Christian RN) Inf Hx Rash or Viral Illness: No (01/31/2016 21:28:Bria Christian RN) GENETIC HISTORY Gen Hx Age >=35 at RK: Yes (01/31/2016 21:28:Bria Christian RN) Gen Hx Thalassemia: No (01/31/2016 21:28:Bria Christian RN) Gen Hx Congenital Heart Defect: No (01/31/2016 21:28:Bria Christian RN) Gen Hx Neural Tube Defect: No (01/31/2016 21:28:Bria Christian RN) Gen Hx Down's Syndrome: No (01/31/2016 21:28:Bria Christian RN) Gen Hx Allan-Sachs: No (01/31/2016 21:28:Bria Christian RN) Gen Hx Elio: No (01/31/2016 21:28:Bria Christian RN) Gen Hx Familial Dysautonomia: No (01/31/2016 21:28:Bria Christian RN) Gen Hx Sickle Cell Disease/Trait: Yes (01/31/2016 21:28:Bria Christian RN) Gen Hx Hemophilia/Blood Disorder: No (01/31/2016 21:28:Bria Christian RN) Gen Hx Muscular Dystrophy: No (01/31/2016 21:28:Bria Christian RN) Gen Hx Cystic Fibrosis: No (01/31/2016 21:28:Bria Christian RN) Gen Hx [place] Chorea: No (01/31/2016 21:28:Bria Christian RN) Gen Hx Mental Retardation/Autism: No (01/31/2016 21:28:Bria Christian RN) Gen Hx Tested for Fragile X: No (01/31/2016 21:28:Bria Christian RN) Gen Hx Other Inher/Chromosomal: No (01/31/2016 21:28:Bria Christian RN) Gen Hx Maternal Metabolic DO: Yes (01/31/2016 21:28:Bria Christian RN) Gen Hx Pt Father or FOB Defect: No (01/31/2016 21:28:Bria Christian RN) Gen Hx Other Genetic History: No (01/31/2016 21:28:Bria Christian RN) Gen Hx Drugs/Meds since LMP: Yes (01/31/2016 21:28:Bria Christian RN) Gen Hx Medications: PNV; antacids (01/31/2016 21:28:Bria Christian RN) Details of Genetic History: RANDELL is 44 years old; FOB has sickle cell trait and all three children carry trait; FOB has cousins that from sickle cell; mom's father from type I diabetes (01/31/2016 21:28:Bria Christian RN)
--- NOTE | 2016-03-31 06:12 | L&D Current Admission ---
Current Admit Datetime Report Generated by CPN: 03/31/2016 06:00 ADMISSION INFORMATION Chief Complaint: Decreased Movement (02/15/2016 17:53:Ade Brewster RN)
--- NOTE | 2016-04-01 06:12 | L&D General Admission ---
General Admit Datetime Report Generated by CPN: 04/01/2016 06:00 INFORMATION Patient Age: 30 (01/31/2016 21:05:QS system process) EDC: 03/30/2016 00:00 (01/31/2016 21:28:Bria Christian RN) EDC per Ultrasound: 03/30/2016 00:00 (01/31/2016 21:28:Bria Christian RN) LMP: 06/14/2015 00:00 (01/31/2016 21:28:Bria Christian RN) : 4 (01/31/2016 21:28:Bria Christian RN) Para: 3 (01/31/2016 21:28:Bria Christian RN) Term: 3 (01/31/2016 21:28:Bria Christian RN) : 0 (01/31/2016 21:28:Bria Christian RN) Spontaneous Abortions: 0 (01/31/2016 21:28:Bria Christian RN) Induced Abortions: 0 (01/31/2016 21:28:Bria Christian RN) Livin (01/31/2016 21:28:Bria Christian RN) Cesareans: 3 (01/31/2016 21:28:Bria Christian RN) VBACs: 0 (01/31/2016 21:28:Bria Christian RN) Ectopic: 0 (01/31/2016 21:28:Bria Christian RN) Multiple Births: 0 (01/31/2016 21:28:Bria Christian RN) Baby, Number in Womb: 1 (01/31/2016 21:28:Bria Christian RN) CARE Primary Lieutenant General: Other-Annotate (01/31/2016 21:28:Bria Christian RN) Lieutenant General [facility]: [facility] (01/31/2016 21:28:Bria Christian RN) Month of 1st Visit: July (01/31/2016 21:28:Bria Christian RN) Adequate Care: Yes (01/31/2016 21:28:Bria Christian RN) Height (in): 65 (01/31/2016 21:23:QS system process) ALLERGIES Medication Allergy: No (01/31/2016 21:28:Bria Ring, RN) Medication Allergies: No Known Allergies (03/20/2016) (03/25/2016 07:42:QS system process) Latex Allergy: No Latex Allergies (01/31/2016 21:28:Bria Ring, RN) Food Allergies: None (01/31/2016 21:28:Bria Ring, RN) Environmental Allergies: None (01/31/2016 21:28:Bria Ring, RN) COMMUNICATION Primary Language: Malay (01/31/2016 21:28:Bria Ring, RN) Medical Tx Preferred Language: Malay (01/31/2016 21:28:Bria Ring, RN) DEMOGRAPHICS Address: [address] [place] [id number] (03/25/2016 07:42:QS system process) Zipcode: [id number] (01/31/2016 21:05:QS system process) Home (01/31/2016 21:05:QS system process) Work (01/31/2016 21:05:QS system process) SSN: [id number] (01/31/2016 21:05:QS system process) Next of Kin Name: ANJALI TEE (01/31/2016 21:05:QS system process) Next of Kin (01/31/2016 21:05:QS system process) Next of Kin Relationship: SPO (01/31/2016 21:05:QS system process) Date of : 1985 (01/31/2016 21:05:QS system process) Marital Status: (01/31/2016 21:05:QS system process) Sex: Female (01/31/2016 21:05:QS system process) Race: (01/31/2016 21:05:QS system process) Ethnicity: Non- or (01/31/2016 21:05:QS system process) Presybeterian: Hoahaoism (01/31/2016 21:05:QS system process) DRUG AND ALCOHOL USE Alcohol: No (01/31/2016 21:28:Bria Christian RN) Cigarettes: Former Smoker. [id number] (01/31/2016 21:28:Bria Christian RN) Marijuana: No (01/31/2016 21:28:Bria Christian RN) Cocaine: No (01/31/2016 21:28:Bria Christian RN) Other Illicit Drugs: No (01/31/2016 21:28:Bria Christian RN) VACCINE HISTORY Influenza Vaccine: No (01/31/2016 21:28:Bria Christian RN) Pneumococcal Vaccine: No (01/31/2016 21:28:Bria Christian RN) Tetanus Vaccine: Yes (01/31/2016 21:28:Bria Christian RN) Tdap Vaccine: Yes (01/31/2016 21:28:Bria Christian RN) Tdap Date: 2015 (01/31/2016 21:28:Bria Christian RN) Hepatitis B Vaccine: Yes (01/31/2016 21:28:Bria Christian RN) Feeding Preference: Breast (01/31/2016 21:28:Bria Christian RN) Benefit of Breast Feed Discussed: Yes (01/31/2016 21:28:Bria Christian RN) Circumcision: N/A (01/31/2016 21:28:Bria Christian RN) Classes Attended: No (01/31/2016 21:28:Bria Christian RN) Tubal Ligation: Yes (01/31/2016 21:28:Bria Christian RN) Consent: N/A (01/31/2016 21:28:Bria Christian RN) Consent Signed: N/A (01/31/2016 21:28:Bria Christian RN) Pain Management Plans: Spinal (01/31/2016 21:28:Bria Christian RN) Support Person: Anjali Tee (01/31/2016 21:28:Bria Christian RN) Support Person Relationship: (01/31/2016 21:28:Bria Christian RN) Cultural/Spritual Practice: No (01/31/2016 21:28:Bria Christian RN) Spir/Cult Dietary Needs: No (01/31/2016 21:28:Bria Christian RN) LIVING SITUATION/DISCHARGE PLAN Living Arrangements: House (01/31/2016 21:28:Bria Christian RN) Adequate Access to:: Electric; Heat; Refrigeration; Plumbing/Running water; Phone; Transportation (01/31/2016 21:28:Bria Christian RN) WIC Program: Yes (01/31/2016 21:28:Bria Christian RN) Discharge Supervisor Plastics Person: Anjali (01/31/2016 21:28:Bria Christian RN) Person to Help after Discharge: Anjali (01/31/2016 21:28:Bria Christian RN) Currently Using Commun Resources: Yes (01/31/2016 21:28:Bria Christian RN) Specify Current Resource Used: Medicaid and foodstamps (01/31/2016 21:28:Bria Christian RN) Outside Agency/Tripe Finisher: N/A (01/31/2016 21:28:Bria Christian RN) Car Seat for Discharge: Yes (01/31/2016 21:28:Bria Christian RN) Adoption Requested: No (01/31/2016 21:28:Bria Christian RN) Pt Contact w/infant Post : N/A (01/31/2016 21:28:Bria Ring, RN) LABS Blood Type: O Positive (01/31/2016 21:28:Bria Christian RN) Antibody Screen: Negative (01/31/2016 21:28:Bria Christian RN) Hemoglobin: 10.1 L (03/26/2016 07:30:QS system process) Hematocrit: 29.8 L (03/26/2016 07:30:QS system process) MCV: 77 L (03/26/2016 07:30:QS system process) HIV Results: NEGATIVE (01/31/2016 22:01:QS system process) Rubella: POSITIVE NEGATIVE IF LESS THAN OR EQUAL TO 9.99 IU/mL POSITIVE IF GREATER THAN OR EQUAL TO 10.0 IU/mL (01/31/2016 22:01:QS system process) Rubella Titer: 23.60 (01/31/2016 22:01:QS system process) OB/PREVIOUS HISTORY LMP: 06/14/2015 00:00 (01/31/2016 21:28:Bria Christian RN) Previous Procedures: Ultrasound (01/31/2016 21:28:Bria Christian RN) Current Procedures: Ultrasound (01/31/2016 21:28:Bria Christian RN) History of Previous : Yes (01/31/2016 21:28:Bria Christian RN) History of Gestational Diabetes: No (01/31/2016 21:28:Bria Christian RN) History of PIH: No (01/31/2016 21:28:Bria Christian RN) History of Incompetent Cervix: No (01/31/2016 21:28:Bria Christian RN) History of Placenta Previa/Abrup: No (01/31/2016 21:28:Bria Christian RN) History of Macrosomia: Yes (01/31/2016 21:28:Bria Christian RN) History of IUGR: No (01/31/2016 21:28:Bria Christian RN) History of Hemorrhage: No (01/31/2016 21:28:Bria Christian RN) History of Loss/Stillborn: No (01/31/2016 21:28:Bria Christian RN) History of : No (01/31/2016 21:28:Bria Christian RN) History of D (Rh) Sensitization: No (01/31/2016 21:28:Bria Christian RN) History Recurrent Loss/Stillborn: No (01/31/2016 21:28:Bria Christian RN) History Depression/PP Depression: No (01/31/2016 21:28:Bria Christian RN) History of Uterine Anomaly/SUHAS: No (01/31/2016 21:28:Bria Christian RN) History of Infertility: No (01/31/2016 21:28:Bria Christian RN) History of ART Treatment: No (01/31/2016 21:28:Bria Christian RN) History of SUHAS: No (01/31/2016 21:28:Bria Christian RN) Comments Obstetrical History: G1: 2004; for breech presentation (42 weeks; baby turned during induction); boy 9#10 oz G2: 2006; repeat ; boy 8# 12 oz G3: 2012; repeat ; girl 10#15 oz (01/31/2016 21:28:Bria Christian RN) MEDICAL HISTORY Med Hx Diabetes: No (01/31/2016 21:28:Bria Christian RN) Med Hx Hypertension: No (01/31/2016 21:28:Bria Christian RN) Med Hx Heart Disease: No (01/31/2016 21:28:Bria Christian RN) Med Hx Autoimmune Disorder: No (01/31/2016 21:28:Bria Christian RN) Med Hx Kidney Disease/UTI: No (01/31/2016 21:28:Bria Christian RN) Med Hx Neurologic/Epilepsy: No (01/31/2016 21:28:Bria Christian RN) Med Hx Psychiatric Disorders: No (01/31/2016 21:28:Bria Christian RN) Med Hx Hepatitis/Liver Disease: No (01/31/2016 21:28:Bria Christian RN) Med Hx Varicosities/Phlebitis: No (01/31/2016 21:28:Bria Christian RN) Med Hx Thyroid Dysfunction: No (01/31/2016 21:28:Bria Christian RN) Med Hx Trauma/Violence: No (01/31/2016 21:28:Bria Christian RN) Med Hx Blood Transfusion: No (01/31/2016 21:28:Bria Christian RN) Med Hx Pulmonary (Asthma,TB): No (01/31/2016 21:28:Bria Christian RN) Med Hx Breast: No (01/31/2016 21:28:Bria Christian RN) Med Hx SHEARER SCREEN MEASURER AND TRIMMER Surgery: No (01/31/2016 21:28:Bria Christian RN) Med Hx Hospitalization/Surgery: Yes (01/31/2016 21:28:Bria Christian RN) Med Hx Anesthetic Complications: No (01/31/2016 21:28:Bria Christian RN) Med Hx Abnormal Pap Smear: Yes (01/31/2016 21:28:Bria Christian RN) Other Medical Diseases: No (01/31/2016 21:28:Bria Christian RN) Med Hx Significant Family Hx: No (01/31/2016 21:28:Bria Christian RN) Details of Med/Surg Hx: hospitalized for prior ; MRSA in 2014 (surgically removed in pubic area) (01/31/2016 21:28:Bria Christian RN) INFECTIOUS HISTORY Inf Hx Gonorrhea: No (01/31/2016 21:28:Bria Christian RN) Inf Hx Chlamydia: No (01/31/2016 21:28:Bria Christian RN) Inf Hx Syphilis: No (01/31/2016 21:28:Bria Christian RN) Inf Hx HIV/AIDS: No (01/31/2016 21:28:Bria Christian RN) Inf Hx Human Papilloma Virus: No (01/31/2016 21:28:Bria Christian RN) Inf Hx Pt/Partner Genital Herpes: No (01/31/2016 21:28:Bria Christian RN) Inf Hx Tuberculosis/Exposure: No (01/31/2016 21:28:Bria Christian RN) Inf Hx Hepatitis B,C: No (01/31/2016 21:28:Bria Christian RN) Inf Hx Rash or Viral Illness: No (01/31/2016 21:28:Bria Christian RN) GENETIC HISTORY Gen Hx Age >=35 at RK: Yes (01/31/2016 21:28:Bria Christian RN) Gen Hx Thalassemia: No (01/31/2016 21:28:Bria Christian RN) Gen Hx Congenital Heart Defect: No (01/31/2016 21:28:Bria Christian RN) Gen Hx Neural Tube Defect: No (01/31/2016 21:28:Bria Christian RN) Gen Hx Down's Syndrome: No (01/31/2016 21:28:Bria Christian RN) Gen Hx Allan-Sachs: No (01/31/2016 21:28:Bria Christian RN) Gen Hx Elio: No (01/31/2016 21:28:Bria Christian RN) Gen Hx Familial Dysautonomia: No (01/31/2016 21:28:Bria Christian RN) Gen Hx Sickle Cell Disease/Trait: Yes (01/31/2016 21:28:Bria Christian RN) Gen Hx Hemophilia/Blood Disorder: No (01/31/2016 21:28:Bria Christian RN) Gen Hx Muscular Dystrophy: No (01/31/2016 21:28:Bria Christian RN) Gen Hx Cystic Fibrosis: No (01/31/2016 21:28:Bria Christian RN) Gen Hx [place] Chorea: No (01/31/2016 21:28:Bria Christian RN) Gen Hx Mental Retardation/Autism: No (01/31/2016 21:28:Bria Christian RN) Gen Hx Tested for Fragile X: No (01/31/2016 21:28:Bria Christian RN) Gen Hx Other Inher/Chromosomal: No (01/31/2016 21:28:Bria Christian RN) Gen Hx Maternal Metabolic DO: Yes (01/31/2016 21:28:Bria Christian RN) Gen Hx Pt Father or FOB Defect: No (01/31/2016 21:28:Bria Christian RN) Gen Hx Other Genetic History: No (01/31/2016 21:28:Bria Christian RN) Gen Hx Drugs/Meds since LMP: Yes (01/31/2016 21:28:Bria Christian RN) Gen Hx Medications: PNV; antacids (01/31/2016 21:28:Bria Christian RN) Details of Genetic History: RANDELL is 42 years old; FOB has sickle cell trait and all three children carry trait; FOB has cousins that from sickle cell; mom's father from type I diabetes (01/31/2016 21:28:Bria Christian RN)
--- NOTE | 2016-04-01 06:12 | L&D Current Admission ---
Current Admit Datetime Report Generated by CPN: 04/01/2016 06:00 ADMISSION INFORMATION Chief Complaint: Decreased Movement (02/15/2016 17:53:Ade Brewster RN)
--- NOTE | 2016-04-02 06:12 | L&D Current Admission ---
Current Admit Datetime Report Generated by CPN: 04/02/2016 06:00 ADMISSION INFORMATION Chief Complaint: Decreased Movement (02/15/2016 17:53:Ade Brewster RN)
--- NOTE | 2016-04-02 06:12 | L&D General Admission ---
General Admit Datetime Report Generated by CPN: 04/02/2016 06:00 INFORMATION Patient Age: 30 (01/31/2016 21:05:QS system process) EDC: 03/30/2016 00:00 (01/31/2016 21:28:Bria Christian RN) EDC per Ultrasound: 03/30/2016 00:00 (01/31/2016 21:28:Bria Christian RN) LMP: 06/14/2015 00:00 (01/31/2016 21:28:Bria Christian RN) : 4 (01/31/2016 21:28:Bria Christian RN) Para: 3 (01/31/2016 21:28:Bria Christian RN) Term: 3 (01/31/2016 21:28:Bria Christian RN) : 0 (01/31/2016 21:28:Bria Christian RN) Spontaneous Abortions: 0 (01/31/2016 21:28:Bria Christian RN) Induced Abortions: 0 (01/31/2016 21:28:Bria Christian RN) Livin (01/31/2016 21:28:Bria Christian RN) Cesareans: 3 (01/31/2016 21:28:Bria Christian RN) VBACs: 0 (01/31/2016 21:28:Bria Christian RN) Ectopic: 0 (01/31/2016 21:28:Bria Christian RN) Multiple Births: 0 (01/31/2016 21:28:Bria Christian RN) Baby, Number in Womb: 1 (01/31/2016 21:28:Bria Christian RN) CARE Primary Copy Clerk: Other-Annotate (01/31/2016 21:28:Bria Christian RN) Copy Clerk Other: [facility] (01/31/2016 21:28:Bria Christian RN) Month of 1st Visit: July (01/31/2016 21:28:Bria Christian RN) Adequate Care: Yes (01/31/2016 21:28:Bria Christian RN) Height (in): 65 (01/31/2016 21:23:QS system process) ALLERGIES Medication Allergy: No (01/31/2016 21:28:Bria Ring, RN) Medication Allergies: No Known Allergies (03/20/2016) (03/25/2016 07:42:QS system process) Latex Allergy: No Latex Allergies (01/31/2016 21:28:Bria Ring, RN) Food Allergies: None (01/31/2016 21:28:Bria Ring, RN) Environmental Allergies: None (01/31/2016 21:28:Bria Ring, RN) COMMUNICATION Primary Language: Upper Sorbian (01/31/2016 21:28:Bria Ring, RN) Medical Tx Preferred Language: Upper Sorbian (01/31/2016 21:28:Bria Ring, RN) DEMOGRAPHICS Address: [address] [place] [id number] (03/25/2016 07:42:QS system process) Zipcode: [id number] (01/31/2016 21:05:QS system process) Home (01/31/2016 21:05:QS system process) Work (01/31/2016 21:05:QS system process) SSN: [id number] (01/31/2016 21:05:QS system process) Next of Kin Name: ANJALI TEE (01/31/2016 21:05:QS system process) Next of Kin (01/31/2016 21:05:QS system process) Next of Kin Relationship: SPO (01/31/2016 21:05:QS system process) Date of : 1985 (01/31/2016 21:05:QS system process) Marital Status: (01/31/2016 21:05:QS system process) Sex: Female (01/31/2016 21:05:QS system process) Race: (01/31/2016 21:05:QS system process) Ethnicity: Non- or (01/31/2016 21:05:QS system process) Yazdanism: Advent (01/31/2016 21:05:QS system process) DRUG AND ALCOHOL USE Alcohol: No (01/31/2016 21:28:Bria Christian RN) Cigarettes: Former Smoker. [id number] (01/31/2016 21:28:Bria Christian RN) Marijuana: No (01/31/2016 21:28:Bria Christian RN) Cocaine: No (01/31/2016 21:28:Bria Christian RN) Other Illicit Drugs: No (01/31/2016 21:28:Bria Christian RN) VACCINE HISTORY Influenza Vaccine: No (01/31/2016 21:28:Bria Christian RN) Pneumococcal Vaccine: No (01/31/2016 21:28:Bria Christian RN) Tetanus Vaccine: Yes (01/31/2016 21:28:Bria Christian RN) Tdap Vaccine: Yes (01/31/2016 21:28:Bria Christian RN) Tdap Date: 2015 (01/31/2016 21:28:Bria Christian RN) Hepatitis B Vaccine: Yes (01/31/2016 21:28:Bria Christian RN) Feeding Preference: Breast (01/31/2016 21:28:Bria Christian RN) Benefit of Breast Feed Discussed: Yes (01/31/2016 21:28:Bria Christian RN) Circumcision: N/A (01/31/2016 21:28:Bria Christian RN) Classes Attended: No (01/31/2016 21:28:Bria Christian RN) Tubal Ligation: Yes (01/31/2016 21:28:Bria Christian RN) Consent: N/A (01/31/2016 21:28:Bria Christian RN) Consent Signed: N/A (01/31/2016 21:28:Bria Christian RN) Pain Management Plans: Spinal (01/31/2016 21:28:Bria Christian RN) Support Person: Anjali Tee (01/31/2016 21:28:Bria Christian RN) Support Person Relationship: (01/31/2016 21:28:Bria Christian RN) Cultural/Spritual Practice: No (01/31/2016 21:28:Bria Christian RN) Spir/Cult Dietary Needs: No (01/31/2016 21:28:Bria Christian RN) LIVING SITUATION/DISCHARGE PLAN Living Arrangements: House (01/31/2016 21:28:Bria Christian RN) Adequate Access to:: Electric; Heat; Refrigeration; Plumbing/Running water; Phone; Transportation (01/31/2016 21:28:Bria Christian RN) WIC Program: Yes (01/31/2016 21:28:Bria Christian RN) Discharge Donor Recruitment Manager Person: Anjali (01/31/2016 21:28:Bria Christian RN) Person to Help after Discharge: Anjali (01/31/2016 21:28:Bria Christian RN) Currently Using Commun Resources: Yes (01/31/2016 21:28:Bria Christian RN) Specify Current Resource Used: Medicaid and foodstamps (01/31/2016 21:28:Bria Christian RN) Outside Agency/Information Systems Auditor: N/A (01/31/2016 21:28:Bria Christian RN) Car Seat for Discharge: Yes (01/31/2016 21:28:Bria Christian RN) Adoption Requested: No (01/31/2016 21:28:Bria Christian RN) Pt Contact w/infant Post : N/A (01/31/2016 21:28:Bria Ring, RN) LABS Blood Type: O Positive (01/31/2016 21:28:Bria Christian RN) Antibody Screen: Negative (01/31/2016 21:28:Bria Christian RN) Hemoglobin: 10.1 L (03/26/2016 07:30:QS system process) Hematocrit: 29.8 L (03/26/2016 07:30:QS system process) MCV: 77 L (03/26/2016 07:30:QS system process) HIV Results: NEGATIVE (01/31/2016 22:01:QS system process) Rubella: POSITIVE NEGATIVE IF LESS THAN OR EQUAL TO 9.99 IU/mL POSITIVE IF GREATER THAN OR EQUAL TO 10.0 IU/mL (01/31/2016 22:01:QS system process) Rubella Titer: 23.60 (01/31/2016 22:01:QS system process) OB/PREVIOUS HISTORY LMP: 06/14/2015 00:00 (01/31/2016 21:28:Bria Christian RN) Previous Procedures: Ultrasound (01/31/2016 21:28:Bria Christian RN) Current Procedures: Ultrasound (01/31/2016 21:28:Bria Christian RN) History of Previous : Yes (01/31/2016 21:28:Bria Christian RN) History of Gestational Diabetes: No (01/31/2016 21:28:Bria Christian RN) History of PIH: No (01/31/2016 21:28:Bria Christian RN) History of Incompetent Cervix: No (01/31/2016 21:28:Bria Christian RN) History of Placenta Previa/Abrup: No (01/31/2016 21:28:Bria Christian RN) History of Macrosomia: Yes (01/31/2016 21:28:Bria Christian RN) History of IUGR: No (01/31/2016 21:28:Bria Christian RN) History of Hemorrhage: No (01/31/2016 21:28:Bria Christian RN) History of Loss/Stillborn: No (01/31/2016 21:28:Bria Christian RN) History of : No (01/31/2016 21:28:Bria Christian RN) History of D (Rh) Sensitization: No (01/31/2016 21:28:Bria Christian RN) History Recurrent Loss/Stillborn: No (01/31/2016 21:28:Bria Christian RN) History Depression/PP Depression: No (01/31/2016 21:28:Bria Christian RN) History of Uterine Anomaly/SUHAS: No (01/31/2016 21:28:Bria Christian RN) History of Infertility: No (01/31/2016 21:28:Bria Christian RN) History of ART Treatment: No (01/31/2016 21:28:Bria Christian RN) History of SUHAS: No (01/31/2016 21:28:Bria Christian RN) Comments Obstetrical History: G1: 2004; for breech presentation (42 weeks; baby turned during induction); boy 9#10 oz G2: 2006; repeat ; boy 8# 12 oz G3: 2012; repeat ; girl 10#15 oz (01/31/2016 21:28:Bria Christian RN) MEDICAL HISTORY Med Hx Diabetes: No (01/31/2016 21:28:Bria Christian RN) Med Hx Hypertension: No (01/31/2016 21:28:Bria Christian RN) Med Hx Heart Disease: No (01/31/2016 21:28:Bria Christian RN) Med Hx Autoimmune Disorder: No (01/31/2016 21:28:Bria Christian RN) Med Hx Kidney Disease/UTI: No (01/31/2016 21:28:Bria Christian RN) Med Hx Neurologic/Epilepsy: No (01/31/2016 21:28:Bria Christian RN) Med Hx Psychiatric Disorders: No (01/31/2016 21:28:Bria Christian RN) Med Hx Hepatitis/Liver Disease: No (01/31/2016 21:28:Bria Christian RN) Med Hx Varicosities/Phlebitis: No (01/31/2016 21:28:Bria Christian RN) Med Hx Thyroid Dysfunction: No (01/31/2016 21:28:Bria Christian RN) Med Hx Trauma/Violence: No (01/31/2016 21:28:Bria Christian RN) Med Hx Blood Transfusion: No (01/31/2016 21:28:Bria Christian RN) Med Hx Pulmonary (Asthma,TB): No (01/31/2016 21:28:Bria Christian RN) Med Hx Breast: No (01/31/2016 21:28:Bria Christian RN) Med Hx BAKERY MACHINE MECHANIC Surgery: No (01/31/2016 21:28:Bria Christian RN) Med Hx Hospitalization/Surgery: Yes (01/31/2016 21:28:Bria Christian RN) Med Hx Anesthetic Complications: No (01/31/2016 21:28:Bria Christian RN) Med Hx Abnormal Pap Smear: Yes (01/31/2016 21:28:Bria Christian RN) Other Medical Diseases: No (01/31/2016 21:28:Bria Christian RN) Med Hx Significant Family Hx: No (01/31/2016 21:28:Bria Christian RN) Details of Med/Surg Hx: hospitalized for prior ; MRSA in 2014 (surgically removed in pubic area) (01/31/2016 21:28:Bria Christian RN) INFECTIOUS HISTORY Inf Hx Gonorrhea: No (01/31/2016 21:28:Bria Christian RN) Inf Hx Chlamydia: No (01/31/2016 21:28:Bria Christian RN) Inf Hx Syphilis: No (01/31/2016 21:28:Bria Christian RN) Inf Hx HIV/AIDS: No (01/31/2016 21:28:Bria Christian RN) Inf Hx Human Papilloma Virus: No (01/31/2016 21:28:Bria Christian RN) Inf Hx Pt/Partner Genital Herpes: No (01/31/2016 21:28:Bria Christian RN) Inf Hx Tuberculosis/Exposure: No (01/31/2016 21:28:Bria Christian RN) Inf Hx Hepatitis B,C: No (01/31/2016 21:28:Bria Christian RN) Inf Hx Rash or Viral Illness: No (01/31/2016 21:28:Bria Christian RN) GENETIC HISTORY Gen Hx Age >=35 at RK: Yes (01/31/2016 21:28:Bria Christian RN) Gen Hx Thalassemia: No (01/31/2016 21:28:Bria Christian RN) Gen Hx Congenital Heart Defect: No (01/31/2016 21:28:Bria Christian RN) Gen Hx Neural Tube Defect: No (01/31/2016 21:28:Bria Christian RN) Gen Hx Down's Syndrome: No (01/31/2016 21:28:Bria Christian RN) Gen Hx Allan-Sachs: No (01/31/2016 21:28:Bria Christian RN) Gen Hx Elio: No (01/31/2016 21:28:Bria Christian RN) Gen Hx Familial Dysautonomia: No (01/31/2016 21:28:Bria Christian RN) Gen Hx Sickle Cell Disease/Trait: Yes (01/31/2016 21:28:Bria Christian RN) Gen Hx Hemophilia/Blood Disorder: No (01/31/2016 21:28:Bria Christian RN) Gen Hx Muscular Dystrophy: No (01/31/2016 21:28:Bria Christian RN) Gen Hx Cystic Fibrosis: No (01/31/2016 21:28:Bria Christian RN) Gen Hx [place] Chorea: No (01/31/2016 21:28:Bria Christian RN) Gen Hx Mental Retardation/Autism: No (01/31/2016 21:28:Bria Christian RN) Gen Hx Tested for Fragile X: No (01/31/2016 21:28:Bria Christian RN) Gen Hx Other Inher/Chromosomal: No (01/31/2016 21:28:Bria Christian RN) Gen Hx Maternal Metabolic DO: Yes (01/31/2016 21:28:Bria Christian RN) Gen Hx Pt Father or FOB Defect: No (01/31/2016 21:28:Bria Christian RN) Gen Hx Other Genetic History: No (01/31/2016 21:28:Bria Christian RN) Gen Hx Drugs/Meds since LMP: Yes (01/31/2016 21:28:Bria Christian RN) Gen Hx Medications: PNV; antacids (01/31/2016 21:28:Bria Christian RN) Details of Genetic History: RANDELL is 42 years old; FOB has sickle cell trait and all three children carry trait; FOB has cousins that from sickle cell; mom's father from type I diabetes (01/31/2016 21:28:Bria Christian RN)
--- NOTE | 2016-04-03 06:10 | L&D Current Admission ---
Current Admit Datetime Report Generated by CPN: 04/03/2016 06:00 ADMISSION INFORMATION Chief Complaint: Decreased Movement (02/15/2016 17:53:Ade Brewster RN)
--- NOTE | 2016-04-03 06:10 | L&D General Admission ---
General Admit Datetime Report Generated by CPN: 04/03/2016 06:00 INFORMATION Patient Age: 30 (01/31/2016 21:05:QS system process) EDC: 03/30/2016 00:00 (01/31/2016 21:28:Bria Christian RN) EDC per Ultrasound: 03/30/2016 00:00 (01/31/2016 21:28:Bria Christian RN) LMP: 06/14/2015 00:00 (01/31/2016 21:28:Bria Christian RN) : 4 (01/31/2016 21:28:Bria Christian RN) Para: 3 (01/31/2016 21:28:Bria Christian RN) Term: 3 (01/31/2016 21:28:Bria Christian RN) : 0 (01/31/2016 21:28:Bria Christian RN) Spontaneous Abortions: 0 (01/31/2016 21:28:Bria Christian RN) Induced Abortions: 0 (01/31/2016 21:28:Bria Christian RN) Livin (01/31/2016 21:28:Bria Christian RN) Cesareans: 3 (01/31/2016 21:28:Bria Christian RN) VBACs: 0 (01/31/2016 21:28:Bria Christian RN) Ectopic: 0 (01/31/2016 21:28:Bria Christian RN) Multiple Births: 0 (01/31/2016 21:28:Bria Christian RN) Baby, Number in Womb: 1 (01/31/2016 21:28:Bria Christian RN) CARE Primary Park Naturalist: Other-Annotate (01/31/2016 21:28:Bria Christian RN) Park Naturalist [facility] (01/31/2016 21:28:Bria Christian RN) Month of 1st Visit: July (01/31/2016 21:28:Bria Christian RN) Adequate Care: Yes (01/31/2016 21:28:Bria Christian RN) Height (in): 65 (01/31/2016 21:23:QS system process) ALLERGIES Medication Allergy: No (01/31/2016 21:28:Bria Ring, RN) Medication Allergies: No Known Allergies (03/20/2016) (03/25/2016 07:42:QS system process) Latex Allergy: No Latex Allergies (01/31/2016 21:28:Bria Ring, RN) Food Allergies: None (01/31/2016 21:28:Bira Ring, RN) Environmental Allergies: None (01/31/2016 21:28:Bria Ring, RN) COMMUNICATION Primary Language: Latvian (01/31/2016 21:28:Bria Ring, RN) Medical Tx Preferred Language: Latvian (01/31/2016 21:28:Bria Ring, RN) DEMOGRAPHICS Address: [address] [place] [id number] (03/25/2016 07:42:QS system process) Zipcode: [id number] (01/31/2016 21:05:QS system process) Home (01/31/2016 21:05:QS system process) Work (01/31/2016 21:05:QS system process) SSN: [id number] (01/31/2016 21:05:QS system process) Next of Kin Name: ANJALI TEE (01/31/2016 21:05:QS system process) Next of Kin (01/31/2016 21:05:QS system process) Next of Kin Relationship: SPO (01/31/2016 21:05:QS system process) Date of : 1985 (01/31/2016 21:05:QS system process) Marital Status: (01/31/2016 21:05:QS system process) Sex: Female (01/31/2016 21:05:QS system process) Race: (01/31/2016 21:05:QS system process) Ethnicity: Non- or (01/31/2016 21:05:QS system process) Taoism: Jehovah'S Witness (01/31/2016 21:05:QS system process) DRUG AND ALCOHOL USE Alcohol: No (01/31/2016 21:28:Bria Christian RN) Cigarettes: Former Smoker. [id number] (01/31/2016 21:28:Bria Christian RN) Marijuana: No (01/31/2016 21:28:Bria Christian RN) Cocaine: No (01/31/2016 21:28:Bria Christian RN) Other Illicit Drugs: No (01/31/2016 21:28:Bria Christian RN) VACCINE HISTORY Influenza Vaccine: No (01/31/2016 21:28:Bria Christian RN) Pneumococcal Vaccine: No (01/31/2016 21:28:Bria Christian RN) Tetanus Vaccine: Yes (01/31/2016 21:28:rBia Christian RN) Tdap Vaccine: Yes (01/31/2016 21:28:Bria Christian RN) Tdap Date: 2015 (01/31/2016 21:28:Bria Christian RN) Hepatitis B Vaccine: Yes (01/31/2016 21:28:Bria Christian RN) Feeding Preference: Breast (01/31/2016 21:28:Bria Christian RN) Benefit of Breast Feed Discussed: Yes (01/31/2016 21:28:Bria Christian RN) Circumcision: N/A (01/31/2016 21:28:Bria Christian RN) Classes Attended: No (01/31/2016 21:28:Bria Christian RN) Tubal Ligation: Yes (01/31/2016 21:28:Bria Christian RN) Consent: N/A (01/31/2016 21:28:Bria Christian RN) Consent Signed: N/A (01/31/2016 21:28:Bria Christian RN) Pain Management Plans: Spinal (01/31/2016 21:28:Bria Christian RN) Support Person: Anjali Tee (01/31/2016 21:28:Bria Christian RN) Support Person Relationship: (01/31/2016 21:28:Bria Christian RN) Cultural/Spritual Practice: No (01/31/2016 21:28:Bria Christian RN) Spir/Cult Dietary Needs: No (01/31/2016 21:28:Bria Christian RN) LIVING SITUATION/DISCHARGE PLAN Living Arrangements: House (01/31/2016 21:28:Bria Christian RN) Adequate Access to:: Electric; Heat; Refrigeration; Plumbing/Running water; Phone; Transportation (01/31/2016 21:28:Bria Christian RN) WIC Program: Yes (01/31/2016 21:28:Bria Christian RN) Discharge Railroad Surveyor Person: Anjali (01/31/2016 21:28:Bria Christian RN) Person to Help after Discharge: Anjali (01/31/2016 21:28:Bria Christian RN) Currently Using Commun Resources: Yes (01/31/2016 21:28:Bria Christian RN) Specify Current Resource Used: Medicaid and foodstamps (01/31/2016 21:28:Bria Christian RN) Outside Agency/[employer] Former Supervisor: N/A (01/31/2016 21:28:Bria Christian RN) Car Seat for Discharge: Yes (01/31/2016 21:28:Bria Christian RN) Adoption Requested: No (01/31/2016 21:28:Bria Christian RN) Pt Contact w/infant Post : N/A (01/31/2016 21:28:Bria Ring, RN) LABS Blood Type: O Positive (01/31/2016 21:28:Bria Christian RN) Antibody Screen: Negative (01/31/2016 21:28:Bria Christian RN) Hemoglobin: 10.1 L (03/26/2016 07:30:QS system process) Hematocrit: 29.8 L (03/26/2016 07:30:QS system process) MCV: 77 L (03/26/2016 07:30:QS system process) HIV Results: NEGATIVE (01/31/2016 22:01:QS system process) Rubella: POSITIVE NEGATIVE IF LESS THAN OR EQUAL TO 9.99 IU/mL POSITIVE IF GREATER THAN OR EQUAL TO 10.0 IU/mL (01/31/2016 22:01:QS system process) Rubella Titer: 23.60 (01/31/2016 22:01:QS system process) OB/PREVIOUS HISTORY LMP: 06/14/2015 00:00 (01/31/2016 21:28:Bria Christian RN) Previous Procedures: Ultrasound (01/31/2016 21:28:Bria Christian RN) Current Procedures: Ultrasound (01/31/2016 21:28:Bria Christian RN) History of Previous : Yes (01/31/2016 21:28:Bria Christian RN) History of Gestational Diabetes: No (01/31/2016 21:28:Bria Christian RN) History of PIH: No (01/31/2016 21:28:Bria Christian RN) History of Incompetent Cervix: No (01/31/2016 21:28:Bria Christian RN) History of Placenta Previa/Abrup: No (01/31/2016 21:28:Bria Christian RN) History of Macrosomia: Yes (01/31/2016 21:28:Bria Christian RN) History of IUGR: No (01/31/2016 21:28:Bria Christian RN) History of Hemorrhage: No (01/31/2016 21:28:Bria Christian RN) History of Loss/Stillborn: No (01/31/2016 21:28:Bria Christian RN) History of : No (01/31/2016 21:28:Bria Christian RN) History of D (Rh) Sensitization: No (01/31/2016 21:28:Bria Christian RN) History Recurrent Loss/Stillborn: No (01/31/2016 21:28:Bria Christian RN) History Depression/PP Depression: No (01/31/2016 21:28:Bria Christian RN) History of Uterine Anomaly/SUHAS: No (01/31/2016 21:28:Bria Christian RN) History of Infertility: No (01/31/2016 21:28:Bria Christian RN) History of ART Treatment: No (01/31/2016 21:28:Bria Christian RN) History of SUHAS: No (01/31/2016 21:28:Bria Christian RN) Comments Obstetrical History: G1: 2004; for breech presentation (42 weeks; baby turned during induction); boy 9#10 oz G2: 2006; repeat ; boy 8# 12 oz G3: 2012; repeat ; girl 10#15 oz (01/31/2016 21:28:Bria Christian RN) MEDICAL HISTORY Med Hx Diabetes: No (01/31/2016 21:28:Bria Christian RN) Med Hx Hypertension: No (01/31/2016 21:28:Bria Christian RN) Med Hx Heart Disease: No (01/31/2016 21:28:Bria Christian RN) Med Hx Autoimmune Disorder: No (01/31/2016 21:28:Bria Christian RN) Med Hx Kidney Disease/UTI: No (01/31/2016 21:28:Bria Christian RN) Med Hx Neurologic/Epilepsy: No (01/31/2016 21:28:Bria Christian RN) Med Hx Psychiatric Disorders: No (01/31/2016 21:28:Bria Christian RN) Med Hx Hepatitis/Liver Disease: No (01/31/2016 21:28:Bria Christian RN) Med Hx Varicosities/Phlebitis: No (01/31/2016 21:28:Bria Christian RN) Med Hx Thyroid Dysfunction: No (01/31/2016 21:28:Bria Christian RN) Med Hx Trauma/Violence: No (01/31/2016 21:28:Bria Christian RN) Med Hx Blood Transfusion: No (01/31/2016 21:28:Bria Christian RN) Med Hx Pulmonary (Asthma,TB): No (01/31/2016 21:28:Bria Christian RN) Med Hx Breast: No (01/31/2016 21:28:Bria Christian RN) Med Hx SERVICE DESK DIRECTOR Surgery: No (01/31/2016 21:28:Bria Christian RN) Med Hx Hospitalization/Surgery: Yes (01/31/2016 21:28:Bria Christian RN) Med Hx Anesthetic Complications: No (01/31/2016 21:28:Bria Christian RN) Med Hx Abnormal Pap Smear: Yes (01/31/2016 21:28:Bria Christian RN) Other Medical Diseases: No (01/31/2016 21:28:Bria Christian RN) Med Hx Significant Family Hx: No (01/31/2016 21:28:Bria Christian RN) Details of Med/Surg Hx: hospitalized for prior ; MRSA in 2014 (surgically removed in pubic area) (01/31/2016 21:28:Bria Christian RN) INFECTIOUS HISTORY Inf Hx Gonorrhea: No (01/31/2016 21:28:Bria Christian RN) Inf Hx Chlamydia: No (01/31/2016 21:28:Bria Christian RN) Inf Hx Syphilis: No (01/31/2016 21:28:Bria Christian RN) Inf Hx HIV/AIDS: No (01/31/2016 21:28:Bria Christian RN) Inf Hx Human Papilloma Virus: No (01/31/2016 21:28:Bria Christian RN) Inf Hx Pt/Partner Genital Herpes: No (01/31/2016 21:28:Bria Christian RN) Inf Hx Tuberculosis/Exposure: No (01/31/2016 21:28:Bria Christian RN) Inf Hx Hepatitis B,C: No (01/31/2016 21:28:Bria Christian RN) Inf Hx Rash or Viral Illness: No (01/31/2016 21:28:Bria Christian RN) GENETIC HISTORY Gen Hx Age >=35 at RK: Yes (01/31/2016 21:28:Bria Christian RN) Gen Hx Thalassemia: No (01/31/2016 21:28:Bria Christian RN) Gen Hx Congenital Heart Defect: No (01/31/2016 21:28:Bria Christian RN) Gen Hx Neural Tube Defect: No (01/31/2016 21:28:Bria Christian RN) Gen Hx Down's Syndrome: No (01/31/2016 21:28:Bria Christian RN) Gen Hx Allan-Sachs: No (01/31/2016 21:28:Bria Christian RN) Gen Hx Elio: No (01/31/2016 21:28:Bria Christian RN) Gen Hx Familial Dysautonomia: No (01/31/2016 21:28:Bria Christian RN) Gen Hx Sickle Cell Disease/Trait: Yes (01/31/2016 21:28:Bria Christian RN) Gen Hx Hemophilia/Blood Disorder: No (01/31/2016 21:28:Bria Christian RN) Gen Hx Muscular Dystrophy: No (01/31/2016 21:28:Bria Christian RN) Gen Hx Cystic Fibrosis: No (01/31/2016 21:28:Bria Christian RN) Gen Hx [place] Chorea: No (01/31/2016 21:28:Bria Christian RN) Gen Hx Mental Retardation/Autism: No (01/31/2016 21:28:Bria Christian RN) Gen Hx Tested for Fragile X: No (01/31/2016 21:28:Bria Christian RN) Gen Hx Other Inher/Chromosomal: No (01/31/2016 21:28:Bria Christian RN) Gen Hx Maternal Metabolic DO: Yes (01/31/2016 21:28:Bria Christian RN) Gen Hx Pt Father or FOB Defect: No (01/31/2016 21:28:Bria Christian RN) Gen Hx Other Genetic History: No (01/31/2016 21:28:Bria Christian RN) Gen Hx Drugs/Meds since LMP: Yes (01/31/2016 21:28:Bria Christian RN) Gen Hx Medications: PNV; antacids (01/31/2016 21:28:Bria Christian RN) Details of Genetic History: RANDELL is 42 years old; FOB has sickle cell trait and all three children carry trait; FOB has cousins that from sickle cell; mom's father from type I diabetes (01/31/2016 21:28:Bria Christian RN)
--- NOTE | 2016-04-04 06:11 | L&D Current Admission ---
Current Admit Datetime Report Generated by CPN: 04/04/2016 06:00 ADMISSION INFORMATION Chief Complaint: Decreased Movement (02/15/2016 17:53:Ade Brewster RN)
--- NOTE | 2016-04-04 06:11 | L&D General Admission ---
General Admit Datetime Report Generated by CPN: 04/04/2016 06:00 INFORMATION Patient Age: 30 (01/31/2016 21:05:QS system process) EDC: 03/30/2016 00:00 (01/31/2016 21:28:Bria Christian RN) EDC per Ultrasound: 03/30/2016 00:00 (01/31/2016 21:28:Bria Christian RN) LMP: 06/14/2015 00:00 (01/31/2016 21:28:Bria Christian RN) : 4 (01/31/2016 21:28:Bria Christian RN) Para: 3 (01/31/2016 21:28:Bria Christian RN) Term: 3 (01/31/2016 21:28:Bria Christian RN) : 0 (01/31/2016 21:28:Bria Christian RN) Spontaneous Abortions: 0 (01/31/2016 21:28:Bria Christian RN) Induced Abortions: 0 (01/31/2016 21:28:Bria Christian RN) Livin (01/31/2016 21:28:Bria Christian RN) Cesareans: 3 (01/31/2016 21:28:Bria Christian RN) VBACs: 0 (01/31/2016 21:28:Bria Christian RN) Ectopic: 0 (01/31/2016 21:28:Bria Christian RN) Multiple Births: 0 (01/31/2016 21:28:Bria Christian RN) Baby, Number in Womb: 1 (01/31/2016 21:28:Bria Christian RN) CARE Primary Director Private Music Therapy Agency: Other-Annotate (01/31/2016 21:28:Bria Christian RN) Director Private Music Therapy Agency Other: [facility] (01/31/2016 21:28:Bria Christian RN) Month of 1st Visit: July (01/31/2016 21:28:Bria Christian RN) Adequate Care: Yes (01/31/2016 21:28:Bria Christian RN) Height (in): 65 (01/31/2016 21:23:QS system process) ALLERGIES Medication Allergy: No (01/31/2016 21:28:Bria Ring, RN) Medication Allergies: No Known Allergies (03/20/2016) (03/25/2016 07:42:QS system process) Latex Allergy: No Latex Allergies (01/31/2016 21:28:Bria Ring, RN) Food Allergies: None (01/31/2016 21:28:Bria Ring, RN) Environmental Allergies: None (01/31/2016 21:28:Bria Ring, RN) COMMUNICATION Primary Language: Spanish (01/31/2016 21:28:Bria Ring, RN) Medical Tx Preferred Language: Spanish (01/31/2016 21:28:Bria Ring, RN) DEMOGRAPHICS Address: [address] [place] [address] (03/25/2016 07:42:QS system process) Zipcode: [id number] (01/31/2016 21:05:QS system process) Home (01/31/2016 21:05:QS system process) Work (01/31/2016 21:05:QS system process) SSN: [id number] (01/31/2016 21:05:QS system process) Next of Kin Name: ANJALI TEE (01/31/2016 21:05:QS system process) Next of Kin (01/31/2016 21:05:QS system process) Next of Kin Relationship: SPO (01/31/2016 21:05:QS system process) Date of : 1985 (01/31/2016 21:05:QS system process) Marital Status: (01/31/2016 21:05:QS system process) Sex: Female (01/31/2016 21:05:QS system process) Race: (01/31/2016 21:05:QS system process) Ethnicity: Non- or (01/31/2016 21:05:QS system process) Confucianism: Rastafari (01/31/2016 21:05:QS system process) DRUG AND ALCOHOL USE Alcohol: No (01/31/2016 21:28:Bria Christian RN) Cigarettes: Former Smoker. [id number] (01/31/2016 21:28:Bria Christian RN) Marijuana: No (01/31/2016 21:28:Bria Christian RN) Cocaine: No (01/31/2016 21:28:Bria Christian RN) Other Illicit Drugs: No (01/31/2016 21:28:Bria Christian RN) VACCINE HISTORY Influenza Vaccine: No (01/31/2016 21:28:Bria Christian RN) Pneumococcal Vaccine: No (01/31/2016 21:28:Bria Christian RN) Tetanus Vaccine: Yes (01/31/2016 21:28:Bria Christian RN) Tdap Vaccine: Yes (01/31/2016 21:28:Bria Christian RN) Tdap Date: 2015 (01/31/2016 21:28:Bria Christian RN) Hepatitis B Vaccine: Yes (01/31/2016 21:28:Bria Christian RN) Feeding Preference: Breast (01/31/2016 21:28:Bria Christian RN) Benefit of Breast Feed Discussed: Yes (01/31/2016 21:28:Bria Christian RN) Circumcision: N/A (01/31/2016 21:28:Bria Christian RN) Classes Attended: No (01/31/2016 21:28:Bria Christian RN) Tubal Ligation: Yes (01/31/2016 21:28:Bria Christian RN) Consent: N/A (01/31/2016 21:28:Bria Christian RN) Consent Signed: N/A (01/31/2016 21:28:Bria Christian RN) Pain Management Plans: Spinal (01/31/2016 21:28:Bria Christian RN) Support Person: Anjali Tee (01/31/2016 21:28:Bria Christian RN) Support Person Relationship: (01/31/2016 21:28:Bria Christian RN) Cultural/Spritual Practice: No (01/31/2016 21:28:Bria Christian RN) Spir/Cult Dietary Needs: No (01/31/2016 21:28:Bria Christian RN) LIVING SITUATION/DISCHARGE PLAN Living Arrangements: House (01/31/2016 21:28:Bria Christian RN) Adequate Access to:: Electric; Heat; Refrigeration; Plumbing/Running water; Phone; Transportation (01/31/2016 21:28:Bria Christian RN) WIC Program: Yes (01/31/2016 21:28:Bria Christian RN) Discharge Clay Artist Person: Anjali (01/31/2016 21:28:Bria Christian RN) Person to Help after Discharge: Anjali (01/31/2016 21:28:Bria Christian RN) Currently Using Commun Resources: Yes (01/31/2016 21:28:Bria Christian RN) Specify Current Resource Used: Medicaid and foodstamps (01/31/2016 21:28:Bria Christian RN) Outside Agency/Wireless Sales Representative: N/A (01/31/2016 21:28:Bria Christian RN) Car Seat for Discharge: Yes (01/31/2016 21:28:Bria Christian RN) Adoption Requested: No (01/31/2016 21:28:Bria Christian RN) Pt Contact w/infant Post : N/A (01/31/2016 21:28:Bria Ring, RN) LABS Blood Type: O Positive (01/31/2016 21:28:Bria Christian RN) Antibody Screen: Negative (01/31/2016 21:28:Bria Christian RN) Hemoglobin: 10.1 L (03/26/2016 07:30:QS system process) Hematocrit: 29.8 L (03/26/2016 07:30:QS system process) MCV: 77 L (03/26/2016 07:30:QS system process) HIV Results: NEGATIVE (01/31/2016 22:01:QS system process) Rubella: POSITIVE NEGATIVE IF LESS THAN OR EQUAL TO 9.99 IU/mL POSITIVE IF GREATER THAN OR EQUAL TO 10.0 IU/mL (01/31/2016 22:01:QS system process) Rubella Titer: 23.60 (01/31/2016 22:01:QS system process) OB/PREVIOUS HISTORY LMP: 06/14/2015 00:00 (01/31/2016 21:28:Bria Christian RN) Previous Procedures: Ultrasound (01/31/2016 21:28:Bria Christian RN) Current Procedures: Ultrasound (01/31/2016 21:28:Bria Christian RN) History of Previous : Yes (01/31/2016 21:28:Bria Christian RN) History of Gestational Diabetes: No (01/31/2016 21:28:Bria Christian RN) History of PIH: No (01/31/2016 21:28:Bria Christian RN) History of Incompetent Cervix: No (01/31/2016 21:28:Bria Christian RN) History of Placenta Previa/Abrup: No (01/31/2016 21:28:Bria Christian RN) History of Macrosomia: Yes (01/31/2016 21:28:Bria Christian RN) History of IUGR: No (01/31/2016 21:28:Bria Christian RN) History of Hemorrhage: No (01/31/2016 21:28:Bria Christian RN) History of Loss/Stillborn: No (01/31/2016 21:28:Bria Christian RN) History of : No (01/31/2016 21:28:Bria Christian RN) History of D (Rh) Sensitization: No (01/31/2016 21:28:Bria Christian RN) History Recurrent Loss/Stillborn: No (01/31/2016 21:28:Bria Christian RN) History Depression/PP Depression: No (01/31/2016 21:28:Bria Christian RN) History of Uterine Anomaly/SUHAS: No (01/31/2016 21:28:Bria Christian RN) History of Infertility: No (01/31/2016 21:28:Bria Christian RN) History of ART Treatment: No (01/31/2016 21:28:Bria Christian RN) History of SUHAS: No (01/31/2016 21:28:Bria Christian RN) Comments Obstetrical History: G1: 2004; for breech presentation (42 weeks; baby turned during induction); boy 9#10 oz G2: 2006; repeat ; boy 8# 12 oz G3: 2012; repeat ; girl 10#15 oz (01/31/2016 21:28:Bria Christian RN) MEDICAL HISTORY Med Hx Diabetes: No (01/31/2016 21:28:Bria Christian RN) Med Hx Hypertension: No (01/31/2016 21:28:Bria Christian RN) Med Hx Heart Disease: No (01/31/2016 21:28:Bria Christian RN) Med Hx Autoimmune Disorder: No (01/31/2016 21:28:Bria Christian RN) Med Hx Kidney Disease/UTI: No (01/31/2016 21:28:Bria Christian RN) Med Hx Neurologic/Epilepsy: No (01/31/2016 21:28:Bria Christian RN) Med Hx Psychiatric Disorders: No (01/31/2016 21:28:Bria Christian RN) Med Hx Hepatitis/Liver Disease: No (01/31/2016 21:28:Bria Christian RN) Med Hx Varicosities/Phlebitis: No (01/31/2016 21:28:Bria Christian RN) Med Hx Thyroid Dysfunction: No (01/31/2016 21:28:Bria Christian RN) Med Hx Trauma/Violence: No (01/31/2016 21:28:Bria Christian RN) Med Hx Blood Transfusion: No (01/31/2016 21:28:Bria Christian RN) Med Hx Pulmonary (Asthma,TB): No (01/31/2016 21:28:Bria Christian RN) Med Hx Breast: No (01/31/2016 21:28:Bria Christian RN) Med Hx INVESTOR RELATIONS ASSOCIATE Surgery: No (01/31/2016 21:28:Bria Christian RN) Med Hx Hospitalization/Surgery: Yes (01/31/2016 21:28:Bria Christian RN) Med Hx Anesthetic Complications: No (01/31/2016 21:28:Bria Christian RN) Med Hx Abnormal Pap Smear: Yes (01/31/2016 21:28:Bria Christian RN) Other Medical Diseases: No (01/31/2016 21:28:Bria Christian RN) Med Hx Significant Family Hx: No (01/31/2016 21:28:Bria Christian RN) Details of Med/Surg Hx: hospitalized for prior ; MRSA in 2014 (surgically removed in pubic area) (01/31/2016 21:28:Bria Christian RN) INFECTIOUS HISTORY Inf Hx Gonorrhea: No (01/31/2016 21:28:Bria Christian RN) Inf Hx Chlamydia: No (01/31/2016 21:28:Bria Christian RN) Inf Hx Syphilis: No (01/31/2016 21:28:Bria Christian RN) Inf Hx HIV/AIDS: No (01/31/2016 21:28:Bria Christian RN) Inf Hx Human Papilloma Virus: No (01/31/2016 21:28:Bria Christian RN) Inf Hx Pt/Partner Genital Herpes: No (01/31/2016 21:28:Bria Christian RN) Inf Hx Tuberculosis/Exposure: No (01/31/2016 21:28:Bria Christian RN) Inf Hx Hepatitis B,C: No (01/31/2016 21:28:Bria Christian RN) Inf Hx Rash or Viral Illness: No (01/31/2016 21:28:Bria Christian RN) GENETIC HISTORY Gen Hx Age >=35 at RK: Yes (01/31/2016 21:28:Bria Christian RN) Gen Hx Thalassemia: No (01/31/2016 21:28:Bria Christian RN) Gen Hx Congenital Heart Defect: No (01/31/2016 21:28:Bria Christian RN) Gen Hx Neural Tube Defect: No (01/31/2016 21:28:Bria Christian RN) Gen Hx Down's Syndrome: No (01/31/2016 21:28:Bria Christian RN) Gen Hx Allan-Sachs: No (01/31/2016 21:28:Bria Christian RN) Gen Hx Elio: No (01/31/2016 21:28:Bria Christian RN) Gen Hx Familial Dysautonomia: No (01/31/2016 21:28:Bria Christian RN) Gen Hx Sickle Cell Disease/Trait: Yes (01/31/2016 21:28:Bria Christian RN) Gen Hx Hemophilia/Blood Disorder: No (01/31/2016 21:28:Bria Christian RN) Gen Hx Muscular Dystrophy: No (01/31/2016 21:28:Bria Christian RN) Gen Hx Cystic Fibrosis: No (01/31/2016 21:28:Bria Christian RN) Gen Hx [place] Chorea: No (01/31/2016 21:28:Bria Christian RN) Gen Hx Mental Retardation/Autism: No (01/31/2016 21:28:Bria Christian RN) Gen Hx Tested for Fragile X: No (01/31/2016 21:28:Bria Christian RN) Gen Hx Other Inher/Chromosomal: No (01/31/2016 21:28:Bria Christian RN) Gen Hx Maternal Metabolic DO: Yes (01/31/2016 21:28:Bria Christian RN) Gen Hx Pt Father or FOB Defect: No (01/31/2016 21:28:Bria Christian RN) Gen Hx Other Genetic History: No (01/31/2016 21:28:Bria Christian RN) Gen Hx Drugs/Meds since LMP: Yes (01/31/2016 21:28:Bria Christian RN) Gen Hx Medications: PNV; antacids (01/31/2016 21:28:Bria Christian RN) Details of Genetic History: RANDELL is 42 years old; FOB has sickle cell trait and all three children carry trait; FOB has cousins that from sickle cell; mom's father from type I diabetes (01/31/2016 21:28:Bria Christian RN)
--- NOTE | 2016-04-05 06:10 | L&D Current Admission ---
Current Admit Datetime Report Generated by CPN: 04/05/2016 06:00 ADMISSION INFORMATION Chief Complaint: Decreased Movement (02/15/2016 17:53:Ade Brewster RN)
--- NOTE | 2016-04-05 06:10 | L&D General Admission ---
General Admit Datetime Report Generated by CPN: 04/05/2016 06:00 INFORMATION Patient Age: 30 (01/31/2016 21:05:QS system process) EDC: 03/30/2016 00:00 (01/31/2016 21:28:Bria Christian RN) EDC per Ultrasound: 03/30/2016 00:00 (01/31/2016 21:28:Bria Christian RN) LMP: 06/14/2015 00:00 (01/31/2016 21:28:Bria Christian RN) : 4 (01/31/2016 21:28:Bria Christian RN) Para: 3 (01/31/2016 21:28:Bria Christian RN) Term: 3 (01/31/2016 21:28:Bria Christian RN) : 0 (01/31/2016 21:28:Bria Christian RN) Spontaneous Abortions: 0 (01/31/2016 21:28:Bria Christian RN) Induced Abortions: 0 (01/31/2016 21:28:Bria Christian RN) Livin (01/31/2016 21:28:Bria Christian RN) Cesareans: 3 (01/31/2016 21:28:Bria Christian RN) VBACs: 0 (01/31/2016 21:28:Bria Christian RN) Ectopic: 0 (01/31/2016 21:28:Bria Christian RN) Multiple Births: 0 (01/31/2016 21:28:Bria Christian RN) Baby, Number in Womb: 1 (01/31/2016 21:28:Bria Christian RN) CARE Primary Sand Mill Operator: Other-Annotate (01/31/2016 21:28:Bria Christian RN) Sand Mill Operator Other: [facility] (01/31/2016 21:28:Bria Christian RN) Month of 1st Visit: July (01/31/2016 21:28:Bria Christian RN) Adequate Care: Yes (01/31/2016 21:28:Bria Christian RN) Height (in): 65 (01/31/2016 21:23:QS system process) ALLERGIES Medication Allergy: No (01/31/2016 21:28:Bria Ring, RN) Medication Allergies: No Known Allergies (03/20/2016) (03/25/2016 07:42:QS system process) Latex Allergy: No Latex Allergies (01/31/2016 21:28:Bria Ring, RN) Food Allergies: None (01/31/2016 21:28:Bria Ring, RN) Environmental Allergies: None (01/31/2016 21:28:Bria Ring, RN) COMMUNICATION Primary Language: Upper Sorbian (01/31/2016 21:28:Bria Ring, RN) Medical Tx Preferred Language: Upper Sorbian (01/31/2016 21:28:Bria Ring, RN) DEMOGRAPHICS Address: [address] [place] [id number] (03/25/2016 07:42:QS system process) Zipcode: [id number] (01/31/2016 21:05:QS system process) Home (01/31/2016 21:05:QS system process) Work (01/31/2016 21:05:QS system process) SSN: [id number] (01/31/2016 21:05:QS system process) Next of Kin Name: ANJALI TEE (01/31/2016 21:05:QS system process) Next of Kin (01/31/2016 21:05:QS system process) Next of Kin Relationship: SPO (01/31/2016 21:05:QS system process) Date of : 1985 (01/31/2016 21:05:QS system process) Marital Status: (01/31/2016 21:05:QS system process) Sex: Female (01/31/2016 21:05:QS system process) Race: (01/31/2016 21:05:QS system process) Ethnicity: Non- or (01/31/2016 21:05:QS system process) Church: Evangelical (01/31/2016 21:05:QS system process) DRUG AND ALCOHOL USE Alcohol: No (01/31/2016 21:28:Bria Christian RN) Cigarettes: Former Smoker. [id number] (01/31/2016 21:28:Bria Christian RN) Marijuana: No (01/31/2016 21:28:Bria Christian RN) Cocaine: No (01/31/2016 21:28:Bria Christian RN) Other Illicit Drugs: No (01/31/2016 21:28:Bria Christian RN) VACCINE HISTORY Influenza Vaccine: No (01/31/2016 21:28:Bria Christian RN) Pneumococcal Vaccine: No (01/31/2016 21:28:Bria Christian RN) Tetanus Vaccine: Yes (01/31/2016 21:28:Bria Christian RN) Tdap Vaccine: Yes (01/31/2016 21:28:Bria Christian RN) Tdap Date: 2015 (01/31/2016 21:28:Bria Christian RN) Hepatitis B Vaccine: Yes (01/31/2016 21:28:Bria Christian RN) Feeding Preference: Breast (01/31/2016 21:28:Bria Christian RN) Benefit of Breast Feed Discussed: Yes (01/31/2016 21:28:Bria Christian RN) Circumcision: N/A (01/31/2016 21:28:Bria Christian RN) Classes Attended: No (01/31/2016 21:28:Bria Christian RN) Tubal Ligation: Yes (01/31/2016 21:28:Bria Christian RN) Consent: N/A (01/31/2016 21:28:Bria Christian RN) Consent Signed: N/A (01/31/2016 21:28:Bria Christian RN) Pain Management Plans: Spinal (01/31/2016 21:28:Bria Christian RN) Support Person: Anjali Tee (01/31/2016 21:28:Bria Christian RN) Support Person Relationship: (01/31/2016 21:28:Bria Christian RN) Cultural/Spritual Practice: No (01/31/2016 21:28:Bria Christian RN) Spir/Cult Dietary Needs: No (01/31/2016 21:28:Bria Christian RN) LIVING SITUATION/DISCHARGE PLAN Living Arrangements: House (01/31/2016 21:28:Bria Christian RN) Adequate Access to:: Electric; Heat; Refrigeration; Plumbing/Running water; Phone; Transportation (01/31/2016 21:28:Bria Christian RN) WIC Program: Yes (01/31/2016 21:28:Bria Christian RN) Discharge Science Manager Person: Anjali (01/31/2016 21:28:Bria Christian RN) Person to Help after Discharge: Anjali (01/31/2016 21:28:Bria Christian RN) Currently Using Commun Resources: Yes (01/31/2016 21:28:Bria Christian RN) Specify Current Resource Used: Medicaid and foodstamps (01/31/2016 21:28:Bria Christian RN) Outside Agency/Sales Force Administrator: N/A (01/31/2016 21:28:Bria Christian RN) Car Seat for Discharge: Yes (01/31/2016 21:28:Bria Christian RN) Adoption Requested: No (01/31/2016 21:28:Bria Christian RN) Pt Contact w/infant Post : N/A (01/31/2016 21:28:Bria Ring, RN) LABS Blood Type: O Positive (01/31/2016 21:28:Bria Christian RN) Antibody Screen: Negative (01/31/2016 21:28:Bria Christian RN) Hemoglobin: 10.1 L (03/26/2016 07:30:QS system process) Hematocrit: 29.8 L (03/26/2016 07:30:QS system process) MCV: 77 L (03/26/2016 07:30:QS system process) HIV Results: NEGATIVE (01/31/2016 22:01:QS system process) Rubella: POSITIVE NEGATIVE IF LESS THAN OR EQUAL TO 9.99 IU/mL POSITIVE IF GREATER THAN OR EQUAL TO 10.0 IU/mL (01/31/2016 22:01:QS system process) Rubella Titer: 23.60 (01/31/2016 22:01:QS system process) OB/PREVIOUS HISTORY LMP: 06/14/2015 00:00 (01/31/2016 21:28:Bria Christian RN) Previous Procedures: Ultrasound (01/31/2016 21:28:Bria Christian RN) Current Procedures: Ultrasound (01/31/2016 21:28:Bria Christian RN) History of Previous : Yes (01/31/2016 21:28:Bria Christian RN) History of Gestational Diabetes: No (01/31/2016 21:28:Bria Christian RN) History of PIH: No (01/31/2016 21:28:Bria Christian RN) History of Incompetent Cervix: No (01/31/2016 21:28:Bria Christian RN) History of Placenta Previa/Abrup: No (01/31/2016 21:28:Bria Christian RN) History of Macrosomia: Yes (01/31/2016 21:28:Bria Christian RN) History of IUGR: No (01/31/2016 21:28:Bria Christian RN) History of Hemorrhage: No (01/31/2016 21:28:Bria Christian RN) History of Loss/Stillborn: No (01/31/2016 21:28:Bria Christian RN) History of : No (01/31/2016 21:28:Bria Christian RN) History of D (Rh) Sensitization: No (01/31/2016 21:28:Bria Christian RN) History Recurrent Loss/Stillborn: No (01/31/2016 21:28:Bria Christian RN) History Depression/PP Depression: No (01/31/2016 21:28:Bria Christian RN) History of Uterine Anomaly/SUHAS: No (01/31/2016 21:28:Bria Christian RN) History of Infertility: No (01/31/2016 21:28:Bria Christian RN) History of ART Treatment: No (01/31/2016 21:28:Bria Christian RN) History of SUHAS: No (01/31/2016 21:28:Bria Christian RN) Comments Obstetrical History: G1: 2004; for breech presentation (42 weeks; baby turned during induction); boy 9#10 oz G2: 2006; repeat ; boy 8# 12 oz G3: 2012; repeat ; girl 10#15 oz (01/31/2016 21:28:Bria Christian RN) MEDICAL HISTORY Med Hx Diabetes: No (01/31/2016 21:28:Bria Christian RN) Med Hx Hypertension: No (01/31/2016 21:28:Bria Christian RN) Med Hx Heart Disease: No (01/31/2016 21:28:Bria Christian RN) Med Hx Autoimmune Disorder: No (01/31/2016 21:28:Bria Christian RN) Med Hx Kidney Disease/UTI: No (01/31/2016 21:28:Bria Christian RN) Med Hx Neurologic/Epilepsy: No (01/31/2016 21:28:Bria Christian RN) Med Hx Psychiatric Disorders: No (01/31/2016 21:28:Bria Christian RN) Med Hx Hepatitis/Liver Disease: No (01/31/2016 21:28:Bria Christian RN) Med Hx Varicosities/Phlebitis: No (01/31/2016 21:28:Bria Christian RN) Med Hx Thyroid Dysfunction: No (01/31/2016 21:28:Bria Christian RN) Med Hx Trauma/Violence: No (01/31/2016 21:28:Bria Christian RN) Med Hx Blood Transfusion: No (01/31/2016 21:28:Bria Christian RN) Med Hx Pulmonary (Asthma,TB): No (01/31/2016 21:28:Bria Christian RN) Med Hx Breast: No (01/31/2016 21:28:Bria Christian RN) Med Hx ENGINEERING INTERN Surgery: No (01/31/2016 21:28:Bria Christian RN) Med Hx Hospitalization/Surgery: Yes (01/31/2016 21:28:Bria Christian RN) Med Hx Anesthetic Complications: No (01/31/2016 21:28:Bria Christian RN) Med Hx Abnormal Pap Smear: Yes (01/31/2016 21:28:Bria Christian RN) Other Medical Diseases: No (01/31/2016 21:28:Bria Christian RN) Med Hx Significant Family Hx: No (01/31/2016 21:28:Bria Christian RN) Details of Med/Surg Hx: hospitalized for prior ; MRSA in 2014 (surgically removed in pubic area) (01/31/2016 21:28:Bria Christian RN) INFECTIOUS HISTORY Inf Hx Gonorrhea: No (01/31/2016 21:28:Bria Christian RN) Inf Hx Chlamydia: No (01/31/2016 21:28:Bria Christian RN) Inf Hx Syphilis: No (01/31/2016 21:28:Bria Christian RN) Inf Hx HIV/AIDS: No (01/31/2016 21:28:Bria Christian RN) Inf Hx Human Papilloma Virus: No (01/31/2016 21:28:Bria Christian RN) Inf Hx Pt/Partner Genital Herpes: No (01/31/2016 21:28:Bria Christian RN) Inf Hx Tuberculosis/Exposure: No (01/31/2016 21:28:Bria Christian RN) Inf Hx Hepatitis B,C: No (01/31/2016 21:28:Bria Christian RN) Inf Hx Rash or Viral Illness: No (01/31/2016 21:28:Bria Christian RN) GENETIC HISTORY Gen Hx Age >=35 at RK: Yes (01/31/2016 21:28:Bria Christian RN) Gen Hx Thalassemia: No (01/31/2016 21:28:Bria Christian RN) Gen Hx Congenital Heart Defect: No (01/31/2016 21:28:Bria Christian RN) Gen Hx Neural Tube Defect: No (01/31/2016 21:28:Bria Christian RN) Gen Hx Down's Syndrome: No (01/31/2016 21:28:Bria Christian RN) Gen Hx Allan-Sachs: No (01/31/2016 21:28:Bria Christian RN) Gen Hx Elio: No (01/31/2016 21:28:Bria Christian RN) Gen Hx Familial Dysautonomia: No (01/31/2016 21:28:Bria Christian RN) Gen Hx Sickle Cell Disease/Trait: Yes (01/31/2016 21:28:Bria Christian RN) Gen Hx Hemophilia/Blood Disorder: No (01/31/2016 21:28:Bria Christian RN) Gen Hx Muscular Dystrophy: No (01/31/2016 21:28:Bria Christian RN) Gen Hx Cystic Fibrosis: No (01/31/2016 21:28:Bria Christian RN) Gen Hx [place] Chorea: No (01/31/2016 21:28:Bria Christian RN) Gen Hx Mental Retardation/Autism: No (01/31/2016 21:28:Bria Christian RN) Gen Hx Tested for Fragile X: No (01/31/2016 21:28:Bria Christian RN) Gen Hx Other Inher/Chromosomal: No (01/31/2016 21:28:Bria Christian RN) Gen Hx Maternal Metabolic DO: Yes (01/31/2016 21:28:Bria Christian RN) Gen Hx Pt Father or FOB Defect: No (01/31/2016 21:28:Bria Christian RN) Gen Hx Other Genetic History: No (01/31/2016 21:28:Bria Christian RN) Gen Hx Drugs/Meds since LMP: Yes (01/31/2016 21:28:Bria Christian RN) Gen Hx Medications: PNV; antacids (01/31/2016 21:28:Bria Christian RN) Details of Genetic History: RANDELL is 42 years old; FOB has sickle cell trait and all three children carry trait; FOB has cousins that from sickle cell; mom's father from type I diabetes (01/31/2016 21:28:Bria Christian RN)
--- NOTE | 2016-04-06 06:10 | L&D Current Admission ---
Current Admit Datetime Report Generated by CPN: 04/06/2016 06:00 ADMISSION INFORMATION Chief Complaint: Decreased Movement (02/15/2016 17:53:Ade Brewster RN)
--- NOTE | 2016-04-06 06:10 | L&D General Admission ---
General Admit Datetime Report Generated by CPN: 04/06/2016 06:00 INFORMATION Patient Age: 30 (01/31/2016 21:05:QS system process) EDC: 03/30/2016 00:00 (01/31/2016 21:28:Bria Christian RN) EDC per Ultrasound: 03/30/2016 00:00 (01/31/2016 21:28:Bria Christian RN) LMP: 06/14/2015 00:00 (01/31/2016 21:28:Bria Christian RN) : 4 (01/31/2016 21:28:Bria Christian RN) Para: 3 (01/31/2016 21:28:Bria Christian RN) Term: 3 (01/31/2016 21:28:Bria Christian RN) : 0 (01/31/2016 21:28:Bria Christian RN) Spontaneous Abortions: 0 (01/31/2016 21:28:Bria Christian RN) Induced Abortions: 0 (01/31/2016 21:28:Bria Christian RN) Livin (01/31/2016 21:28:Bria Christian RN) Cesareans: 3 (01/31/2016 21:28:Bria Christian RN) VBACs: 0 (01/31/2016 21:28:Bria Christian RN) Ectopic: 0 (01/31/2016 21:28:Bria Christian RN) Multiple Births: 0 (01/31/2016 21:28:Bria Christian RN) Baby, Number in Womb: 1 (01/31/2016 21:28:Bria Christian RN) CARE Primary Mold Cleaner: Other-Annotate (01/31/2016 21:28:Bria Christian RN) Mold Cleaner Other: [facility] (01/31/2016 21:28:Bria Christian RN) Month of 1st Visit: July (01/31/2016 21:28:Bria Christian RN) Adequate Care: Yes (01/31/2016 21:28:Bria Christian RN) Height (in): 65 (01/31/2016 21:23:QS system process) ALLERGIES Medication Allergy: No (01/31/2016 21:28:Bria Ring, RN) Medication Allergies: No Known Allergies (03/20/2016) (03/25/2016 07:42:QS system process) Latex Allergy: No Latex Allergies (01/31/2016 21:28:Bria Ring, RN) Food Allergies: None (01/31/2016 21:28:Bria Ring, RN) Environmental Allergies: None (01/31/2016 21:28:Bria Ring, RN) COMMUNICATION Primary Language: Thai (01/31/2016 21:28:Bria Ring, RN) Medical Tx Preferred Language: Thai (01/31/2016 21:28:Bria Ring, RN) DEMOGRAPHICS Address: [address] [place] [id number] (03/25/2016 07:42:QS system process) Zipcode: [id number] (01/31/2016 21:05:QS system process) Home (01/31/2016 21:05:QS system process) Work (01/31/2016 21:05:QS system process) SSN: [id number] (01/31/2016 21:05:QS system process) Next of Kin Name: ANJALI TEE (01/31/2016 21:05:QS system process) Next of Kin (01/31/2016 21:05:QS system process) Next of Kin Relationship: SPO (01/31/2016 21:05:QS system process) Date of : 1985 (01/31/2016 21:05:QS system process) Marital Status: (01/31/2016 21:05:QS system process) Sex: Female (01/31/2016 21:05:QS system process) Race: (01/31/2016 21:05:QS system process) Ethnicity: Non- or (01/31/2016 21:05:QS system process) Mormonism: Mu-Ism (01/31/2016 21:05:QS system process) DRUG AND ALCOHOL USE Alcohol: No (01/31/2016 21:28:Bria Christian RN) Cigarettes: Former Smoker. [id number] (01/31/2016 21:28:Bria Christian RN) Marijuana: No (01/31/2016 21:28:Bria Christian RN) Cocaine: No (01/31/2016 21:28:Bria Christian RN) Other Illicit Drugs: No (01/31/2016 21:28:Bria Christian RN) VACCINE HISTORY Influenza Vaccine: No (01/31/2016 21:28:Bria Christian RN) Pneumococcal Vaccine: No (01/31/2016 21:28:Bria Christian RN) Tetanus Vaccine: Yes (01/31/2016 21:28:Bria Christian RN) Tdap Vaccine: Yes (01/31/2016 21:28:Bria Christian RN) Tdap Date: 2015 (01/31/2016 21:28:Bria Christian RN) Hepatitis B Vaccine: Yes (01/31/2016 21:28:Bria Christian RN) Feeding Preference: Breast (01/31/2016 21:28:Bria Christian RN) Benefit of Breast Feed Discussed: Yes (01/31/2016 21:28:Bria Christian RN) Circumcision: N/A (01/31/2016 21:28:Bria Christian RN) Classes Attended: No (01/31/2016 21:28:Bria Christian RN) Tubal Ligation: Yes (01/31/2016 21:28:Bria Christian RN) Consent: N/A (01/31/2016 21:28:Bria Christian RN) Consent Signed: N/A (01/31/2016 21:28:Bria Christian RN) Pain Management Plans: Spinal (01/31/2016 21:28:Bria Christian RN) Support Person: Anjali Tee (01/31/2016 21:28:Bria Christian RN) Support Person Relationship: (01/31/2016 21:28:Bria Christian RN) Cultural/Spritual Practice: No (01/31/2016 21:28:Bria Christian RN) Spir/Cult Dietary Needs: No (01/31/2016 21:28:Bria Christian RN) LIVING SITUATION/DISCHARGE PLAN Living Arrangements: House (01/31/2016 21:28:Bria Christian RN) Adequate Access to:: Electric; Heat; Refrigeration; Plumbing/Running water; Phone; Transportation (01/31/2016 21:28:Bria Christian RN) WIC Program: Yes (01/31/2016 21:28:Bria Christian RN) Discharge Bicycle Messenger Person: Anjali (01/31/2016 21:28:Bria Christian RN) Person to Help after Discharge: Anjali (01/31/2016 21:28:Bria Christian RN) Currently Using Commun Resources: Yes (01/31/2016 21:28:Bria Christian RN) Specify Current Resource Used: Medicaid and foodstamps (01/31/2016 21:28:Bria Christian RN) Outside Agency/Post Doc Fellowship: N/A (01/31/2016 21:28:Bria Christian RN) Car Seat for Discharge: Yes (01/31/2016 21:28:Bria Christian RN) Adoption Requested: No (01/31/2016 21:28:Bria Christian RN) Pt Contact w/infant Post : N/A (01/31/2016 21:28:Bria Ring, RN) LABS Blood Type: O Positive (01/31/2016 21:28:Bria Christian RN) Antibody Screen: Negative (01/31/2016 21:28:Bria Christian RN) Hemoglobin: 10.1 L (03/26/2016 07:30:QS system process) Hematocrit: 29.8 L (03/26/2016 07:30:QS system process) MCV: 77 L (03/26/2016 07:30:QS system process) HIV Results: NEGATIVE (01/31/2016 22:01:QS system process) Rubella: POSITIVE NEGATIVE IF LESS THAN OR EQUAL TO 9.99 IU/mL POSITIVE IF GREATER THAN OR EQUAL TO 10.0 IU/mL (01/31/2016 22:01:QS system process) Rubella Titer: 23.60 (01/31/2016 22:01:QS system process) OB/PREVIOUS HISTORY LMP: 06/14/2015 00:00 (01/31/2016 21:28:Bria Christian RN) Previous Procedures: Ultrasound (01/31/2016 21:28:Bria Christian RN) Current Procedures: Ultrasound (01/31/2016 21:28:Bria Christian RN) History of Previous : Yes (01/31/2016 21:28:Bria Christian RN) History of Gestational Diabetes: No (01/31/2016 21:28:Bria Christian RN) History of PIH: No (01/31/2016 21:28:Bria Christian RN) History of Incompetent Cervix: No (01/31/2016 21:28:Bria Christian RN) History of Placenta Previa/Abrup: No (01/31/2016 21:28:Bria Christian RN) History of Macrosomia: Yes (01/31/2016 21:28:Bria Christian RN) History of IUGR: No (01/31/2016 21:28:Bria Christian RN) History of Hemorrhage: No (01/31/2016 21:28:Bria Christian RN) History of Loss/Stillborn: No (01/31/2016 21:28:Bria Christian RN) History of : No (01/31/2016 21:28:Bria Christian RN) History of D (Rh) Sensitization: No (01/31/2016 21:28:Bria Christian RN) History Recurrent Loss/Stillborn: No (01/31/2016 21:28:Bria Christian RN) History Depression/PP Depression: No (01/31/2016 21:28:Bria Christian RN) History of Uterine Anomaly/SUHAS: No (01/31/2016 21:28:Bria Christian RN) History of Infertility: No (01/31/2016 21:28:Bria Christian RN) History of ART Treatment: No (01/31/2016 21:28:Bria Christian RN) History of SUHAS: No (01/31/2016 21:28:Bria Christian RN) Comments Obstetrical History: G1: 2004; for breech presentation (42 weeks; baby turned during induction); boy 9#10 oz G2: 2006; repeat ; boy 8# 12 oz G3: 2012; repeat ; girl 10#15 oz (01/31/2016 21:28:Bria Christian RN) MEDICAL HISTORY Med Hx Diabetes: No (01/31/2016 21:28:Bria Christian RN) Med Hx Hypertension: No (01/31/2016 21:28:Bria Christian RN) Med Hx Heart Disease: No (01/31/2016 21:28:Bria Christian RN) Med Hx Autoimmune Disorder: No (01/31/2016 21:28:Bria Christian RN) Med Hx Kidney Disease/UTI: No (01/31/2016 21:28:Bria Christian RN) Med Hx Neurologic/Epilepsy: No (01/31/2016 21:28:Bria Christian RN) Med Hx Psychiatric Disorders: No (01/31/2016 21:28:Bria Christian RN) Med Hx Hepatitis/Liver Disease: No (01/31/2016 21:28:Bria Christian RN) Med Hx Varicosities/Phlebitis: No (01/31/2016 21:28:Bria Christian RN) Med Hx Thyroid Dysfunction: No (01/31/2016 21:28:Bria Christian RN) Med Hx Trauma/Violence: No (01/31/2016 21:28:Bria Christian RN) Med Hx Blood Transfusion: No (01/31/2016 21:28:Bria Christian RN) Med Hx Pulmonary (Asthma,TB): No (01/31/2016 21:28:Bria Christian RN) Med Hx Breast: No (01/31/2016 21:28:Bria Christian RN) Med Hx MD UROLOGIST Surgery: No (01/31/2016 21:28:Bria Christian RN) Med Hx Hospitalization/Surgery: Yes (01/31/2016 21:28:Bria Christian RN) Med Hx Anesthetic Complications: No (01/31/2016 21:28:Bria Christian RN) Med Hx Abnormal Pap Smear: Yes (01/31/2016 21:28:Bria Christian RN) Other Medical Diseases: No (01/31/2016 21:28:Bria Christian RN) Med Hx Significant Family Hx: No (01/31/2016 21:28:Bria Christian RN) Details of Med/Surg Hx: hospitalized for prior ; MRSA in 2014 (surgically removed in pubic area) (01/31/2016 21:28:Bria Christian RN) INFECTIOUS HISTORY Inf Hx Gonorrhea: No (01/31/2016 21:28:Bria Christian RN) Inf Hx Chlamydia: No (01/31/2016 21:28:Bria Christian RN) Inf Hx Syphilis: No (01/31/2016 21:28:Bria Christian RN) Inf Hx HIV/AIDS: No (01/31/2016 21:28:Bria Christian RN) Inf Hx Human Papilloma Virus: No (01/31/2016 21:28:Bria Christian RN) Inf Hx Pt/Partner Genital Herpes: No (01/31/2016 21:28:Bria Christian RN) Inf Hx Tuberculosis/Exposure: No (01/31/2016 21:28:Bria Christian RN) Inf Hx Hepatitis B,C: No (01/31/2016 21:28:Bria Christian RN) Inf Hx Rash or Viral Illness: No (01/31/2016 21:28:Bria Christian RN) GENETIC HISTORY Gen Hx Age >=35 at RK: Yes (01/31/2016 21:28:Bria Christian RN) Gen Hx Thalassemia: No (01/31/2016 21:28:Bria Christian RN) Gen Hx Congenital Heart Defect: No (01/31/2016 21:28:Bria Christian RN) Gen Hx Neural Tube Defect: No (01/31/2016 21:28:Bria Christian RN) Gen Hx Down's Syndrome: No (01/31/2016 21:28:Bria Christian RN) Gen Hx Allan-Sachs: No (01/31/2016 21:28:Bria Christian RN) Gen Hx Elio: No (01/31/2016 21:28:Bria Christian RN) Gen Hx Familial Dysautonomia: No (01/31/2016 21:28:Bria Christian RN) Gen Hx Sickle Cell Disease/Trait: Yes (01/31/2016 21:28:Bria Christian RN) Gen Hx Hemophilia/Blood Disorder: No (01/31/2016 21:28:Bria Christian RN) Gen Hx Muscular Dystrophy: No (01/31/2016 21:28:Bria Christian RN) Gen Hx Cystic Fibrosis: No (01/31/2016 21:28:Bria Christian RN) Gen Hx [place] Chorea: No (01/31/2016 21:28:Bria Christian RN) Gen Hx Mental Retardation/Autism: No (01/31/2016 21:28:Bria Christian RN) Gen Hx Tested for Fragile X: No (01/31/2016 21:28:Bria Christian RN) Gen Hx Other Inher/Chromosomal: No (01/31/2016 21:28:Bria Christian RN) Gen Hx Maternal Metabolic DO: Yes (01/31/2016 21:28:Bria Christian RN) Gen Hx Pt Father or FOB Defect: No (01/31/2016 21:28:Bria Christian RN) Gen Hx Other Genetic History: No (01/31/2016 21:28:Bria Christian RN) Gen Hx Drugs/Meds since LMP: Yes (01/31/2016 21:28:Bria Christian RN) Gen Hx Medications: PNV; antacids (01/31/2016 21:28:Bria Christian RN) Details of Genetic History: RANDELL is 42 years old; FOB has sickle cell trait and all three children carry trait; FOB has cousins that from sickle cell; mom's father from type I diabetes (01/31/2016 21:28:Bria Christian RN)
--- NOTE | 2016-04-07 06:10 | L&D Current Admission ---
Current Admit Datetime Report Generated by CPN: 04/07/2016 06:00 ADMISSION INFORMATION Chief Complaint: Decreased Movement (02/15/2016 17:53:Ade Brewster RN)
--- NOTE | 2016-04-07 06:10 | L&D General Admission ---
General Admit Datetime Report Generated by CPN: 04/07/2016 06:00 INFORMATION Patient Age: 30 (01/31/2016 21:05:QS system process) EDC: 03/30/2016 00:00 (01/31/2016 21:28:Bria Christian RN) EDC per Ultrasound: 03/30/2016 00:00 (01/31/2016 21:28:Bria Christian RN) LMP: 06/14/2015 00:00 (01/31/2016 21:28:Bria Christian RN) : 4 (01/31/2016 21:28:Bria Christian RN) Para: 3 (01/31/2016 21:28:Bria Christian RN) Term: 3 (01/31/2016 21:28:Bria Christian RN) : 0 (01/31/2016 21:28:Bria Christian RN) Spontaneous Abortions: 0 (01/31/2016 21:28:Bria Christian RN) Induced Abortions: 0 (01/31/2016 21:28:Bria Christian RN) Livin (01/31/2016 21:28:Bria Christian RN) Cesareans: 3 (01/31/2016 21:28:Bria Christian RN) VBACs: 0 (01/31/2016 21:28:Bria Christian RN) Ectopic: 0 (01/31/2016 21:28:Bria Christian RN) Multiple Births: 0 (01/31/2016 21:28:Bria Christian RN) Baby, Number in Womb: 1 (01/31/2016 21:28:Bria Christian RN) CARE Primary Chlorine Plant Operator: Other-Annotate (01/31/2016 21:28:Bria Christian RN) Chlorine Plant Operator Other: [facility] (01/31/2016 21:28:Bria Christian RN) Month of 1st Visit: July (01/31/2016 21:28:Bria Christian RN) Adequate Care: Yes (01/31/2016 21:28:Bria Christian RN) Height (in): 65 (01/31/2016 21:23:QS system process) ALLERGIES Medication Allergy: No (01/31/2016 21:28:Bria Ring, RN) Medication Allergies: No Known Allergies (03/20/2016) (03/25/2016 07:42:QS system process) Latex Allergy: No Latex Allergies (01/31/2016 21:28:Bria Ring, RN) Food Allergies: None (01/31/2016 21:28:Bria Ring, RN) Environmental Allergies: None (01/31/2016 21:28:Bria Ring, RN) COMMUNICATION Primary Language: Slovenian (01/31/2016 21:28:Bria Ring, RN) Medical Tx Preferred Language: Slovenian (01/31/2016 21:28:Bria Ring, RN) DEMOGRAPHICS Address: [address] [place] [id number] (03/25/2016 07:42:QS system process) Zipcode: [address] (01/31/2016 21:05:QS system process) Home (01/31/2016 21:05:QS system process) Work (01/31/2016 21:05:QS system process) SSN: [id number] (01/31/2016 21:05:QS system process) Next of Kin Name: ANJALI TEE (01/31/2016 21:05:QS system process) Next of Kin (01/31/2016 21:05:QS system process) Next of Kin Relationship: SPO (01/31/2016 21:05:QS system process) Date of : 1985 (01/31/2016 21:05:QS system process) Marital Status: (01/31/2016 21:05:QS system process) Sex: Female (01/31/2016 21:05:QS system process) Race: (01/31/2016 21:05:QS system process) Ethnicity: Non- or (01/31/2016 21:05:QS system process) Methodist: Lutheran (01/31/2016 21:05:QS system process) DRUG AND ALCOHOL USE Alcohol: No (01/31/2016 21:28:Bria Christian RN) Cigarettes: Former Smoker. [id number] (01/31/2016 21:28:Bria Christian RN) Marijuana: No (01/31/2016 21:28:Bria Christian RN) Cocaine: No (01/31/2016 21:28:Bria Christian RN) Other Illicit Drugs: No (01/31/2016 21:28:Bria Christian RN) VACCINE HISTORY Influenza Vaccine: No (01/31/2016 21:28:Bria Christian RN) Pneumococcal Vaccine: No (01/31/2016 21:28:Bria Christian RN) Tetanus Vaccine: Yes (01/31/2016 21:28:Bria Christian RN) Tdap Vaccine: Yes (01/31/2016 21:28:Bria Christian RN) Tdap Date: 2015 (01/31/2016 21:28:Bria Christian RN) Hepatitis B Vaccine: Yes (01/31/2016 21:28:Bria Christian RN) Feeding Preference: Breast (01/31/2016 21:28:Bria Christian RN) Benefit of Breast Feed Discussed: Yes (01/31/2016 21:28:Bria Christian RN) Circumcision: N/A (01/31/2016 21:28:Bria Christian RN) Classes Attended: No (01/31/2016 21:28:Bria Christian RN) Tubal Ligation: Yes (01/31/2016 21:28:Bria Christian RN) Consent: N/A (01/31/2016 21:28:Bria Christian RN) Consent Signed: N/A (01/31/2016 21:28:Bria Christian RN) Pain Management Plans: Spinal (01/31/2016 21:28:Bria Christian RN) Support Person: Anjali Tee (01/31/2016 21:28:Bria Christian RN) Support Person Relationship: (01/31/2016 21:28:Bria Christian RN) Cultural/Spritual Practice: No (01/31/2016 21:28:Bria Christian RN) Spir/Cult Dietary Needs: No (01/31/2016 21:28:Bria Christian RN) LIVING SITUATION/DISCHARGE PLAN Living Arrangements: House (01/31/2016 21:28:Bria Christian RN) Adequate Access to:: Electric; Heat; Refrigeration; Plumbing/Running water; Phone; Transportation (01/31/2016 21:28:Bria Christian RN) WIC Program: Yes (01/31/2016 21:28:Bria Christian RN) Discharge Information Assurance Engineer Person: Anjali (01/31/2016 21:28:Bria Chritsian RN) Person to Help after Discharge: Anjali (01/31/2016 21:28:Bria Christian RN) Currently Using Commun Resources: Yes (01/31/2016 21:28:Bria Christian RN) Specify Current Resource Used: Medicaid and foodstamps (01/31/2016 21:28:Bria Christian RN) Outside Agency/Professional System Administrator: N/A (01/31/2016 21:28:Bria Christian RN) Car Seat for Discharge: Yes (01/31/2016 21:28:Bria Christian RN) Adoption Requested: No (01/31/2016 21:28:Bria Christian RN) Pt Contact w/infant Post : N/A (01/31/2016 21:28:Bria Ring, RN) LABS Blood Type: O Positive (01/31/2016 21:28:Bria Christian RN) Antibody Screen: Negative (01/31/2016 21:28:Bria Christian RN) Hemoglobin: 10.1 L (03/26/2016 07:30:QS system process) Hematocrit: 29.8 L (03/26/2016 07:30:QS system process) MCV: 77 L (03/26/2016 07:30:QS system process) HIV Results: NEGATIVE (01/31/2016 22:01:QS system process) Rubella: POSITIVE NEGATIVE IF LESS THAN OR EQUAL TO 9.99 IU/mL POSITIVE IF GREATER THAN OR EQUAL TO 10.0 IU/mL (01/31/2016 22:01:QS system process) Rubella Titer: 23.60 (01/31/2016 22:01:QS system process) OB/PREVIOUS HISTORY LMP: 06/14/2015 00:00 (01/31/2016 21:28:Bria Christian RN) Previous Procedures: Ultrasound (01/31/2016 21:28:Bria Christian RN) Current Procedures: Ultrasound (01/31/2016 21:28:Bria Christian RN) History of Previous : Yes (01/31/2016 21:28:Bria Christian RN) History of Gestational Diabetes: No (01/31/2016 21:28:Bria Christian RN) History of PIH: No (01/31/2016 21:28:Bria Christian RN) History of Incompetent Cervix: No (01/31/2016 21:28:Bria Christian RN) History of Placenta Previa/Abrup: No (01/31/2016 21:28:Bria Christian RN) History of Macrosomia: Yes (01/31/2016 21:28:Bria Christian RN) History of IUGR: No (01/31/2016 21:28:Bria Christian RN) History of Hemorrhage: No (01/31/2016 21:28:Bria Christian RN) History of Loss/Stillborn: No (01/31/2016 21:28:Bria Christian RN) History of : No (01/31/2016 21:28:Bria Christian RN) History of D (Rh) Sensitization: No (01/31/2016 21:28:Bria Christian RN) History Recurrent Loss/Stillborn: No (01/31/2016 21:28:Bria Christian RN) History Depression/PP Depression: No (01/31/2016 21:28:Bria Christian RN) History of Uterine Anomaly/SUHAS: No (01/31/2016 21:28:Bria Christian RN) History of Infertility: No (01/31/2016 21:28:Bria Christian RN) History of ART Treatment: No (01/31/2016 21:28:Bria Christian RN) History of SUHAS: No (01/31/2016 21:28:Bria Christian RN) Comments Obstetrical History: G1: 2004; for breech presentation (42 weeks; baby turned during induction); boy 9#10 oz G2: 2006; repeat ; boy 8# 12 oz G3: 2012; repeat ; girl 10#15 oz (01/31/2016 21:28:Bria Christian RN) MEDICAL HISTORY Med Hx Diabetes: No (01/31/2016 21:28:Bria Christian RN) Med Hx Hypertension: No (01/31/2016 21:28:Bria Christian RN) Med Hx Heart Disease: No (01/31/2016 21:28:Bria Christian RN) Med Hx Autoimmune Disorder: No (01/31/2016 21:28:Bria Christian RN) Med Hx Kidney Disease/UTI: No (01/31/2016 21:28:Bria Christian RN) Med Hx Neurologic/Epilepsy: No (01/31/2016 21:28:Bria Christian RN) Med Hx Psychiatric Disorders: No (01/31/2016 21:28:Bria Christian RN) Med Hx Hepatitis/Liver Disease: No (01/31/2016 21:28:Bria Christian RN) Med Hx Varicosities/Phlebitis: No (01/31/2016 21:28:Bria Christian RN) Med Hx Thyroid Dysfunction: No (01/31/2016 21:28:Bria Christian RN) Med Hx Trauma/Violence: No (01/31/2016 21:28:Bria Christian RN) Med Hx Blood Transfusion: No (01/31/2016 21:28:Bria Christian RN) Med Hx Pulmonary (Asthma,TB): No (01/31/2016 21:28:Bria Christian RN) Med Hx Breast: No (01/31/2016 21:28:Bria Christian RN) Med Hx SENIOR DATASTAGE DEVELOPER Surgery: No (01/31/2016 21:28:Bria Christian RN) Med Hx Hospitalization/Surgery: Yes (01/31/2016 21:28:Bria Christian RN) Med Hx Anesthetic Complications: No (01/31/2016 21:28:Bria Christian RN) Med Hx Abnormal Pap Smear: Yes (01/31/2016 21:28:Bria Christian RN) Other Medical Diseases: No (01/31/2016 21:28:Bria Christian RN) Med Hx Significant Family Hx: No (01/31/2016 21:28:Bria Christian RN) Details of Med/Surg Hx: hospitalized for prior ; MRSA in 2014 (surgically removed in pubic area) (01/31/2016 21:28:Bria Christian RN) INFECTIOUS HISTORY Inf Hx Gonorrhea: No (01/31/2016 21:28:Bria Christian RN) Inf Hx Chlamydia: No (01/31/2016 21:28:Bria Christian RN) Inf Hx Syphilis: No (01/31/2016 21:28:Bria Christian RN) Inf Hx HIV/AIDS: No (01/31/2016 21:28:Bria Christian RN) Inf Hx Human Papilloma Virus: No (01/31/2016 21:28:Bria Christian RN) Inf Hx Pt/Partner Genital Herpes: No (01/31/2016 21:28:Bria Christian RN) Inf Hx Tuberculosis/Exposure: No (01/31/2016 21:28:Bria Christian RN) Inf Hx Hepatitis B,C: No (01/31/2016 21:28:Bria Christian RN) Inf Hx Rash or Viral Illness: No (01/31/2016 21:28:Bria Christian RN) GENETIC HISTORY Gen Hx Age >=35 at RK: Yes (01/31/2016 21:28:Bria Christian RN) Gen Hx Thalassemia: No (01/31/2016 21:28:Bria Christian RN) Gen Hx Congenital Heart Defect: No (01/31/2016 21:28:Bria Christian RN) Gen Hx Neural Tube Defect: No (01/31/2016 21:28:Bria Christian RN) Gen Hx Down's Syndrome: No (01/31/2016 21:28:Bria Christian RN) Gen Hx Allan-Sachs: No (01/31/2016 21:28:Bria Christian RN) Gen Hx Elio: No (01/31/2016 21:28:Bria Christian RN) Gen Hx Familial Dysautonomia: No (01/31/2016 21:28:Bria Christian RN) Gen Hx Sickle Cell Disease/Trait: Yes (01/31/2016 21:28:Bria Christian RN) Gen Hx Hemophilia/Blood Disorder: No (01/31/2016 21:28:Bria Christian RN) Gen Hx Muscular Dystrophy: No (01/31/2016 21:28:Bria Christian RN) Gen Hx Cystic Fibrosis: No (01/31/2016 21:28:Bria Christian RN) Gen Hx [place] Chorea: No (01/31/2016 21:28:Bria Christian RN) Gen Hx Mental Retardation/Autism: No (01/31/2016 21:28:Bria Christian RN) Gen Hx Tested for Fragile X: No (01/31/2016 21:28:Bria Christian RN) Gen Hx Other Inher/Chromosomal: No (01/31/2016 21:28:Bria Christian RN) Gen Hx Maternal Metabolic DO: Yes (01/31/2016 21:28:Bria Christian RN) Gen Hx Pt Father or FOB Defect: No (01/31/2016 21:28:Bria Christian RN) Gen Hx Other Genetic History: No (01/31/2016 21:28:Bria Christian RN) Gen Hx Drugs/Meds since LMP: Yes (01/31/2016 21:28:Bria Christian RN) Gen Hx Medications: PNV; antacids (01/31/2016 21:28:Bria Christian RN) Details of Genetic History: RANDELL is 42 years old; FOB has sickle cell trait and all three children carry trait; FOB has cousins that from sickle cell; mom's father from type I diabetes (01/31/2016 21:28:Bria Christian RN)
--- NOTE | 2016-04-07 18:13 | L&D Current Admission ---
Current Admit Datetime Report Generated by CPN: 04/07/2016 18:00 ADMISSION INFORMATION Chief Complaint: Decreased Movement (02/15/2016 17:53:Ade Brewster RN)
--- NOTE | 2016-04-07 18:13 | L&D General Admission ---
General Admit Datetime Report Generated by CPN: 04/07/2016 18:00 INFORMATION Patient Age: 30 (01/31/2016 21:05:QS system process) EDC: 03/30/2016 00:00 (01/31/2016 21:28:Bria Christian RN) EDC per Ultrasound: 03/30/2016 00:00 (01/31/2016 21:28:Bria Christian RN) LMP: 06/14/2015 00:00 (01/31/2016 21:28:Bria Christian RN) : 4 (01/31/2016 21:28:rBia Christian RN) Para: 3 (01/31/2016 21:28:Bria Christian RN) Term: 3 (01/31/2016 21:28:Bria Christian RN) : 0 (01/31/2016 21:28:Bria Christian RN) Spontaneous Abortions: 0 (01/31/2016 21:28:Bria Christian RN) Induced Abortions: 0 (01/31/2016 21:28:Bria Christian RN) Livin (01/31/2016 21:28:Bria Christian RN) Cesareans: 3 (01/31/2016 21:28:Bria Christian RN) VBACs: 0 (01/31/2016 21:28:Bria Christian RN) Ectopic: 0 (01/31/2016 21:28:Bria Christian RN) Multiple Births: 0 (01/31/2016 21:28:Bria Christian RN) Baby, Number in Womb: 1 (01/31/2016 21:28:Bria Christian RN) CARE Primary Light Industrial: Other-Annotate (01/31/2016 21:28:Bria Christian RN) [employer] Other: [facility] (01/31/2016 21:28:Bria Christian RN) Month of 1st Visit: July (01/31/2016 21:28:Bria Christian RN) Adequate Care: Yes (01/31/2016 21:28:Bria Christian RN) Height (in): 65 (01/31/2016 21:23:QS system process) ALLERGIES Medication Allergy: No (01/31/2016 21:28:Bria Ring, RN) Medication Allergies: No Known Allergies (03/20/2016) (03/25/2016 07:42:QS system process) Latex Allergy: No Latex Allergies (01/31/2016 21:28:Bria Ring, RN) Food Allergies: None (01/31/2016 21:28:Bria Ring, RN) Environmental Allergies: None (01/31/2016 21:28:Bria Ring, RN) COMMUNICATION Primary Language: Estonian (01/31/2016 21:28:Bria Ring, RN) Medical Tx Preferred Language: Estonian (01/31/2016 21:28:Bria Ring, RN) DEMOGRAPHICS Address: [address] [place] [id number] (03/25/2016 07:42:QS system process) Zipcode: [address] (01/31/2016 21:05:QS system process) Home (01/31/2016 21:05:QS system process) Work (01/31/2016 21:05:QS system process) SSN: [id number] (01/31/2016 21:05:QS system process) Next of Kin Name: ANJALI TEE (01/31/2016 21:05:QS system process) Next of Kin (01/31/2016 21:05:QS system process) Next of Kin Relationship: SPO (01/31/2016 21:05:QS system process) Date of : 1985 (01/31/2016 21:05:QS system process) Marital Status: (01/31/2016 21:05:QS system process) Sex: Female (01/31/2016 21:05:QS system process) Race: (01/31/2016 21:05:QS system process) Ethnicity: Non- or (01/31/2016 21:05:QS system process) Caodaism: Protestant (01/31/2016 21:05:QS system process) DRUG AND ALCOHOL USE Alcohol: No (01/31/2016 21:28:Bria Christian RN) Cigarettes: Former Smoker. [id number] (01/31/2016 21:28:Bria Christian RN) Marijuana: No (01/31/2016 21:28:Bria Christian RN) Cocaine: No (01/31/2016 21:28:Bria Christian RN) Other Illicit Drugs: No (01/31/2016 21:28:Bria Christian RN) VACCINE HISTORY Influenza Vaccine: No (01/31/2016 21:28:Bria Christian RN) Pneumococcal Vaccine: No (01/31/2016 21:28:Bria Christian RN) Tetanus Vaccine: Yes (01/31/2016 21:28:Bria Christian RN) Tdap Vaccine: Yes (01/31/2016 21:28:Bria Christian RN) Tdap Date: 2015 (01/31/2016 21:28:Bria Christian RN) Hepatitis B Vaccine: Yes (01/31/2016 21:28:Bria Christian RN) Feeding Preference: Breast (01/31/2016 21:28:Bria Christian RN) Benefit of Breast Feed Discussed: Yes (01/31/2016 21:28:Bria Christian RN) Circumcision: N/A (01/31/2016 21:28:Bria Christian RN) Classes Attended: No (01/31/2016 21:28:Bria Christian RN) Tubal Ligation: Yes (01/31/2016 21:28:Bria Christian RN) Consent: N/A (01/31/2016 21:28:Bria Christian RN) Consent Signed: N/A (01/31/2016 21:28:Bria Christian RN) Pain Management Plans: Spinal (01/31/2016 21:28:Bria Christian RN) Support Person: Anjali Tee (01/31/2016 21:28:Bria Christian RN) Support Person Relationship: (01/31/2016 21:28:Bria Christian RN) Cultural/Spritual Practice: No (01/31/2016 21:28:Bria Christian RN) Spir/Cult Dietary Needs: No (01/31/2016 21:28:Bria Christian RN) LIVING SITUATION/DISCHARGE PLAN Living Arrangements: House (01/31/2016 21:28:Bria Christian RN) Adequate Access to:: Electric; Heat; Refrigeration; Plumbing/Running water; Phone; Transportation (01/31/2016 21:28:Bria Christian RN) WIC Program: Yes (01/31/2016 21:28:Bria Christian RN) Discharge Surgeon Partner Person: Anjali (01/31/2016 21:28:Bria Christian RN) Person to Help after Discharge: Anjali (01/31/2016 21:28:Bria Christian RN) Currently Using Commun Resources: Yes (01/31/2016 21:28:Bria Christian RN) Specify Current Resource Used: Medicaid and foodstamps (01/31/2016 21:28:Bria Christian RN) Outside Agency/Dinkey Engine Mechanic: N/A (01/31/2016 21:28:Bria Christian RN) Car Seat for Discharge: Yes (01/31/2016 21:28:Bria Christian RN) Adoption Requested: No (01/31/2016 21:28:Bria Christian RN) Pt Contact w/infant Post : N/A (01/31/2016 21:28:Bria Ring, RN) LABS Blood Type: O Positive (01/31/2016 21:28:Bria Christian RN) Antibody Screen: Negative (01/31/2016 21:28:Bria Christian RN) Hemoglobin: 10.1 L (03/26/2016 07:30:QS system process) Hematocrit: 29.8 L (03/26/2016 07:30:QS system process) MCV: 77 L (03/26/2016 07:30:QS system process) HIV Results: NEGATIVE (01/31/2016 22:01:QS system process) Rubella: POSITIVE NEGATIVE IF LESS THAN OR EQUAL TO 9.99 IU/mL POSITIVE IF GREATER THAN OR EQUAL TO 10.0 IU/mL (01/31/2016 22:01:QS system process) Rubella Titer: 23.60 (01/31/2016 22:01:QS system process) OB/PREVIOUS HISTORY LMP: 06/14/2015 00:00 (01/31/2016 21:28:Bria Christian RN) Previous Procedures: Ultrasound (01/31/2016 21:28:Bria Christian RN) Current Procedures: Ultrasound (01/31/2016 21:28:Bria Christian RN) History of Previous : Yes (01/31/2016 21:28:Bria Christian RN) History of Gestational Diabetes: No (01/31/2016 21:28:Bria Christian RN) History of PIH: No (01/31/2016 21:28:Bria Christian RN) History of Incompetent Cervix: No (01/31/2016 21:28:Bria Christian RN) History of Placenta Previa/Abrup: No (01/31/2016 21:28:Bria Christian RN) History of Macrosomia: Yes (01/31/2016 21:28:Bria Christian RN) History of IUGR: No (01/31/2016 21:28:Bria Christian RN) History of Hemorrhage: No (01/31/2016 21:28:Bria Christian RN) History of Loss/Stillborn: No (01/31/2016 21:28:Bria Christian RN) History of : No (01/31/2016 21:28:Bria Christian RN) History of D (Rh) Sensitization: No (01/31/2016 21:28:Bria Christian RN) History Recurrent Loss/Stillborn: No (01/31/2016 21:28:Bria Christian RN) History Depression/PP Depression: No (01/31/2016 21:28:Bria Christian RN) History of Uterine Anomaly/SUHAS: No (01/31/2016 21:28:Bria Christian RN) History of Infertility: No (01/31/2016 21:28:Bria Christian RN) History of ART Treatment: No (01/31/2016 21:28:Bria Christian RN) History of SUHAS: No (01/31/2016 21:28:Bria Christian RN) Comments Obstetrical History: G1: 2004; for breech presentation (42 weeks; baby turned during induction); boy 9#10 oz G2: 2006; repeat ; boy 8# 12 oz G3: 2012; repeat ; girl 10#15 oz (01/31/2016 21:28:Bria Christian RN) MEDICAL HISTORY Med Hx Diabetes: No (01/31/2016 21:28:Bria Christian RN) Med Hx Hypertension: No (01/31/2016 21:28:Bria Christian RN) Med Hx Heart Disease: No (01/31/2016 21:28:Bria Christian RN) Med Hx Autoimmune Disorder: No (01/31/2016 21:28:Bria Christian RN) Med Hx Kidney Disease/UTI: No (01/31/2016 21:28:Bria Christian RN) Med Hx Neurologic/Epilepsy: No (01/31/2016 21:28:Bria Christian RN) Med Hx Psychiatric Disorders: No (01/31/2016 21:28:Bria Christian RN) Med Hx Hepatitis/Liver Disease: No (01/31/2016 21:28:Bria Christian RN) Med Hx Varicosities/Phlebitis: No (01/31/2016 21:28:Bria Christian RN) Med Hx Thyroid Dysfunction: No (01/31/2016 21:28:Bria Christian RN) Med Hx Trauma/Violence: No (01/31/2016 21:28:Bria Christian RN) Med Hx Blood Transfusion: No (01/31/2016 21:28:Bria Christian RN) Med Hx Pulmonary (Asthma,TB): No (01/31/2016 21:28:Bria Christian RN) Med Hx Breast: No (01/31/2016 21:28:Bria Christian RN) Med Hx MANAGER TRANSPORTATION Surgery: No (01/31/2016 21:28:Bria Christian RN) Med Hx Hospitalization/Surgery: Yes (01/31/2016 21:28:Bria Christian RN) Med Hx Anesthetic Complications: No (01/31/2016 21:28:Bria Christian RN) Med Hx Abnormal Pap Smear: Yes (01/31/2016 21:28:Bria Christian RN) Other Medical Diseases: No (01/31/2016 21:28:Bria Christian RN) Med Hx Significant Family Hx: No (01/31/2016 21:28:Bria Christian RN) Details of Med/Surg Hx: hospitalized for prior ; MRSA in 2014 (surgically removed in pubic area) (01/31/2016 21:28:Bria Christian RN) INFECTIOUS HISTORY Inf Hx Gonorrhea: No (01/31/2016 21:28:Bria Christian RN) Inf Hx Chlamydia: No (01/31/2016 21:28:Bria Christian RN) Inf Hx Syphilis: No (01/31/2016 21:28:Bria Christian RN) Inf Hx HIV/AIDS: No (01/31/2016 21:28:Bria Christian RN) Inf Hx Human Papilloma Virus: No (01/31/2016 21:28:Bria Christian RN) Inf Hx Pt/Partner Genital Herpes: No (01/31/2016 21:28:Bria Christian RN) Inf Hx Tuberculosis/Exposure: No (01/31/2016 21:28:Bria Christian RN) Inf Hx Hepatitis B,C: No (01/31/2016 21:28:Bria Christian RN) Inf Hx Rash or Viral Illness: No (01/31/2016 21:28:Bria Christian RN) GENETIC HISTORY Gen Hx Age >=35 at RK: Yes (01/31/2016 21:28:Bria Christian RN) Gen Hx Thalassemia: No (01/31/2016 21:28:Bria Christian RN) Gen Hx Congenital Heart Defect: No (01/31/2016 21:28:Bria Christian RN) Gen Hx Neural Tube Defect: No (01/31/2016 21:28:Bria Christian RN) Gen Hx Down's Syndrome: No (01/31/2016 21:28:Bria Christian RN) Gen Hx Allan-Sachs: No (01/31/2016 21:28:Bria Christian RN) Gen Hx Elio: No (01/31/2016 21:28:Bria Christian RN) Gen Hx Familial Dysautonomia: No (01/31/2016 21:28:Bria Christian RN) Gen Hx Sickle Cell Disease/Trait: Yes (01/31/2016 21:28:Bria Christian RN) Gen Hx Hemophilia/Blood Disorder: No (01/31/2016 21:28:Bria Christian RN) Gen Hx Muscular Dystrophy: No (01/31/2016 21:28:Bria Christian RN) Gen Hx Cystic Fibrosis: No (01/31/2016 21:28:Bria Christian RN) Gen Hx [place] Chorea: No (01/31/2016 21:28:Bria Christian RN) Gen Hx Mental Retardation/Autism: No (01/31/2016 21:28:Bria Christian RN) Gen Hx Tested for Fragile X: No (01/31/2016 21:28:Bria Christian RN) Gen Hx Other Inher/Chromosomal: No (01/31/2016 21:28:Bria Christian RN) Gen Hx Maternal Metabolic DO: Yes (01/31/2016 21:28:Bria Christian RN) Gen Hx Pt Father or FOB Defect: No (01/31/2016 21:28:Bria Christian RN) Gen Hx Other Genetic History: No (01/31/2016 21:28:Bria Christian RN) Gen Hx Drugs/Meds since LMP: Yes (01/31/2016 21:28:Bria Christian RN) Gen Hx Medications: PNV; antacids (01/31/2016 21:28:Bria Christian RN) Details of Genetic History: RANDELL is 42 years old; FOB has sickle cell trait and all three children carry trait; FOB has cousins that from sickle cell; mom's father from type I diabetes (01/31/2016 21:28:Bria Christian RN)
--- NOTE | 2016-04-08 06:13 | L&D Current Admission ---
Current Admit Datetime Report Generated by CPN: 04/08/2016 06:00 ADMISSION INFORMATION Chief Complaint: Decreased Movement (02/15/2016 17:53:Ade Brewster RN)
--- NOTE | 2016-04-08 06:13 | L&D General Admission ---
General Admit Datetime Report Generated by CPN: 04/08/2016 06:00 INFORMATION Patient Age: 30 (01/31/2016 21:05:QS system process) EDC: 03/30/2016 00:00 (01/31/2016 21:28:Bria Christian RN) EDC per Ultrasound: 03/30/2016 00:00 (01/31/2016 21:28:Bria Christian RN) LMP: 06/14/2015 00:00 (01/31/2016 21:28:Bria Christian RN) : 4 (01/31/2016 21:28:Bria Christian RN) Para: 3 (01/31/2016 21:28:Bria Christian RN) Term: 3 (01/31/2016 21:28:Bria Christian RN) : 0 (01/31/2016 21:28:Bria Christian RN) Spontaneous Abortions: 0 (01/31/2016 21:28:Bria Christian RN) Induced Abortions: 0 (01/31/2016 21:28:Bria Christian RN) Livin (01/31/2016 21:28:Bria Christian RN) Cesareans: 3 (01/31/2016 21:28:Bria Christian RN) VBACs: 0 (01/31/2016 21:28:Bria Christian RN) Ectopic: 0 (01/31/2016 21:28:Bria Christian RN) Multiple Births: 0 (01/31/2016 21:28:Bria Christian RN) Baby, Number in Womb: 1 (01/31/2016 21:28:Bria Christian RN) CARE Primary Powder Blender And Pourer: Other-Annotate (01/31/2016 21:28:Bria Christian RN) Powder Blender And Pourer [facility] (01/31/2016 21:28:Bria Christian RN) Month of 1st Visit: July (01/31/2016 21:28:Bria Christian RN) Adequate Care: Yes (01/31/2016 21:28:Bria Christian RN) Height (in): 65 (01/31/2016 21:23:QS system process) ALLERGIES Medication Allergy: No (01/31/2016 21:28:Bria Ring, RN) Medication Allergies: No Known Allergies (03/20/2016) (03/25/2016 07:42:QS system process) Latex Allergy: No Latex Allergies (01/31/2016 21:28:Bria Ring, RN) Food Allergies: None (01/31/2016 21:28:Bria Ring, RN) Environmental Allergies: None (01/31/2016 21:28:Bria Ring, RN) COMMUNICATION Primary Language: Malay (01/31/2016 21:28:Bria Ring, RN) Medical Tx Preferred Language: Malay (01/31/2016 21:28:Bria Ring, RN) DEMOGRAPHICS Address: [address] [place] [id number] (03/25/2016 07:42:QS system process) Zipcode: [address] (01/31/2016 21:05:QS system process) Home (01/31/2016 21:05:QS system process) Work (01/31/2016 21:05:QS system process) SSN: [id number] (01/31/2016 21:05:QS system process) Next of Kin Name: ANJALI TEE (01/31/2016 21:05:QS system process) Next of Kin (01/31/2016 21:05:QS system process) Next of Kin Relationship: SPO (01/31/2016 21:05:QS system process) Date of : 1985 (01/31/2016 21:05:QS system process) Marital Status: (01/31/2016 21:05:QS system process) Sex: Female (01/31/2016 21:05:QS system process) Race: (01/31/2016 21:05:QS system process) Ethnicity: Non- or (01/31/2016 21:05:QS system process) Yarsanism: Congregation (01/31/2016 21:05:QS system process) DRUG AND ALCOHOL USE Alcohol: No (01/31/2016 21:28:Bria Christian RN) Cigarettes: Former Smoker. [id number] (01/31/2016 21:28:Bria Christian RN) Marijuana: No (01/31/2016 21:28:Bria Christian RN) Cocaine: No (01/31/2016 21:28:Bria Christian RN) Other Illicit Drugs: No (01/31/2016 21:28:Bria Christian RN) VACCINE HISTORY Influenza Vaccine: No (01/31/2016 21:28:Bria Christian RN) Pneumococcal Vaccine: No (01/31/2016 21:28:Bria Christian RN) Tetanus Vaccine: Yes (01/31/2016 21:28:Bria Christian RN) Tdap Vaccine: Yes (01/31/2016 21:28:Bria Christian RN) Tdap Date: 2015 (01/31/2016 21:28:Bria Christian RN) Hepatitis B Vaccine: Yes (01/31/2016 21:28:Bria Christian RN) Feeding Preference: Breast (01/31/2016 21:28:Bria Christian RN) Benefit of Breast Feed Discussed: Yes (01/31/2016 21:28:Bria Christian RN) Circumcision: N/A (01/31/2016 21:28:Bria hCristian RN) Classes Attended: No (01/31/2016 21:28:Bria Christian RN) Tubal Ligation: Yes (01/31/2016 21:28:Bria Christian RN) Consent: N/A (01/31/2016 21:28:Bria Christian RN) Consent Signed: N/A (01/31/2016 21:28:Bria Christian RN) Pain Management Plans: Spinal (01/31/2016 21:28:Bria Christian RN) Support Person: Anjali Tee (01/31/2016 21:28:Bria Christian RN) Support Person Relationship: (01/31/2016 21:28:Bria Christian RN) Cultural/Spritual Practice: No (01/31/2016 21:28:Bria Christian RN) Spir/Cult Dietary Needs: No (01/31/2016 21:28:Bria Christian RN) LIVING SITUATION/DISCHARGE PLAN Living Arrangements: House (01/31/2016 21:28:Bria Christian RN) Adequate Access to:: Electric; Heat; Refrigeration; Plumbing/Running water; Phone; Transportation (01/31/2016 21:28:Bria Christian RN) WIC Program: Yes (01/31/2016 21:28:Bria Christian RN) Discharge Management Lead Person: Anjali (01/31/2016 21:28:Bria Christian RN) Person to Help after Discharge: Anjali (01/31/2016 21:28:Bria Christian RN) Currently Using Commun Resources: Yes (01/31/2016 21:28:Bria Christian RN) Specify Current Resource Used: Medicaid and foodstamps (01/31/2016 21:28:Bria Christian RN) Outside Agency/Hl7 Developer: N/A (01/31/2016 21:28:Bria Christian RN) Car Seat for Discharge: Yes (01/31/2016 21:28:Bria Christian RN) Adoption Requested: No (01/31/2016 21:28:Bria Christian RN) Pt Contact w/infant Post : N/A (01/31/2016 21:28:Bria Ring, RN) LABS Blood Type: O Positive (01/31/2016 21:28:Bria Christian RN) Antibody Screen: Negative (01/31/2016 21:28:Bria Christian RN) Hemoglobin: 10.1 L (03/26/2016 07:30:QS system process) Hematocrit: 29.8 L (03/26/2016 07:30:QS system process) MCV: 77 L (03/26/2016 07:30:QS system process) HIV Results: NEGATIVE (01/31/2016 22:01:QS system process) Rubella: POSITIVE NEGATIVE IF LESS THAN OR EQUAL TO 9.99 IU/mL POSITIVE IF GREATER THAN OR EQUAL TO 10.0 IU/mL (01/31/2016 22:01:QS system process) Rubella Titer: 23.60 (01/31/2016 22:01:QS system process) OB/PREVIOUS HISTORY LMP: 06/14/2015 00:00 (01/31/2016 21:28:Bria Christian RN) Previous Procedures: Ultrasound (01/31/2016 21:28:Bria Christian RN) Current Procedures: Ultrasound (01/31/2016 21:28:Bria Christian RN) History of Previous : Yes (01/31/2016 21:28:Bria Christian RN) History of Gestational Diabetes: No (01/31/2016 21:28:Bria Christian RN) History of PIH: No (01/31/2016 21:28:Bria Christian RN) History of Incompetent Cervix: No (01/31/2016 21:28:Bria Christian RN) History of Placenta Previa/Abrup: No (01/31/2016 21:28:Bria Christian RN) History of Macrosomia: Yes (01/31/2016 21:28:Bria Christian RN) History of IUGR: No (01/31/2016 21:28:Bria Christian RN) History of Hemorrhage: No (01/31/2016 21:28:Bria Christian RN) History of Loss/Stillborn: No (01/31/2016 21:28:Bria Christian RN) History of : No (01/31/2016 21:28:Bria Christian RN) History of D (Rh) Sensitization: No (01/31/2016 21:28:Bria Christian RN) History Recurrent Loss/Stillborn: No (01/31/2016 21:28:Bria Christian RN) History Depression/PP Depression: No (01/31/2016 21:28:Bria Christian RN) History of Uterine Anomaly/SUHAS: No (01/31/2016 21:28:Bria Christian RN) History of Infertility: No (01/31/2016 21:28:Bria Christian RN) History of ART Treatment: No (01/31/2016 21:28:Bira Christian RN) History of SUHAS: No (01/31/2016 21:28:Bria Christian RN) Comments Obstetrical History: G1: 2004; for breech presentation (42 weeks; baby turned during induction); boy 9#10 oz G2: 2006; repeat ; boy 8# 12 oz G3: 2012; repeat ; girl 10#15 oz (01/31/2016 21:28:Bria Christian RN) MEDICAL HISTORY Med Hx Diabetes: No (01/31/2016 21:28:Bria Christian RN) Med Hx Hypertension: No (01/31/2016 21:28:Bria Christian RN) Med Hx Heart Disease: No (01/31/2016 21:28:Bria Christian RN) Med Hx Autoimmune Disorder: No (01/31/2016 21:28:Bria Christian RN) Med Hx Kidney Disease/UTI: No (01/31/2016 21:28:Bria Christian RN) Med Hx Neurologic/Epilepsy: No (01/31/2016 21:28:Bria Christian RN) Med Hx Psychiatric Disorders: No (01/31/2016 21:28:Bria Christian RN) Med Hx Hepatitis/Liver Disease: No (01/31/2016 21:28:Bria Christian RN) Med Hx Varicosities/Phlebitis: No (01/31/2016 21:28:Bria Christian RN) Med Hx Thyroid Dysfunction: No (01/31/2016 21:28:Bria Christian RN) Med Hx Trauma/Violence: No (01/31/2016 21:28:Bria Christian RN) Med Hx Blood Transfusion: No (01/31/2016 21:28:Bria Christian RN) Med Hx Pulmonary (Asthma,TB): No (01/31/2016 21:28:Bria Christian RN) Med Hx Breast: No (01/31/2016 21:28:Bria Christian RN) Med Hx SHADOWGRAPH OPERATOR Surgery: No (01/31/2016 21:28:Bria Christian RN) Med Hx Hospitalization/Surgery: Yes (01/31/2016 21:28:Bria Christian RN) Med Hx Anesthetic Complications: No (01/31/2016 21:28:Bria Christian RN) Med Hx Abnormal Pap Smear: Yes (01/31/2016 21:28:Bria Christian RN) Other Medical Diseases: No (01/31/2016 21:28:Bria Christian RN) Med Hx Significant Family Hx: No (01/31/2016 21:28:Bria Christian RN) Details of Med/Surg Hx: hospitalized for prior ; MRSA in 2014 (surgically removed in pubic area) (01/31/2016 21:28:Bria Christian RN) INFECTIOUS HISTORY Inf Hx Gonorrhea: No (01/31/2016 21:28:Bria Christian RN) Inf Hx Chlamydia: No (01/31/2016 21:28:Bria Christian RN) Inf Hx Syphilis: No (01/31/2016 21:28:Bria Christian RN) Inf Hx HIV/AIDS: No (01/31/2016 21:28:Bria Christian RN) Inf Hx Human Papilloma Virus: No (01/31/2016 21:28:Bria Christian RN) Inf Hx Pt/Partner Genital Herpes: No (01/31/2016 21:28:Bria Christian RN) Inf Hx Tuberculosis/Exposure: No (01/31/2016 21:28:Bria Christian RN) Inf Hx Hepatitis B,C: No (01/31/2016 21:28:Bria Christian RN) Inf Hx Rash or Viral Illness: No (01/31/2016 21:28:Bria Christian RN) GENETIC HISTORY Gen Hx Age >=35 at RK: Yes (01/31/2016 21:28:Bria Christian RN) Gen Hx Thalassemia: No (01/31/2016 21:28:Bria Christian RN) Gen Hx Congenital Heart Defect: No (01/31/2016 21:28:Bria Christian RN) Gen Hx Neural Tube Defect: No (01/31/2016 21:28:Bria Christian RN) Gen Hx Down's Syndrome: No (01/31/2016 21:28:Bria Christian RN) Gen Hx Allan-Sachs: No (01/31/2016 21:28:Bria Christian RN) Gen Hx Elio: No (01/31/2016 21:28:Bria Christian RN) Gen Hx Familial Dysautonomia: No (01/31/2016 21:28:Bria Christian RN) Gen Hx Sickle Cell Disease/Trait: Yes (01/31/2016 21:28:Bria Christian RN) Gen Hx Hemophilia/Blood Disorder: No (01/31/2016 21:28:Bria Christian RN) Gen Hx Muscular Dystrophy: No (01/31/2016 21:28:Bria Christian RN) Gen Hx Cystic Fibrosis: No (01/31/2016 21:28:Bria Christian RN) Gen Hx Huntingtons Chorea: No (01/31/2016 21:28:Bria Christian RN) Gen Hx Mental Retardation/Autism: No (01/31/2016 21:28:Bria Christian RN) Gen Hx Tested for Fragile X: No (01/31/2016 21:28:Bria Christian RN) Gen Hx Other Inher/Chromosomal: No (01/31/2016 21:28:Bria Christian RN) Gen Hx Maternal Metabolic DO: Yes (01/31/2016 21:28:Bria Christian RN) Gen Hx Pt Father or FOB Defect: No (01/31/2016 21:28:Bria Christian RN) Gen Hx Other Genetic History: No (01/31/2016 21:28:Bria Christian RN) Gen Hx Drugs/Meds since LMP: Yes (01/31/2016 21:28:Bria Christian RN) Gen Hx Medications: PNV; antacids (01/31/2016 21:28:Bria Christian RN) Details of Genetic History: RANDELL is 44 years old; FOB has sickle cell trait and all three children carry trait; FOB has cousins that from sickle cell; mom's father from type I diabetes (01/31/2016 21:28:Bria Christian RN)
--- NOTE | 2016-04-27 01:23 | Operative Report ---
Operative Report DATE OF SURGERY: 03/25/16 PREOPERATIVE DIAGNOSIS: 39w , previous section times 3, 10cm right ovarian cyst POSTOPERATIVE DIAGNOSIS: same, delivered, simple right ovarian cyst OPERATION: Repeat Low Transverse Section. Right Ovarian Cystectomy SURGEON: BIJAN MUÑOZ ANESTHESIA: Spinal TISSUE REMOVED OR ALTERED: placenta, ovarian cyst COMPLICATIONS: none ESTIMATED BLOOD LOSS: 600cc INTRAOPERATIVE FINDINGS: vaible female weight 8-14, ap 8/9; spontaneous intact placenta 3vc; 10cm right simple ovarian cyst- appears benign, normal uterus and tubes PROCEDURE: After appropriate consents had been obtained, the patient was taken to the operating room where regional anesthesia was placed without difficulty. The patient was prepped and draped in the normal sterile fashion in the dorsal supine position with a leftward tilt. Time out procedure was performed. Anesthesia was determined to be adequate and a pfannenstiel incision was made through the prior scar. The fascia was nicked in the midline then extended bilaterally with Bush scissors. The fascia was elevated and then the rectus muscles dissected off sharply. The rectus muscles were then in the midline and the peritonuem identified. The peritoneum was entered sharply and extended with good visualization of the bladder. Bladder blade was inserted and the bladder flap carefully dissected off the lower uterine segment. A transverse incision was made with the scalpel then extended bilaterally in an upward outward motion across the lower uterine segment. Amniotomy revealed clear fluid. The vertex was grasped and elevated easily through the incision followed by the remainder of the infant. The cord was doubly clamped and ligated. The infant was handed off the operative field to the waiting pediatric team. The placenta was then extracted manually intact. The uterus was exteriorized and cleansed of membranous tissue with a sponge on the direct chill casting operator's hand. The uterine incision was then repaired using 0 vicryl in a running locked fashion. A second layer of the same suture was used to imbricate for hemastasis. Attention was then turned to the right ovarian cyst. Bovie was used to make an opening in the cyst capsule. The metzenbaum scissors were used to disect the cyst from the capsule.Bovie was used to coagulate vessels in the to the cyst. The cyst was removed intact and sent to pathology. Hemastasis was achieved with the bovies on the cyst wall. 3-0 monocryl was used to close the ovarian capsule. The uterus was then returned to the abdomen and gutters were cleared of clots and debris. The fascial incision was closed with 0 vicryl in a running fashion to the midline. The subcutaneous layer was closed with 0 plain in a running stitch. the skin was closed with 4-0 monocryl in subcuticular running stitch. Sponge, lap and needle counts were correct. The patient was transferred to recovery in stable condition
== END 2016-03-27 13:34 | disposition home or self-care (01) | DRG 766 ==
LOC: 2S 05:00 → UNDOADMIN 07:42 → 2S 07:42
PROVIDERS: ADMIT Obstetrics & Gynecology; ATTEND Obstetrics & Gynecology
PROC: 0UB00ZZ Excision of Right Ovary, Open Approach (ICD-10-PCS; 2016-03-25)
PROC: 10D00Z1 Extraction of Products of Conception, Low, Open Approach (ICD-10-PCS; principal; 2016-03-25 07:45)
DX: O34.211 Maternal care for low transverse scar from previous cesarean delivery (principal); Z37.0 Single live birth; N85.8 Other specified noninflammatory disorders of uterus; O99.824 Streptococcus B carrier state complicating childbirth; O34.83 Maternal care for other abnormalities of pelvic organs, third trimester; N83.201 Unspecified ovarian cyst, right side; Z3A.39 39 weeks gestation of pregnancy
CPT/HCPCS: 1961; 36415; 59025; 80307; 81001; 85025; 85027; 86850; 86900; 86901; 88305; 94799; C1765; J0131; J0690; J1885; J2175; J2250; J2270; J2370; J2405; J2590; J3010; J7120

== ENCOUNTER 2016-09-03 21:30 | Emergency (ER) | payer SELFPAY ==
--- NOTE | 2016-09-03 23:01 | ER Document Report ---
ED Medical Screen (RME) - General Chief Complaint: Chest Pain Stated Complaint: CHEST PAIN Time Seen by Provider: 09/03/16 22:55 Notes: 30-year-old female, chief complaint of right-sided "chest pain", she points to her lower right ribs, states the pain seems to radiate around to her flank and also goes towards the middle of her abdomen. She reports some nausea, denies vomiting. Pain is not worse with eating. She notes increased pain with laughing and deep breath. Denies injury. History of , no other medical history reported. TRAVEL OUTSIDE OF THE [place] IN LAST 30 DAYS: No - Related Data Allergies/Adverse Reactions: No Known Allergies Allergy (Verified 03/20/16 16:08) Past Medical History Renal/ Medical History: Reports: Hx Ovarian Cysts. Denies: Hx Peritoneal Dialysis, Hx Pelvic Inflammatory Disease Malignancy Medical History: Denies: Hx Breast Cancer, Hx Cervical Cancer, Hx Ovarian Cancer GI Medical History: Reports: Hx Gastroesophageal Reflux Disease. Denies: Hx Hiatal Hernia, Hx Ulcer Musculoskeltal Medical History: Denies Hx Fibromyalgia Traumatic Medical History: Reports: Hx Fractures - collar bone fx as child Physical Exam - Vital signs Vitals: Temp Pulse Resp BP Pulse Ox 98.3 F 80 18 132/82 H 100 09/03/16 22:07 09/03/16 22:07 09/03/16 22:07 09/03/16 22:07 09/03/16 22:07 - Respiratory Respiratory status: No respiratory distress Breath sounds: Normal. No: Decreased air movement - Cardiovascular Rhythm: Regular. No: Tachycardia Heart sounds: Normal auscultation, S1 appreciated, S2 appreciated Course - Vital Signs Vital signs: Temp Pulse Resp BP Pulse Ox 98.3 F 80 18 132/82 H 100 09/03/16 22:07 09/03/16 22:07 09/03/16 22:07 09/03/16 22:07 09/03/16 22:07
[2016-09-03 23:21] LABS: ABSOLUTE BASOPHILS # (AUTO) 0.1 10^3/uL (0.0-0.2); ABSOLUTE EOSINOPHILS # (AUTO) 0.5 10^3/uL (0.0-0.6); ABSOLUTE LYMPHOCYTES (AUTO) 3.3 10^3/uL (0.5-4.7); ABSOLUTE MONOCYTES (AUTO) 0.7 10^3/uL (0.1-1.4); ABSOLUTE NEUT (AUTO) 7.5 10^3/uL (1.7-8.2); BASOPHILS % (AUTO) 1.2 % (0-2); EOSINOPHILS % (AUTO) 4.2 % (0-6); HEMATOCRIT 44.2 % (36.0-47.0); HGB HCT DIFFERENCE 0.8; MEAN CORPUSCULAR HEMOGLOBIN 27.7 pg (27.0-33.4); MEAN CORPUSCULAR HGB CONC 33.9 g/dL (32.0-36.0); MEAN CORPUSCULAR VOLUME 82 fl (80-97); MONOCYTES % (AUTO) 5.4 % (3-13); RED CELL DISTRIBUTION WIDTH 14.1 % (11.5-14.0); SEGMENTED NEUTROPHILS % (AUTO) 62.2 % (42-78)
--- NOTE | 2016-09-03 23:23 | RADIOLOGY REPORT (SQ) ---
EXAM DESCRIPTION: CHEST PA/LAT COMPLETED DATE/TIME: 09/03/2016 11:14 pm REASON FOR STUDY: right sided chest pain COMPARISON: None. EXAM PARAMETERS: NUMBER OF VIEWS: two views TECHNIQUE: Digital Frontal and Lateral radiographic views of the chest acquired. RADIATION DOSE: NA LIMITATIONS: none FINDINGS: LUNGS AND PLEURA: No opacities, masses or pneumothorax. No pleural effusion. MEDIASTINUM AND HILAR STRUCTURES: No masses or contour abnormalities. HEART AND VASCULAR STRUCTURES: Heart normal size. No evidence for failure. BONES: No acute findings. HARDWARE: None in the chest. OTHER: No other significant finding. IMPRESSION: NO SIGNIFICANT RADIOGRAPHIC FINDING IN THE CHEST. TECHNICAL DOCUMENTATION: JOB ID: [id number] [employer]- All Rights Reserved
[2016-09-03 23:24] LABS: APPEARANCE,URINE SLIGHTLY-CLOUDY; BILIRUBIN,URINE NEGATIVE (NEGATIVE); GLUCOSE, URINE NEGATIVE (NEGATIVE); KETONES,URINE NEGATIVE (NEGATIVE); LEUKOCYTE ESTERASE,URINE NEGATIVE (NEGATIVE); NITRITE,URINE NEGATIVE (NEGATIVE); PROTEIN,URINE NEGATIVE (NEGATIVE); URINE SPECIFIC GRAVITY 1.025; UROBILINOGEN,URINE NEGATIVE mg/dL (<2.0)
[2016-09-03 23:31] LABS: ALANINE AMINOTRANSFERASE 25 U/L (9-52); ALBUMIN 4.4 g/dL (3.5-5.0); ALKALINE PHOSPHATASE 68 U/L (38-126); ANION GAP 13 (5-19); ASPARTATE AMINO TRANSFERASE 17 U/L (14-36); BILIRUBIN,DIRECT 0.3 mg/dL (0.0-0.4); BILIRUBIN,TOTAL 0.7 mg/dL (0.2-1.3); BLOOD UREA NITROGEN 8 mg/dL (7-20); CALCIUM 9.6 mg/dL (8.4-10.2); CARBON DIOXIDE 25 mmol/L (22-30); CHLORIDE 106 mmol/L (98-107); CREATININE RESULT 0.77 mg/dL (0.52-1.25); GLUCOSE 92 mg/dL (75-110); LIPASE 154.7 U/L (23-300); POTASSIUM 3.9 mmol/L (3.6-5.0); SODIUM 143.6 mmol/L (137-145); TOTAL PROTEIN 7.4 g/dL (6.3-8.2)
--- NOTE | 2016-09-04 00:40 | ER Document Report ---
ED General - General Chief Complaint: Chest Pain Stated Complaint: CHEST PAIN Time Seen by Provider: 09/03/16 22:55 Mode of Arrival: Ambulatory Information source: Patient Notes: 30-year-old female presents with complaints of chest pain consistently since this morning. Patient admits to shortness of breath, notes the pain worsens when she takes a deep breath. Patient denies any fevers or chills denies any cough denies any other DVT or PE risk factors but does note she had a 5 months ago TRAVEL OUTSIDE OF THE [place] IN LAST 30 DAYS: No - HPI Onset: This morning - Patient has had intermittent chest pain in the past Onset/Duration: Persistent - but this has been constant Quality of pain: Sharp Severity: Mild Pain Level: 1 Associated symptoms: Chest pain, Shortness of breath Exacerbated by: Deep breathing Relieved by: Denies Similar symptoms previously: Yes Recently seen / treated by doctor: Yes - Related Data Allergies/Adverse Reactions: No Known Allergies Allergy (Verified 03/20/16 16:08) Past Medical History - Social History Smoking Status: Never Smoker Cigarette use (# per day): No Chew tobacco use (# tins/day): No Smoking Education Provided: No Family History: Reviewed & Not Pertinent Patient has suicidal ideation: No Patient has homicidal ideation: No Renal/ Medical History: Reports: Hx Ovarian Cysts. Denies: Hx Peritoneal Dialysis, Hx Pelvic Inflammatory Disease Malignancy Medical History: Denies: Hx Breast Cancer, Hx Cervical Cancer, Hx Ovarian Cancer GI Medical History: Reports: Hx Gastroesophageal Reflux Disease. Denies: Hx Hiatal Hernia, Hx Ulcer Musculoskeltal Medical History: Denies Hx Fibromyalgia Traumatic Medical History: Reports: Hx Fractures - collar bone fx as child Past Surgical History: Reports: Hx Section - x4 Review of Systems - Review of Systems Notes: REVIEW OF SYSTEMS: CONSTITUTIONAL : Denies fever, chills, or sweats. Denies recent illness. EENT: Denies eye, ear, throat, or mouth pain or symptoms. Denies nasal or sinus congestion or discharge. Denies throat, tongue, or mouth swelling or difficulty swallowing. CARDIOVASCULAR: Denies chest pain. Denies palpitations or racing or irregular heart beat. Denies ankle edema. RESPIRATORY: Admits to right-sided pain with breathing GASTROINTESTINAL: Denies abdominal pain or distention. Denies nausea, vomiting , or diarrhea. Denies blood in vomitus, stools, or per rectum. Denies black, tarry stools. Denies constipation. GENITOURINARY: Denies difficulty urinating, painful urination, burning, frequency, blood in urine, or discharge. FEMALE GENITOURINARY: Denies vaginal bleeding, heavy or abnormal periods, irregular periods. Denies vaginal discharge or odor. MUSCULOSKELETAL: Denies back or neck pain or stiffness. Denies joint pain or swelling. SKIN: Denies rash, lesions or sores. HEMATOLOGIC : Denies easy bruising or bleeding. LYMPHATIC: Denies swollen, enlarged glands. NEUROLOGICAL: Denies confusion or altered mental status. Denies passing out or loss of consciousness. Denies dizziness or lightheadedness. Denies headache. Denies weakness or paralysis or loss of use of either side. Denies problems with gait or speech. Denies sensory loss, numbness, or tingling. Denies seizures. PSYCHIATRIC: Denies anxiety or stress. Denies depression, suicidal ideation, or homicidal ideation. ALL OTHER SYSTEMS REVIEWED AND NEGATIVE. PHYSICAL EXAMINATION: GENERAL: Well-appearing, well-nourished and in no acute distress. HEAD: Atraumatic, normocephalic. EYES: Pupils equal round and reactive to light, extraocular movements intact, conjunctiva are normal. ENT: Nares patent, oropharynx clear without exudates. Moist mucous membranes. NECK: Normal range of motion, supple without lymphadenopathy LUNGS: Breath sounds clear to auscultation bilaterally and equal. No wheezes rales or rhonchi. HEART: Regular rate and rhythm without murmurs ABDOMEN: Soft, nontender, nondistended abdomen. No guarding, no rebound. No masses appreciated. Female : deferred Musculoskeletal: Normal range of motion, no pitting or edema. No cyanosis. NEUROLOGICAL: Cranial nerves grossly intact. Normal speech, normal gait. Normal sensory, motor exams PSYCH: Normal mood, normal affect. SKIN: Warm, Dry, normal turgor, no rashes or lesions noted. Dictation was performed using Note voice recognition software Physical Exam - Vital signs Vitals: Temp Pulse Resp BP Pulse Ox 98.3 F 80 18 132/82 H 100 09/03/16 22:07 09/03/16 22:07 09/03/16 22:07 09/03/16 22:07 09/03/16 22:07 Course - Re-evaluation Re-evalutation: 09/04/16 00:49 CTA pending to rule out a pulmonary emboli otherwise patient looks well is in no distress 09/04/16 01:43 EKG CTA labwork notes no significant abnormality, patient is otherwise stable I will discharge home with very close follow-up Given that patient has had these symptoms chronically After performing a Medical Screening Examination, I estimate there is LOW risk for RUPTURED ESOPHAGUS, PNEUMOTHORAX, PULMONARY EMBOLISM, ACUTE CORONARY SYNDROME, OR THORACIC AORTIC DISSECTION, thus I consider the discharge disposition reasonable. I have reevaluated this patient multiple times and no significant life threatening changes are noted. The patient and I have discussed the diagnosis and risks, and we agree with discharging home with close follow-up. We also discussed returning to the Emergency Department immediately if new or worsening symptoms occur. We have discussed the symptoms which are most concerning (e.g., bloody sputum, worsening pain or shortness of breath) that necessitate immediate return. - Vital Signs Vital signs: Temp Pulse Resp BP Pulse Ox 98.3 F 80 18 132/82 H 100 09/03/16 22:07 09/03/16 22:07 09/03/16 22:07 09/03/16 22:07 09/03/16 22:07 - Laboratory Result Diagrams: 09/03/16 23:00 09/03/16 23:00 Laboratory results interpreted by me: 09/03/16 23:00 WBC 12.0 H RBC 5.40 H RDW 14.1 H - Diagnostic Test Radiology reviewed: Image reviewed, Reports reviewed - EKG Interpretation by Me EKG shows normal: Sinus rhythm, [place], Intervals, QRS Complexes Discharge - Discharge Clinical Impression: Chest pain Qualifiers: Chest pain type: chest pain on breathing Qualified Code(s): R07.1 - Chest pain on breathing Condition: Stable Disposition: HOME, SELF-CARE Instructions: Chest Pain of Unclear Cause ([facility]) Referrals: FRANCK GUNTER MD [ACTIVE STAFF] - Follow up in 3-5 days
--- NOTE | 2016-09-04 01:40 | RADIOLOGY REPORT (SQ) ---
EXAM DESCRIPTION: CTA CHEST COMPLETED DATE/TIME: 09/04/2016 1:14 am REASON FOR STUDY: control ,right sided chest pain COMPARISON: None. TECHNIQUE: CT scan of the chest performed using helical scanning technique with dynamic intravenous contrast injection. Images reviewed with lung, soft tissue and bone windows. Reconstructed coronal and sagittal MPR images reviewed. Additional 3 dimensional post-processing performed to develop Maximal Intensity Projection images ([place] P). All images stored on PACS. All CT scanners at this facility use dose modulation, iterative reconstruction, and/or weight based d osing when appropriate to reduce radiation dose to as low as reasonably achievable (ALARA). [facility]: Dose Right [facility]: CareDose [facility]: Dose Right [facility]: Teradose 4D [facility]: [employer] CONTRAST TYPE AND DOSE: contrast/concentration: Isovue 370.00 mg/ml; Total Contrast Delivered: 100.0 ml; Total Saline Delivered: 40.0 ml RENAL FUNCTION: None required. The patient is less than 50 years old. RADIATION DOSE: Up-to-date CT equipment and radiation dose reduction techniques were employed. CTDIv ol: 17.8 mGy. DLP: 548 mGy-cm. . LIMITATIONS: As below. FINDINGS: LUNGS AND PLEURA: No masses, infiltrates, pneumothorax. No pleural effusions, calcificati ons. AORTA AND GREAT VESSELS: No aneurysm or dissection. HEART: No pericardial effusion. PULMONARY ARTERIES: No emboli visualized in the main pulmonary arteries or the segmental branches. P ulmonary arterial enhancement of 204 Hounsfield units achieved, decreasing sensitivity -specificity f or smaller emboli. HILAR AND MEDIASTINAL STRUCTURES: No identified masses or abnormal nodes. HARDWARE: None in the chest. UPPER ABDOMEN: Small cortical scar of the upper pole of the left kidney. 0.9 cm low likely left adre nal adenoma. Limited exam. THYROID AND OTHER SOFT TISSUES: No masses. No adenopathy. BONES: Moderate disc desiccation. 3D MIPS: Confirm above findings. OTHER: No other significant finding. IMPRESSION: No acute cardiopulmonary findings. No evidence of pulmonary emboli. Limitation. TECHNICAL DOCUMENTATION: JOB ID: [id number] Quality ID # [id number]: Final reports with documentation of one or more dose reduction techniques (e.g., Au tomated exposure control, adjustment of the mA and/or kV according to patient size, use of iterative reconstruction technique) 2010 [employer]- All Rights Reserved
[2016-09-04 01:54] VITALS: BP 123/81
--- NOTE | 2016-09-04 03:57 | EKG REPORT ---
SEVERITY:- ABNORMAL ECG - SINUS RHYTHM LEFT ATRIAL ABNORMALITY : Confirmed by: Digna Arreola MD 04-Sep-2016 03:55:43
== END 2016-09-04 01:53 | disposition home or self-care (01) ==
LOC: ER 21:30
DX: R07.1 Chest pain on breathing (principal); R06.02 Shortness of breath; Z98.890 Other specified postprocedural states
CPT/HCPCS: 36415; 71020; 71275; 80053; 81001; 81025; 83690; 85025; 93005; 93010; 99285